=== PATIENT | male | born 1945 | race Caucasian/White ===

== ENCOUNTER 2016-08-28 13:22 | Inpatient (IN) | payer MEDICARE, OTHER ==
[~2016-08-28] VITALS: Ht 167.6 cm; Wt 94.5 kg
[~2016-08-28 13:22] MED LIST: ALBU2.5V13 IH; ALLO100T PO; AMIO200T7 PO; ASPI81TA2 PO; BUME2TAB PO; CALC1TAB67 PO; CHOL20002 PO; CIPR250T PO; CLIN300C86 PO; DOCU100C5 PO; ENOX40DI SQ; FERR-26 PO; FLUT16SP2 NS; GLIM2TAB2 PO; GLUC1TAB71 PO; GUAI-42 PO; INSU100V13 SQ; LISI-334 PO; MELA1TAB6 PO; METO25TA4 PO; MULT-658 PO; OMEG-113 PO; OMEG1CAP6 PO; OXYC-323 PO; Oxycodone Hcl/Acetaminophen PO; PHYT100T PO; POTA10TA31 PO; RANI150T2 PO; SIMV20TA3 PO; SITA100T PO; TRAM50TA PO; WARF2TAB7 PO; WARF3TAB PO; WARF3TAB7 PO; WARF5TAB7 PO; ZOLP10TA4 PO; ZOLP5TAB PO
[2016-08-28] MEDS ORDERED: ALEN70TA5 PO (14:52)
--- NOTE | 2016-08-28 15:47 | EKG ---
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
--- NOTE | 2016-08-28 16:00 | RAD ---
Indication: Shortness of air. Time of exam 1554 hours. Correlation is made with prior exam from 07/12/2015. The heart remains enlarged. There are changes of median sternotomy. Cardiac pacemaker remains in place. Congestive changes in both lungs are noted. There appear to be small bilateral effusions. There is no pneumothorax. Impression: Findings consistent with congestive failure. PQRS Compliance Statement: One or more of the following individualized dose reduction techniques were utilized for this examination: 1. Automated exposure control 2. Adjustment of the mA and/or kV according to patient size 3. Use of iterative reconstruction technique
[2016-08-28 16:30] LABS: BASO # 0.1 x10^3/uL (0.0-0.2); BASO % 1 % (0-3); EOS % 3 % (0-3); HEMATOCRIT 38.3 % (39.0-53.0); HEMOGLOBIN 12.1 g/dL (13.0-17.5); LYMPH # 0.9 x10^3/uL (1.0-4.8); LYMPH % 10 % (24-48); MEAN CORPUSCULAR HEMOGLOBIN 25 pg (25-35); MEAN CORPUSCULAR HGB CONC 32 g/dL (31-37); MEAN CORPUSCULAR VOLUME 80 fL (79-100); MONO % 9 % (0-9); NEUT % 77 % (31-73); PLATELET COUNT 231 x10^3/uL (140-400); RED BLOOD COUNT 4.81 x10^6/uL (4.30-5.70); RED CELL DISTRIBUTION WIDTH 18.9 % (11.5-14.5); WHITE BLOOD COUNT 9.6 x10^3/uL (4.0-11.0)
[2016-08-28 16:45] LABS: CALCIUM 9.9 mg/dL (8.5-10.1); CREATININE 1.4 mg/dL (0.7-1.3); GFR 49.7; POTASSIUM 4.2 mmol/L (3.5-5.1)
[2016-08-28 16:51] LABS: ALBUMIN 3.3 g/dL (3.4-5.0); ALBUMIN/GLOBULIN RATIO 0.9 (1.0-1.7); TOTAL BILIRUBIN 0.8 mg/dL (0.2-1.0); TOTAL PROTEIN 7.1 g/dL (6.4-8.2)
[2016-08-28 16:53] LABS: BILIRUBIN,URINE NEGATIVE (NEG); GLUCOSE,URINE NEGATIVE (NEG); NITRITE,URINE NEGATIVE (NEG); PROTEIN,URINE 30 mg/dL (NEG-TRACE); UROBILINOGEN,URINE 0.2 mg/dL (0.2 mg/dL)
[2016-08-28] MEDS ORDERED: IV NORMAL SALINE 1000ML BAG 1,000 ML IV SCH (17:16)
[2016-08-28 17:18] LABS: BACTERIA,URINE 0 /HPF (0-FEW); SQUAMOUS EPITHELIAL CELL,UR OCC /LPF; WBC,URINE 0 /HPF (0-4)
--- NOTE | 2016-08-28 17:20 | PHYS DOC ---
Past Medical History Past Medical History: A-Fib, Arthritis, CAD, Diabetes-Type II, Hypertension Past Surgical History: Coronary Bypass Surgery Additional Past Surgical Histo: carpal tunnel right, "lung cleaning", cardiac stents X 7, r thoracotomy Alcohol Use: None Drug Use: None Adult General Chief Complaint Chief Complaint: SHORTNESS OF BREATH HPI HPI Patient is a 71 year old male who presents with complaint of worsening shortness of breath. Patient states that he started having symptoms over the past 2 weeks, however they acutely became worse over the past 24 hours. Patient states that he is unable to ambulate normal distances before becoming severely short of breath. Patient denies any chest pain or fever associated with his symptoms. Patient has history of atrial fibrillation, myocardial infarction, and congestive heart failure. Patient follows a Dr. Mondragon of cardiology and Dr. Torres of nephrology. Patient has been taking his water pill at home with no improvement in symptoms. Patient states that he has had increased abdominal girth over the past 2 weeks as well as weight gain which he attributes to edema. Review of Systems Review of Systems Constitutional: Denies fever or chills [] Eyes: Denies change in visual acuity, redness, or eye pain [] HENT: Denies nasal congestion or sore throat [] Respiratory: Orthopnea, dyspnea on exertion [] Cardiovascular: Lower extremity and abdominal edema, denies chest pain [] GI: Denies abdominal pain, nausea, vomiting, bloody stools or diarrhea [] : Denies dysuria or hematuria [] Musculoskeletal: Denies back pain or joint pain [] Integument: Denies rash or skin lesions [] Neurologic: Denies headache, focal weakness or sensory changes [] Allergies Allergies Allergies Coded Allergies Type Severity Reaction Last Updated Verified Penicillins Allergy Intermediate 08/28/16 Yes morphine Allergy Intermediate "it does bad things" 06/21/15 Yes NSAIDS (Non-Steroidal Anti-Inflamma Adverse Reaction Severe AVOIDS DUE TO CHRONIC KIDNEY DISEASE 06/21/15 Yes Physical Exam Physical Exam Constitutional: Alert, afebrile, appears in [id number] respiratory distress. [] HENT: Normocephalic, atraumatic, bilateral external ears normal, oropharynx moist, no oral exudates, nose normal. [] Eyes: PERRLA, EOMI, conjunctiva normal, no discharge. [] Neck: Normal range of motion, no tenderness, supple, no stridor. [] Cardiovascular: Regular rate and rhythm, no murmur [] Lungs & Thorax: Tachypneic, bilateral rales, mildly restricted air movement bilaterally [] Abdomen: Bowel sounds normal, mild to moderate abdominal distention with abdominal wall edema present, no tenderness, no masses, no pulsatile masses. [] Skin: Warm, dry, no erythema, no rash. [] Back: No tenderness, no CVA tenderness. [] Extremities: No tenderness, no cyanosis, no clubbing, ROM intact, 2+ pitting edema in the bilateral lower extremities. [] Neurologic: Alert and oriented X 3, normal motor function, normal sensory function, no focal deficits noted. [] Current Patient Data Vital Signs Vital Signs Date Time Temp Pulse Resp B/P Pulse Ox O2 Delivery O2 Flow Rate FiO2 08/28/16 16:14 80 30 140/88 91 Room Air 08/28/16 14:56 98.5 98.5 Lab Values Laboratory Tests Test 08/28/16 16:00 08/28/16 16:20 White Blood Count 9.6x10^3/uL (4.0-11.0) Red Blood Count 4.81x10^6/uL (4.30-5.70) Hemoglobin 12.1g/dL (13.0-17.5) L Hematocrit 38.3% (39.0-53.0) L Mean Corpuscular Volume 80fL (79-100) Mean Corpuscular Hemoglobin 25pg (25-35) Mean Corpuscular Hemoglobin Concent 32g/dL (31-37) Red Cell Distribution Width 18.9% (11.5-14.5) H Platelet Count 231x10^3/uL (140-400) Neutrophils (%) (Auto) 77% (31-73) H Lymphocytes (%) (Auto) 10% (24-48) L Monocytes (%) (Auto) 9% (0-9) Eosinophils (%) (Auto) 3% (0-3) Basophils (%) (Auto) 1% (0-3) Neutrophils # (Auto) 7.4x10^3uL (1.8-7.7) Lymphocytes # (Auto) 0.9x10^3/uL (1.0-4.8) L Monocytes # (Auto) 0.9x10^3/uL (0.0-1.1) Eosinophils # (Auto) 0.3x10^3/uL (0.0-0.7) Basophils # (Auto) 0.1x10^3/uL (0.0-0.2) Sodium Level 144mmol/L (136-145) Potassium Level 4.2mmol/L (3.5-5.1) Chloride Level 104mmol/L (98-107) Carbon Dioxide Level 33mmol/L (21-32) H Anion Gap 7 (6-14) Blood Urea Nitrogen 33mg/dL (8-26) H Creatinine 1.4mg/dL (0.7-1.3) H Estimated GFR (Cockcroft-Gault) 49.7 BUN/Creatinine Ratio 24 (6-20) H Glucose Level 178mg/dL (70-99) H Calcium Level 9.9mg/dL (8.5-10.1) Total Bilirubin 0.8mg/dL (0.2-1.0) Aspartate Amino Transferase (AST) 40U/L (15-37) H Alanine Aminotransferase (ALT) 36U/L (16-63) Alkaline Phosphatase 174U/L (46-116) H Creatine Kinase 226U/L (39-308) Creatine Kinase MB (Mass) 9.0ng/mL (0.0-3.6) H Creatine Kinase MB Relative Index 4.0% (0-4) Troponin I Quantitative 0.043ng/mL (0.000-0.055) NS-Xzj-P-Type Natriuretic Peptide 05821sh/mL (0-124) H Total Protein 7.1g/dL (6.4-8.2) Albumin 3.3g/dL (3.4-5.0) L Albumin/Globulin Ratio 0.9 (1.0-1.7) L Prothrombin Time 25.4SEC (11.7-14.0) H Prothrombin Time INR 2.5 (0.8-1.1) H Laboratory Tests 08/28/16 16:00 Laboratory Tests 08/28/16 16:00 EKG EKG Interpreted by me: 80 bpm, Paced ventricular rhythm, no acute ST elevations or depressions [] Radiology/Procedures Radiology/Procedures [facility] [address] [place] [address] IMAGING REPORT Signed PATIENT: ELENI HALL ACCOUNT: [id number] : 1945 LOCATION: ER AGE: 71 SEX: M EXAM STATUS: REG ER ORD. PHYSICIAN: FRANCISCO KING MD REASON: shortness of breath PROCEDURE: PORTABLE CHEST 1V Indication: Shortness of air. Time of exam 1554 hours. Correlation is made with prior exam from 07/12/2015. The heart remains enlarged. There are changes of median sternotomy. Cardiac pacemaker remains in place. Congestive changes in both lungs are noted. There appear to be small bilateral effusions. There is no pneumothorax. Impression: Findings consistent with congestive failure. PQRS Compliance Statement: One or more of the following individualized dose reduction techniques were utilized for this examination: 1. Automated exposure control 2. Adjustment of the mA and/or kV according to patient size 3. Use of iterative reconstruction technique DICTATED and SIGNED BY: TAMY DUMONT MD DATE: 08/28/167 CC: FRANCISCO KING MD; ISAAC GROSS MD ~ [] Course & Med Decision Making Course & Med Decision Making Pertinent Labs and Imaging studies reviewed. (See chart for details) Patient appears to be in acute congestive heart failure. The patient was given 80 mg of IV Lasix. Patient will need to be admitted for further treatment as he has visible signs of pulmonary edema on his chest x-ray. I spoke with Dr. Morris who accepted care of patient in hospital. A consult was placed to Dr. Mondragon of cardiology to follow with patient in hospital. Dragon Disclaimer Dragon Disclaimer This electronic medical record was generated, in whole or in part, using a voice recognition dictation system. Departure Departure Impression: Primary Impression: Acute on chronic congestive heart failure Additional Impression: Chronic renal insufficiency Disposition: ADMITTED INPATIENT Admitting Physician: Lucian Morris Condition: GUARDED Referrals: ISAAC GROSS MD (PCP) Problem Qualifiers Primary Impression: Acute on chronic congestive heart failure Congestive heart failure type: unspecified congestive heart failure type Qualified Code: I50.9 - Heart failure, unspecified Additional Impression: Chronic renal insufficiency Chronic kidney disease stage: stage 3 (moderate) Qualified Code: N18.3 - Chronic kidney disease, stage 3 (moderate) FRANCISCO KING MD Aug 28, 2016 17:20
[2016-08-28] MEDS ORDERED: ONDANSETRON PF 4 MG/2 ML VIAL. IV PRN (17:30)
[2016-08-28] MEDS ORDERED: ACETAMINOPHEN 325 MG TABLET. PO PRN (17:30)
[2016-08-28] MEDS ORDERED: FENTANYL PF 100 MCG/2 ML VIAL. IV PRN (17:30)
[2016-08-28 18:00] VITALS: BP 129/76
[2016-08-28] MEDS ORDERED: FUROSEMIDE 100 MG/10 ML VIAL IVP ONE (18:00)
[2016-08-28] MEDS ORDERED: GUAI-42 PO (18:49)
[2016-08-28] MEDS ORDERED: AMOX1TAB61 PO (18:49)
[2016-08-28] MEDS ORDERED: WARF2.5T7 PO (18:49)
[2016-08-28] MEDS ORDERED: MULT-245 PO (18:49)
[2016-08-28] MEDS ORDERED: ACET500T33 PO (18:49)
[2016-08-28] MEDS ORDERED: CHOL20002 PO (18:49)
[2016-08-28] MEDS ORDERED: WARF5TAB7 PO (18:49)
[2016-08-28] MEDS ORDERED: POTA20TA82 PO (18:49)
[2016-08-28] MEDS ORDERED: DEXTROSE 50% 25 GM / 50ML DISP.SYRIN. IV PRN (19:00)
[2016-08-28 19:05] VITALS: BP 130/80
[2016-08-28] MEDS ORDERED: OXYCODONE/APAP 5/325 TABLET. PO PRN (19:30)
[2016-08-28] MEDS ORDERED: ACETAMINOPHEN 500 MG TABLET PO PRN (19:30)
[2016-08-28 20:01] LABS: INR 2.5 (0.8-1.1); PROTHROMBIN TIME PATIENT 25.4 SEC (11.7-14.0)
--- NOTE | 2016-08-28 20:41 | PDOC1 ---
History and Physical Past Medical History Cardiovascular: AFIB, CAD, CHF, HTN Pulmonary: Pneumonia Endocrine: Diabetes Past Surgical History Past Surgical History: CABG, Total knee replacement Family History Family History: Cancer, Diabetes, Heart Disease Social History ALCOHOL: none Drugs: None Current Problem List Problem List Problems Medical Problems: (1) Acute on chronic congestive heart failure Status: Acute Current Medications Current Medications Current Medications Medications (Trade) Dose Ordered Sig/Logan Start Time Stop Time Status Last Admin Dose Admin Acetaminophen (Tylenol) 500 mg PRN Q12HR PRN 08/28/16 19:30 Allopurinol (Zyloprim) 100 mg QHS 08/28/16 21:00 Amoxicillin/ Clavulanate Potassium (Augmentin 875/ 125mg) 1 tab BID 08/28/16 21:00 Aspirin (Children'S Aspirin) 81 mg DAILY 08/29/16 09:00 Bumetanide (Bumex) 2 mg DAILYWBKFT 08/29/16 08:00 Dextrose 12.5 gm PRN Q15MIN PRN 08/28/16 19:00 Famotidine (Pepcid) 20 mg BID 08/28/16 21:00 Fentanyl Citrate 50 mcg 50 mcg PRN Q2HR PRN 08/28/16 17:30 08/29/16 17:29 Furosemide (Lasix) 80 mg 1X ONCE 08/28/16 18:00 08/28/16 18:01 DC 08/28/16 19:37 80 MG Guaifenesin (MUCINEX ER with DM) 1 tab QHS 08/28/16 21:00 Insulin Aspart (Novolog) 0-9 UNITS TIDWMEALS 08/29/16 08:00 Insulin Detemir (Levemir) 20 units QHS 08/28/16 21:00 Linagliptin (Tradjenta) 5 mg DAILY 08/29/16 09:00 Multivitamins/ Calcium (Thera M Plus) 1 tab DAILY 08/29/16 09:00 Non-Formulary Medication 1 tab QFR 08/31/16 16:00 UNV Ondansetron HCl (Zofran) 4 mg PRN Q8HRS PRN 08/28/16 17:30 08/29/16 17:29 Oxycodone/ Acetaminophen (Percocet 5/325) 1 tab PRN Q4HRS PRN 08/28/16 19:30 Potassium Chloride (Klor-Con) 20 meq DAILYWBKFT 08/29/16 08:00 Simvastatin (Zocor) 20 mg HS 08/28/16 21:00 Sodium Chloride (Iv Sodium Chloride 0.9% 1000ml Bag) 1,000 ml @ 30 mls/hr Q24H 08/28/16 17:16 08/29/16 17:15 Vitamin D (Vitamin D3) 3,000 unit DAILY 08/29/16 09:00 Warfarin Sodium (Coumadin Per Physician) 1 each PRN DAILY PRN 08/28/16 20:15 Warfarin Sodium (Coumadin) 5 mg DAILY16 08/28/16 21:00 Allergies Allergies Allergies Coded Allergies Type Severity Reaction Last Updated Verified Penicillins Allergy Intermediate 08/28/16 Yes morphine Allergy Intermediate "it does bad things" 06/21/15 Yes NSAIDS (Non-Steroidal Anti-Inflamma Adverse Reaction Severe AVOIDS DUE TO CHRONIC KIDNEY DISEASE 06/21/15 Yes ROS Review of System CONSTITUTIONAL: No fever or chills EYES: No recent changes SKIN: No rash or itching CARDIOVASCULAR: sob and weight gain RESPIRATORY: No SOB or cough GASTROINTESTINAL: No nausea, vomiting or abdominal pain NEUROLOGICAL: No headaches or weakness ENDOCRINE: No cold or heat intolerance GENITOURINARY: No urgency or frequency of urination MUSCULOSKELETAL: No back pain or joint pain LYMPHATICS: No enlarged lymph nodes PSYCHIATRIC: No anxiety or depression Physical Exam Physical Exam GEN.: No apparent distress. Alert and oriented. HEENT: Head is normocephalic, atraumatic NECK: Supple. no jvd LUNGS: Clear to auscultation. basal rales HEART: RRR, S1, S2 present. Peripheral pulses intact ABDOMEN: Soft, nontender. Positive bowel sounds. EXTREMITIES: Without any cyanosis. +1 edema NEUROLOGIC: Normal speech, normal tone PSYCHIATRIC: Normal affect, normal mood. SKIN: No ulcerations Vitals Vitals Vital Signs Date Time Temp Pulse Resp B/P Pulse Ox O2 Delivery O2 Flow Rate FiO2 08/28/16 19:05 98.5 85 18 130/80 96 Room Air 98.5 Labs Labs Laboratory Tests Test 08/28/16 16:00 08/28/16 16:20 08/28/16 16:45 08/28/16 18:09 White Blood Count 9.6x10^3/uL (4.0-11.0) Red Blood Count 4.81x10^6/uL (4.30-5.70) Hemoglobin 12.1g/dL (13.0-17.5) Hematocrit 38.3% (39.0-53.0) Mean Corpuscular Volume 80fL (79-100) Mean Corpuscular Hemoglobin 25pg (25-35) Mean Corpuscular Hemoglobin Concent 32g/dL (31-37) Red Cell Distribution Width 18.9% (11.5-14.5) Platelet Count 231x10^3/uL (140-400) Neutrophils (%) (Auto) 77% (31-73) Lymphocytes (%) (Auto) 10% (24-48) Monocytes (%) (Auto) 9% (0-9) Eosinophils (%) (Auto) 3% (0-3) Basophils (%) (Auto) 1% (0-3) Neutrophils # (Auto) 7.4x10^3uL (1.8-7.7) Lymphocytes # (Auto) 0.9x10^3/uL (1.0-4.8) Monocytes # (Auto) 0.9x10^3/uL (0.0-1.1) Eosinophils # (Auto) 0.3x10^3/uL (0.0-0.7) Basophils # (Auto) 0.1x10^3/uL (0.0-0.2) Sodium Level 144mmol/L (136-145) Potassium Level 4.2mmol/L (3.5-5.1) Chloride Level 104mmol/L (98-107) Carbon Dioxide Level 33mmol/L (21-32) Anion Gap 7 (6-14) Blood Urea Nitrogen 33mg/dL (8-26) Creatinine 1.4mg/dL (0.7-1.3) Estimated GFR (Cockcroft-Gault) 49.7 BUN/Creatinine Ratio 24 (6-20) Glucose Level 178mg/dL (70-99) Calcium Level 9.9mg/dL (8.5-10.1) Total Bilirubin 0.8mg/dL (0.2-1.0) Aspartate Amino Transf (AST/SGOT) 40U/L (15-37) Alanine Aminotransferase (ALT/SGPT) 36U/L (16-63) Alkaline Phosphatase 174U/L (46-116) Creatine Kinase 226U/L (39-308) Creatine Kinase MB (Mass) 9.0ng/mL (0.0-3.6) Creatine Kinase MB Relative Index 4.0% (0-4) Troponin I Quantitative 0.043ng/mL (0.000-0.055) ER-Bht-M-Type Natriuretic Peptide 84498jg/mL (0-124) Total Protein 7.1g/dL (6.4-8.2) Albumin 3.3g/dL (3.4-5.0) Albumin/Globulin Ratio 0.9 (1.0-1.7) Prothrombin Time 25.4SEC (11.7-14.0) Prothromb Time International Ratio 2.5 (0.8-1.1) Urine Collection Type Unknown Urine Color Yellow Urine Clarity Clear Urine pH 5.0 Urine Specific [place] 1.020 Urine Protein 30mg/dL (NEG-TRACE) Urine Glucose (UA) Negativemg/dL (NEG) Urine Ketones (Stick) Negativemg/dL (NEG) Urine Blood Moderate (NEG) Urine Nitrite Negative (NEG) Urine Bilirubin Negative (NEG) Urine Urobilinogen Dipstick 0.2mg/dL (0.2 mg/dL) Urine Leukocyte Esterase Negative (NEG) Urine RBC 3-5/HPF (0-2) Urine WBC 0/HPF (0-4) Urine Squamous Epithelial Cells Occ/LPF Urine Bacteria 0/HPF (0-FEW) Urine Mucus Marked/LPF Glucose (Fingerstick) 140mg/dL (70-99) Laboratory Tests Test 08/28/16 16:00 08/28/16 16:20 08/28/16 16:45 08/28/16 18:09 White Blood Count 9.6x10^3/uL (4.0-11.0) Red Blood Count 4.81x10^6/uL (4.30-5.70) Hemoglobin 12.1g/dL (13.0-17.5) Hematocrit 38.3% (39.0-53.0) Mean Corpuscular Volume 80fL (79-100) Mean Corpuscular Hemoglobin 25pg (25-35) Mean Corpuscular Hemoglobin Concent 32g/dL (31-37) Red Cell Distribution Width 18.9% (11.5-14.5) Platelet Count 231x10^3/uL (140-400) Neutrophils (%) (Auto) 77% (31-73) Lymphocytes (%) (Auto) 10% (24-48) Monocytes (%) (Auto) 9% (0-9) Eosinophils (%) (Auto) 3% (0-3) Basophils (%) (Auto) 1% (0-3) Neutrophils # (Auto) 7.4x10^3uL (1.8-7.7) Lymphocytes # (Auto) 0.9x10^3/uL (1.0-4.8) Monocytes # (Auto) 0.9x10^3/uL (0.0-1.1) Eosinophils # (Auto) 0.3x10^3/uL (0.0-0.7) Basophils # (Auto) 0.1x10^3/uL (0.0-0.2) Sodium Level 144mmol/L (136-145) Potassium Level 4.2mmol/L (3.5-5.1) Chloride Level 104mmol/L (98-107) Carbon Dioxide Level 33mmol/L (21-32) Anion Gap 7 (6-14) Blood Urea Nitrogen 33mg/dL (8-26) Creatinine 1.4mg/dL (0.7-1.3) Estimated GFR (Cockcroft-Gault) 49.7 BUN/Creatinine Ratio 24 (6-20) Glucose Level 178mg/dL (70-99) Calcium Level 9.9mg/dL (8.5-10.1) Total Bilirubin 0.8mg/dL (0.2-1.0) Aspartate Amino Transf (AST/SGOT) 40U/L (15-37) Alanine Aminotransferase (ALT/SGPT) 36U/L (16-63) Alkaline Phosphatase 174U/L (46-116) Creatine Kinase 226U/L (39-308) Creatine Kinase MB (Mass) 9.0ng/mL (0.0-3.6) Creatine Kinase MB Relative Index 4.0% (0-4) Troponin I Quantitative 0.043ng/mL (0.000-0.055) SN-Ksj-O-Type Natriuretic Peptide 75875bm/mL (0-124) Total Protein 7.1g/dL (6.4-8.2) Albumin 3.3g/dL (3.4-5.0) Albumin/Globulin Ratio 0.9 (1.0-1.7) Prothrombin Time 25.4SEC (11.7-14.0) Prothromb Time International Ratio 2.5 (0.8-1.1) Urine Collection Type Unknown Urine Color Yellow Urine Clarity Clear Urine pH 5.0 Urine Specific [place] 1.020 Urine Protein 30mg/dL (NEG-TRACE) Urine Glucose (UA) Negativemg/dL (NEG) Urine Ketones (Stick) Negativemg/dL (NEG) Urine Blood Moderate (NEG) Urine Nitrite Negative (NEG) Urine Bilirubin Negative (NEG) Urine Urobilinogen Dipstick 0.2mg/dL (0.2 mg/dL) Urine Leukocyte Esterase Negative (NEG) Urine RBC 3-5/HPF (0-2) Urine WBC 0/HPF (0-4) Urine Squamous Epithelial Cells Occ/LPF Urine Bacteria 0/HPF (0-FEW) Urine Mucus Marked/LPF Glucose (Fingerstick) 140mg/dL (70-99) VTE Prophylaxis Ordered VTE Prophylaxis Devices: Yes VTE Pharmacological Prophylaxi: No FAVIAN EMANUEL MD Aug 28, 2016 20:41
[2016-08-28] MEDS ORDERED: WARFARIN 5 MG TABLET. PO SCH (21:00)
[2016-08-28] MEDS: SIMVASTATIN 20 MG TABLET PO SCH (21:18)
[2016-08-28] MEDS: ALLOPURINOL 100 MG TABLET. PO SCH (21:18)
[2016-08-28] MEDS: AMOXICILLIN/K CLAV 875/125MG TABLET. PO SCH (21:18)
[2016-08-28] MEDS: FAMOTIDINE 20 MG TABLET. PO SCH (21:18)
[2016-08-28] MEDS: GUAIFENESIN DM 600/30MG TAB.ER.12H. PO SCH (21:19)
[2016-08-28] MEDS: INSULIN DETEMIR 300 UNITS/3 ML INSULN.PEN. SQ SCH (21:21)
[2016-08-28 23:00] VITALS: BP 151/81
--- NOTE | 2016-08-29 00:54 | HP ---
ADMIT DATE: 08/28/2016 CHIEF COMPLAINT: Shortness of breath and weight gain. HISTORY OF PRESENT ILLNESS: This is a 71-year-old male patient with prior history of AFib and type 2 diabetes mellitus, presented to the ER with complaints of shortness of breath and worsening of abdominal distention and weight gain for nearly 2 weeks. The patient has been complaining of severe exertional shortness of breath, even he could not be able to walk for a few feet and he was recommended by one of the family members to ____ the ER and upon arrival to ER, he received IV Lasix. The patient's symptoms improved. At the time of my examination, he received his home medications and symptoms are getting better. The patient denies any chest pain, shortness of breath or complaints with medications. PAST MEDICAL HISTORY: Please see my electronic H and P. REVIEW OF SYSTEMS: Please see my electronic H and P. PHYSICAL EXAMINATION: Please see my electronic H and P. LABORATORY FINDINGS: WBC 9.6, hemoglobin 12.1, MCV is 80, platelets 231. Chemistry: Sodium is 144, potassium 4.2, chloride is ____, BUN is 33, creatinine 1.4 and glucose is 178. Coagulation panel: INR is 2.5, PT is 25.4. Urine: Protein 30, nitrites negative, leukocyte esterase negative. IMAGING STUDIES: Chest x-ray consistent with congestive failure. ASSESSMENT: 1. Acute on chronic congestive heart failure. 2. Atrial fibrillation, currently rate controlled. 3. Type 2 diabetes mellitus with mild hyperglycemia. 4. Hypertension. 5. Arthritis. PLAN: 1. The patient received 80 of IV Lasix and I will resume his home medications at this time. Discussed with RN. We will monitor his weight daily and also monitor ____ and intake and output. 2. Pharmacy needs to dose his Warfarin and goal is 2-3 for atrial fibrillation. 3. Sliding scale insulin for hyperglycemia. Home medications reviewed and reconciled. 4. The patient was on Augmentin for unclear etiology. I will continue at this time. 5. No DVT prophylaxis due to warfarin. 6. Cardiology has been consulted for further recommendations. I will hold off echocardiogram at this time. Cardiology will try to find his old records. 7. PT/INR daily. 8. CBC, BMP in a.m. FAVIAN EMANUEL MD DR: Popeye JOB#: [id number] / [id number]
[2016-08-29 03:38] VITALS: BP 148/86
[2016-08-29 04:30] LABS: CALCIUM 9.2 mg/dL (8.5-10.1); CREATININE 1.5 mg/dL (0.7-1.3); GFR 45.9; POTASSIUM 4.3 mmol/L (3.5-5.1)
[2016-08-29 04:40] LABS: INR 2.8 (0.8-1.1); PROTHROMBIN TIME PATIENT 27.8 SEC (11.7-14.0)
[2016-08-29 04:51] LABS: BASO # 0.1 x10^3/uL (0.0-0.2); BASO % 1 % (0-3); EOS % 4 % (0-3); HEMATOCRIT 35.2 % (39.0-53.0); HEMOGLOBIN 11.3 g/dL (13.0-17.5); LYMPH # 0.8 x10^3/uL (1.0-4.8); LYMPH % 10 % (24-48); MEAN CORPUSCULAR HEMOGLOBIN 25 pg (25-35); MEAN CORPUSCULAR HGB CONC 32 g/dL (31-37); MEAN CORPUSCULAR VOLUME 78 fL (79-100); MONO % 12 % (0-9); NEUT % 73 % (31-73); PLATELET COUNT 209 x10^3/uL (140-400); RED BLOOD COUNT 4.53 x10^6/uL (4.30-5.70); RED CELL DISTRIBUTION WIDTH 18.8 % (11.5-14.5)
[2016-08-29 08:00] VITALS: BP 129/74
[2016-08-29] MEDS: INSULIN ASPART 300 UNITS/3 ML INSULN.PEN SQ SCH ×3 (08:00→17:00)
[2016-08-29] MEDS: BUMETANIDE 1 MG TABLET PO SCH (08:59)
[2016-08-29] MEDS: FAMOTIDINE 20 MG TABLET. PO SCH ×2 (08:59→21:27)
[2016-08-29] MEDS: POTASSIUM CHLORIDE 20 MEQ TABLET.ER. PO SCH (08:59)
[2016-08-29] MEDS: AMOXICILLIN/K CLAV 875/125MG TABLET. PO SCH ×2 (08:59→21:27)
[2016-08-29] MEDS: CHOLECALCIFEROL (VITAMIN D3) 1,000 UNIT TABLET PO SCH (08:59)
[2016-08-29] MEDS: ASPIRIN 81 MG TAB.CHEW PO SCH (08:59)
[2016-08-29] MEDS: MULTIVITAMIN with MINERAL TABLET. PO SCH (09:00)
--- NOTE | 2016-08-29 10:47 | PDOC2 ---
CONSULT Date of Consult Date of Consult DATE: 08/29/16 TIME: 10:40 Reason for Consult Reason for Consult: RENAL FAILURE Referring Physician Referring Physician: JENAE Identification/Chief Complaint Chief Complaint SOB Source Source: Chart review History of Present Illness Reason for Visit: THIS IS A 71 YR OLD ADMITTED WITH SOB AND A DX OF CHF. HE IS FEELING BETTER AFTER IV LASIX. HE HAS BEEN O BUMEX AT HOME. HIS CR IS 1.5. [facility]LD LABS SHOWED CKD STAGE 3 WITH BASELINE CR OF 1.2-1.6. HE HAS CKD DUE TO DM II. UA IS NEG. CARDIOLOGY EVAL IS ONGOING. HE ALSO HAS SOME INFLAMMATORY EDEMA IN HIS PRETIBIAL AREAS DUE TO WOUNDS Past Medical History Cardiovascular: AFIB, CAD, CHF, HTN Pulmonary: Pneumonia Renal/: Chronic renal insuff Endocrine: Diabetes Past Surgical History Past Surgical History: CABG, Total knee replacement Family History Family History: Cancer, Diabetes, Heart Disease Social History ALCOHOL: none Drugs: None Lives: with Family Current Problem List Problem List Problems Medical Problems: (1) Acute on chronic congestive heart failure Status: Acute (2) Chronic renal insufficiency Status: Acute Current Medications Current Medications Current Medications Ondansetron HCl (Zofran) 4 mg PRN Q8HRS PRN IV NAUSEA/VOMITING; Start 08/28/16 at 17:30; Stop 08/29/16 at 17:29 Fentanyl Citrate 50 mcg 50 mcg PRN Q2HR PRN IV PAIN; Start 08/28/16 at 17:30; Stop 08/29/16 at 17:29 Sodium Chloride (Iv Sodium Chloride 0.9% 1000ml Bag) 1,000 ml @ 30 mls/hr Q24H IV ; Start 08/28/16 at 17:16; Stop 08/28/16 at 21:33; Status DC Acetaminophen (Tylenol) 650 mg PRN Q4HRS PRN PO FEVER; Start 08/28/16 at 17:30 ; Stop 08/29/16 at 17:29 Furosemide (Lasix) 80 mg 1X ONCE IVP Last administered on 08/28/16t 19:37; Start 08/28/16 at 18:00; Stop 08/28/16 at 18:01; Status DC Insulin Aspart (Novolog) 0-9 UNITS TIDWMEALS SQ ; Start 08/29/16 at 08:00 Dextrose 12.5 gm PRN Q15MIN PRN IV SEE COMMENTS; Start 08/28/16 at 19:00 Acetaminophen (Tylenol) 500 mg PRN Q12HR PRN PO PAIN; Start 08/28/16 at 19:30 Allopurinol (Zyloprim) 100 mg QHS PO Last administered on 08/28/16 21:18; Start 08/28/16 at 21:00 Amoxicillin/ Clavulanate Potassium (Augmentin 875/ 125mg) 1 tab BID PO Last administered on 08/29/16 08:59; Start 08/28/16 at 21:00 Aspirin (Children'S Aspirin) 81 mg DAILY PO Last administered on 08/29/16 08: 59; Start 08/29/16 at 09:00 Guaifenesin (MUCINEX ER with DM) 1 tab QHS PO Last administered on 08/28/16 21 :19; Start 08/28/16 at 21:00 Oxycodone/ Acetaminophen (Percocet 5/325) 1 tab PRN Q4HRS PRN PO PAIN; Start at 19:30 Simvastatin (Zocor) 20 mg HS PO Last administered on 08/28/16 21:18; Start at 21:00 Warfarin Sodium (Coumadin) 2.5 mg QSU PO ; Start 09/02/16 at 16:00 Warfarin Sodium (Coumadin) 5 mg DAILY16 PO Last administered on 08/28/16 21:18 ; Start 08/28/16 at 21:00 Non-Formulary Medication 1 tab QFR PO ; Start 08/31/16 at 16:00; Status UNV Bumetanide (Bumex) 2 mg DAILYWBKFT PO Last administered on 08/29/16 08:59; Start 08/29/16 at 08:00 Vitamin D (Vitamin D3) 3,000 unit DAILY PO Last administered on 08/29/16 08:59 ; Start 08/29/16 at 09:00 Insulin Detemir (Levemir) 20 units QHS SQ Last administered on 08/28/16 21:21 ; Start 08/28/16 at 21:00 Multivitamins/ Calcium (Thera M Plus) 1 tab DAILY PO Last administered on 09:00; Start 08/29/16 at 09:00 Potassium Chloride (Klor-Con) 20 meq DAILYWBKFT PO Last administered on 08:59; Start 08/29/16 at 08:00 Famotidine (Pepcid) 20 mg BID PO Last administered on 08/29/16 08:59; Start at 21:00 Linagliptin (Tradjenta) 5 mg DAILY PO ; Start 08/29/16 at 09:00 Warfarin Sodium (Coumadin Per Physician) 1 each PRN DAILY PRN MC SEE COMMENTS Last administered on 08/29/16 09:51; Start 08/28/16 at 20:15 Active Scripts Active Reported Multi Vitamin Daily (Multivitamin) 1 Each Tablet 1 Each PO DAILY Vitamin D (Cholecalciferol (Vitamin D3)) 2,000 Unit Tablet 3,000 Unit PO DAILY Tylenol Extra Strength (Acetaminophen) 500 Mg Tablet 500 Mg PO PRN Q12HR PRN Augmentin 875-125 Tablet (Amoxicillin/Potassium Clav) 1 Each Tablet 1 Tab PO BID Mucinex Dm Er 600-30 Mg Tablet (Guaifenesin/Dextromethorphan) 1 Each Tab.er.12h 20-400 Each PO QHS Warfarin Sodium 2.5 Mg Tablet 2.5 Mg PO QSU Warfarin Sodium 5 Mg Tablet 5 Mg PO DAILY Potassium Chloride 20 Meq Tablet.er 20 Meq PO DAILY Alendronate Sodium 70 Mg Tablet 1 Tab PO QFR Percocet 5-325 Mg Tablet (Oxycodone/Acetaminophen) 1 Each Tablet 1-2 Tab PO Q4- 6HRS Levemir (Insulin Detemir) 100 Unit/1 Ml Vial 20 Unit SQ HS LAST DOSE GIVEN: DATE:06-23-15 TIME:9:00 p.m. NEXT DOSE DUE: DATE:06-24-15 TIME:9:00 p.m. Simvastatin 20 Mg Tablet 20 Mg PO HS LAST DOSE GIVEN: DATE:06-23-15 TIME:9:00 p.m. NEXT DOSE DUE: DATE:06-24-15 TIME:9:00 p.m. Bumetanide 2 Mg Tablet 2 Mg PO DAILYWBKFT LAST DOSE GIVEN: DATE:06-24-15 TIME:8:30 a.m. NEXT DOSE DUE: DATE:06-25-15 TIME:8:30 a.m. Aspirin 81 Mg Tab.chew 81 Mg PO LAST DOSE GIVEN: DATE:06-24-15 TIME:8:30 a.m. NEXT DOSE DUE: DATE:06-25-15 TIME:8:30 a.m. Januvia (Sitagliptin Phosphate) 100 Mg Tablet 100 Mg PO DAILYWBKFT Not taken while in hosp. May resume at home as directed Allopurinol 100 Mg Tablet 100 Mg PO QHS LAST DOSE GIVEN: DATE: 06/23 TIME: 5 pm NEXT DOSE DUE: DATE: 06/24 TIME: 5 pm Ranitidine Hcl 150 Mg Tablet 150 Mg PO BIDAC LAST DOSE GIVEN: DATE:06-24-15 TIME:8:30 a.m. NEXT DOSE DUE: DATE:06-24-15 TIME: 5:00 p.m. Allergies Allergies: Coded Allergies: Penicillins (Verified Allergy, Intermediate, 08/28/16) morphine (Verified Allergy, Intermediate, "it does bad things", 06/21/15) NSAIDS (Non-Steroidal Anti-Inflamma (Verified Adverse Reaction, Severe, AVOIDS DUE TO CHRONIC KIDNEY DISEASE, 06/21/15) ROS General: YES: Fatigue, Malaise PSYCHOLOGICAL ROS: YES: Anxiety Eyes: Yes Decreased vision HEENT: YES: Heacaches Respiratory: YES: Cough, Shortness of breath Cardiovascular: yes Edema, yes Orthopnea Genitourinary: YES Frequency Musculoskeletal: Yes Muscular Weakness Neurological: Yes Weakness Skin: Yes Other (PRETIBIAL AREA STASIS DISCOLORATION), Yes Skin Lesion Changes Physical Exam General: Alert, Oriented X3, Cooperative HEENT: Atraumatic, EOMI Lungs: Other (DECREASED AT BASES) Heart: Regular rate, Normal S1, Normal S2 Abdomen: Normal bowel sounds, Soft, No tenderness Extremities: No clubbing Skin: No breakdown Neuro: Normal speech, Cranial nerves 3-12 NL Psych/Mental Status: Mental status NL, Mood NL MUSCULOSKELETAL: No deformity Vitals VITALS Vital Signs Date Time Temp Pulse Resp B/P Pulse Ox O2 Delivery O2 Flow Rate FiO2 08/29/16 08:00 97.6 81 18 129/74 96 Nasal Cannula 2.0 97.6 Labs Labs Laboratory Tests Test 08/28/16 16:00 08/28/16 16:20 08/28/16 16:45 08/28/16 18:09 White Blood Count 9.6x10^3/uL (4.0-11.0) Red Blood Count 4.81x10^6/uL (4.30-5.70) Hemoglobin 12.1g/dL (13.0-17.5) Hematocrit 38.3% (39.0-53.0) Mean Corpuscular Volume 80fL (79-100) Mean Corpuscular Hemoglobin 25pg (25-35) Mean Corpuscular Hemoglobin Concent 32g/dL (31-37) Red Cell Distribution Width 18.9% (11.5-14.5) Platelet Count 231x10^3/uL (140-400) Neutrophils (%) (Auto) 77% (31-73) Lymphocytes (%) (Auto) 10% (24-48) Monocytes (%) (Auto) 9% (0-9) Eosinophils (%) (Auto) 3% (0-3) Basophils (%) (Auto) 1% (0-3) Neutrophils # (Auto) 7.4x10^3uL (1.8-7.7) Lymphocytes # (Auto) 0.9x10^3/uL (1.0-4.8) Monocytes # (Auto) 0.9x10^3/uL (0.0-1.1) Eosinophils # (Auto) 0.3x10^3/uL (0.0-0.7) Basophils # (Auto) 0.1x10^3/uL (0.0-0.2) Sodium Level 144mmol/L (136-145) Potassium Level 4.2mmol/L (3.5-5.1) Chloride Level 104mmol/L (98-107) Carbon Dioxide Level 33mmol/L (21-32) Anion Gap 7 (6-14) Blood Urea Nitrogen 33mg/dL (8-26) Creatinine 1.4mg/dL (0.7-1.3) Estimated GFR (Cockcroft-Gault) 49.7 BUN/Creatinine Ratio 24 (6-20) Glucose Level 178mg/dL (70-99) Calcium Level 9.9mg/dL (8.5-10.1) Total Bilirubin 0.8mg/dL (0.2-1.0) Aspartate Amino Transf (AST/SGOT) 40U/L (15-37) Alanine Aminotransferase (ALT/SGPT) 36U/L (16-63) Alkaline Phosphatase 174U/L (46-116) Creatine Kinase 226U/L (39-308) Creatine Kinase MB (Mass) 9.0ng/mL (0.0-3.6) Creatine Kinase MB Relative Index 4.0% (0-4) Troponin I Quantitative 0.043ng/mL (0.000-0.055) [place]-Ofp-J-Type Natriuretic Peptide 12635nw/mL (0-124) Total Protein 7.1g/dL (6.4-8.2) Albumin 3.3g/dL (3.4-5.0) Albumin/Globulin Ratio 0.9 (1.0-1.7) Prothrombin Time 25.4SEC (11.7-14.0) Prothromb Time International Ratio 2.5 (0.8-1.1) Urine Collection Type Unknown Urine Color Yellow Urine Clarity Clear Urine pH 5.0 Urine Specific [place] 1.020 Urine Protein 30mg/dL (NEG-TRACE) Urine Glucose (UA) Negativemg/dL (NEG) Urine Ketones (Stick) Negativemg/dL (NEG) Urine Blood Moderate (NEG) Urine Nitrite Negative (NEG) Urine Bilirubin Negative (NEG) Urine Urobilinogen Dipstick 0.2mg/dL (0.2 mg/dL) Urine Leukocyte Esterase Negative (NEG) Urine RBC 3-5/HPF (0-2) Urine WBC 0/HPF (0-4) Urine Squamous Epithelial Cells Occ/LPF Urine Bacteria 0/HPF (0-FEW) Urine Mucus Marked/LPF Glucose (Fingerstick) 140mg/dL (70-99) Test 08/28/16 20:54 08/28/16 21:17 08/29/16 03:55 08/29/16 08:07 Glucose (Fingerstick) 202mg/dL (70-99) 65mg/dL (70-99) Troponin I Quantitative 0.045ng/mL (0.000-0.055) 0.052ng/mL (0.000-0.055) White Blood Count 9.0x10^3/uL (4.0-11.0) Red Blood Count 4.53x10^6/uL (4.30-5.70) Hemoglobin 11.3g/dL (13.0-17.5) Hematocrit 35.2% (39.0-53.0) Mean Corpuscular Volume 78fL (79-100) Mean Corpuscular Hemoglobin 25pg (25-35) Mean Corpuscular Hemoglobin Concent 32g/dL (31-37) Red Cell Distribution Width 18.8% (11.5-14.5) Platelet Count 209x10^3/uL (140-400) Neutrophils (%) (Auto) 73% (31-73) Lymphocytes (%) (Auto) 10% (24-48) Monocytes (%) (Auto) 12% (0-9) Eosinophils (%) (Auto) 4% (0-3) Basophils (%) (Auto) 1% (0-3) Neutrophils # (Auto) 6.6x10^3uL (1.8-7.7) Lymphocytes # (Auto) 0.8x10^3/uL (1.0-4.8) Monocytes # (Auto) 1.1x10^3/uL (0.0-1.1) Eosinophils # (Auto) 0.3x10^3/uL (0.0-0.7) Basophils # (Auto) 0.1x10^3/uL (0.0-0.2) Prothrombin Time 27.8SEC (11.7-14.0) Prothromb Time International Ratio 2.8 (0.8-1.1) Sodium Level 145mmol/L (136-145) Potassium Level 4.3mmol/L (3.5-5.1) Chloride Level 106mmol/L (98-107) Carbon Dioxide Level 33mmol/L (21-32) Anion Gap 6 (6-14) Blood Urea Nitrogen 31mg/dL (8-26) Creatinine 1.5mg/dL (0.7-1.3) Estimated GFR (Cockcroft-Gault) 45.9 Glucose Level 110mg/dL (70-99) Calcium Level 9.2mg/dL (8.5-10.1) Magnesium Level 1.9mg/dL (1.8-2.4) Laboratory Tests Test 08/28/16 16:00 08/28/16 16:20 08/28/16 16:45 08/28/16 18:09 White Blood Count 9.6x10^3/uL (4.0-11.0) Red Blood Count 4.81x10^6/uL (4.30-5.70) Hemoglobin 12.1g/dL (13.0-17.5) Hematocrit 38.3% (39.0-53.0) Mean Corpuscular Volume 80fL (79-100) Mean Corpuscular Hemoglobin 25pg (25-35) Mean Corpuscular Hemoglobin Concent 32g/dL (31-37) Red Cell Distribution Width 18.9% (11.5-14.5) Platelet Count 231x10^3/uL (140-400) Neutrophils (%) (Auto) 77% (31-73) Lymphocytes (%) (Auto) 10% (24-48) Monocytes (%) (Auto) 9% (0-9) Eosinophils (%) (Auto) 3% (0-3) Basophils (%) (Auto) 1% (0-3) Neutrophils # (Auto) 7.4x10^3uL (1.8-7.7) Lymphocytes # (Auto) 0.9x10^3/uL (1.0-4.8) Monocytes # (Auto) 0.9x10^3/uL (0.0-1.1) Eosinophils # (Auto) 0.3x10^3/uL (0.0-0.7) Basophils # (Auto) 0.1x10^3/uL (0.0-0.2) Sodium Level 144mmol/L (136-145) Potassium Level 4.2mmol/L (3.5-5.1) Chloride Level 104mmol/L (98-107) Carbon Dioxide Level 33mmol/L (21-32) Anion Gap 7 (6-14) Blood Urea Nitrogen 33mg/dL (8-26) Creatinine 1.4mg/dL (0.7-1.3) Estimated GFR (Cockcroft-Gault) 49.7 BUN/Creatinine Ratio 24 (6-20) Glucose Level 178mg/dL (70-99) Calcium Level 9.9mg/dL (8.5-10.1) Total Bilirubin 0.8mg/dL (0.2-1.0) Aspartate Amino Transf (AST/SGOT) 40U/L (15-37) Alanine Aminotransferase (ALT/SGPT) 36U/L (16-63) Alkaline Phosphatase 174U/L (46-116) Creatine Kinase 226U/L (39-308) Creatine Kinase MB (Mass) 9.0ng/mL (0.0-3.6) Creatine Kinase MB Relative Index 4.0% (0-4) Troponin I Quantitative 0.043ng/mL (0.000-0.055) YL-Gbe-E-Type Natriuretic Peptide 43709is/mL (0-124) Total Protein 7.1g/dL (6.4-8.2) Albumin 3.3g/dL (3.4-5.0) Albumin/Globulin Ratio 0.9 (1.0-1.7) Prothrombin Time 25.4SEC (11.7-14.0) Prothromb Time International Ratio 2.5 (0.8-1.1) Urine Collection Type Unknown Urine Color Yellow Urine Clarity Clear Urine pH 5.0 Urine Specific [place] 1.020 Urine Protein 30mg/dL (NEG-TRACE) Urine Glucose (UA) Negativemg/dL (NEG) Urine Ketones (Stick) Negativemg/dL (NEG) Urine Blood Moderate (NEG) Urine Nitrite Negative (NEG) Urine Bilirubin Negative (NEG) Urine Urobilinogen Dipstick 0.2mg/dL (0.2 mg/dL) Urine Leukocyte Esterase Negative (NEG) Urine RBC 3-5/HPF (0-2) Urine WBC 0/HPF (0-4) Urine Squamous Epithelial Cells Occ/LPF Urine Bacteria 0/HPF (0-FEW) Urine Mucus Marked/LPF Glucose (Fingerstick) 140mg/dL (70-99) Test 08/28/16 20:54 08/28/16 21:17 08/29/16 03:55 08/29/16 08:07 Glucose (Fingerstick) 202mg/dL (70-99) 65mg/dL (70-99) Troponin I Quantitative 0.045ng/mL (0.000-0.055) 0.052ng/mL (0.000-0.055) White Blood Count 9.0x10^3/uL (4.0-11.0) Red Blood Count 4.53x10^6/uL (4.30-5.70) Hemoglobin 11.3g/dL (13.0-17.5) Hematocrit 35.2% (39.0-53.0) Mean Corpuscular Volume 78fL (79-100) Mean Corpuscular Hemoglobin 25pg (25-35) Mean Corpuscular Hemoglobin Concent 32g/dL (31-37) Red Cell Distribution Width 18.8% (11.5-14.5) Platelet Count 209x10^3/uL (140-400) Neutrophils (%) (Auto) 73% (31-73) Lymphocytes (%) (Auto) 10% (24-48) Monocytes (%) (Auto) 12% (0-9) Eosinophils (%) (Auto) 4% (0-3) Basophils (%) (Auto) 1% (0-3) Neutrophils # (Auto) 6.6x10^3uL (1.8-7.7) Lymphocytes # (Auto) 0.8x10^3/uL (1.0-4.8) Monocytes # (Auto) 1.1x10^3/uL (0.0-1.1) Eosinophils # (Auto) 0.3x10^3/uL (0.0-0.7) Basophils # (Auto) 0.1x10^3/uL (0.0-0.2) Prothrombin Time 27.8SEC (11.7-14.0) Prothromb Time International Ratio 2.8 (0.8-1.1) Sodium Level 145mmol/L (136-145) Potassium Level 4.3mmol/L (3.5-5.1) Chloride Level 106mmol/L (98-107) Carbon Dioxide Level 33mmol/L (21-32) Anion Gap 6 (6-14) Blood Urea Nitrogen 31mg/dL (8-26) Creatinine 1.5mg/dL (0.7-1.3) Estimated GFR (Cockcroft-Gault) 45.9 Glucose Level 110mg/dL (70-99) Calcium Level 9.2mg/dL (8.5-10.1) Magnesium Level 1.9mg/dL (1.8-2.4) Assessment/Plan Assessment/Plan IMP CHF-PROB DIASTOLIC DM II CKD STAGE 3 - CR STABLE AND AT BASELINE IN THE RANGE OF 1.2-1.6 HTN-IMPROVED PLAN CONT BUMEX ENC FLUID RESTRICTION ENC NA RESTRICTION CARDIOLOGY EVAL AND TX LABS IN AM WILL FOLLOW ELVA KOLB MD Aug 29, 2016 10:47
[2016-08-29 10:49] VITALS: BP 119/65
--- NOTE | 2016-08-29 11:53 | PDOC2 ---
GIRMA OCONNELL CORN DETASSELER MACHINE OPERATOR 08/29/16 1153: CARDIAC CONSULT DATE OF CONSULT Date of Consult DATE: 08/29/16 TIME: 11:07 REASON FOR CONSULT Reason for Consult: acute on chronic CHF REFERRING PHYSICIAN Referring Physician: Daniel SOURCE Source: Chart review, Patient HISTORY OF PRESENT ILLNESS HISTORY OF PRESENT ILLNESS This is a pleasant 71 yo male admitted for complains of AMBRIZ. Reports that in the last 8 days he has been having AMBRIZ but ok at rest. In the last few days he has not noticed any significant leg edema but notable for increasing head of bed elevation when sleeping, increased nonproductive cough, increasing AMBRIZ, PND. Notable for increasing insomnia. Denies any palpitations nor chest pain. Denies any dizziness. Few days he did wake up in the morning, was diaphoretic and noted that he was having hypoglycemic reaction. Today as an inpt he was noted this AM with BG in the 60s. He did not call or office nor proceed with his PCP. His saw her PCP yesterday and on the way to the car he was so AMBRIZ and requested her PCP to evaluated him and noted that his O2 sat was in the 60-70s. He was then encouraged to go to the hospital. Reports compliance with his diuretics, fluid intake and diet. His BP has been controlled very well since his last knee operation in 11/2015 that he was taken off all of his BP meds. He does not have any heart rate controlling medications currently. He does have RAHEEL but has not been using it. PAST MEDICAL HISTORY Cardiovascular: CAD, CHF, HTN, Hyperlipidemia Pulmonary: Other (Recurrent pleural effusion; RAHEEL) CENTRAL NERVOUS SYSTEM: Other (No pertinent history) GI: GERD, Hemorrhoids Heme/Onc: Anemia NOS Hepatobiliary: No pertinent hx Psych: No pertinent hx Musculoskeletal: Osteoarthritis, Other (knee infection) Rheumatologic: Gout Infectious disease: Other (multiple left knee infection prompting chronic augmentin treatment managed by [facility]. ) ENT: Allergic Rhinitis, Other (tinnitus) Renal/: Chronic renal insuff Endocrine: Diabetes (2) Dermatology: No pertinent hx PAST SURGICAL HISTORY Past Surgical History: Pacemaker (BiV [facility] 05/04/2014), CABG (x2 with Zamora Maze procedure 08/14/2012), Total knee replacement (with 5 total revisions), Other (right thoracentesis 09/17/2012 with repeat on 10/10/2012; right thoracotomy with evacuation of right pleural effusion, partial decortication or RLL with TALC and pleurodesis on 12/16/2012; AV node ablation on 05/04/2014) FAMILY HISTORY Family History: Heart Disease (mother and father) SOCIAL HISTORY Smoke: No (very remote) ALCOHOL: none Drugs: None Lives: with Family CURRENT MEDICATIONS CURRENT MEDICATIONS Current Medications Medications (Trade) Dose Ordered Sig/Logan Route PRN Reason Start Time Stop Time Status Last Admin Dose Admin Furosemide (Lasix) 80 mg 1X ONCE IVP 08/28/16 18:00 08/28/16 18:01 DC 08/28/16 19:37 Allopurinol (Zyloprim) 100 mg QHS PO 08/28/16 21:00 08/28/16 21:18 Amoxicillin/ Clavulanate Potassium (Augmentin 875/ 125mg) 1 tab BID PO 08/28/16 21:00 08/29/16 08:59 Aspirin (Children'S Aspirin) 81 mg DAILY PO 08/29/16 09:00 08/29/16 08:59 Guaifenesin (MUCINEX ER with DM) 1 tab QHS PO 08/28/16 21:00 08/28/16 21:19 Simvastatin (Zocor) 20 mg HS PO 08/28/16 21:00 08/28/16 21:18 Warfarin Sodium (Coumadin) 5 mg DAILY16 PO 08/28/16 21:00 08/28/16 21:18 Bumetanide (Bumex) 2 mg DAILYWBKFT PO 08/29/16 08:00 08/29/16 08:59 Vitamin D (Vitamin D3) 3,000 unit DAILY PO 08/29/16 09:00 08/29/16 08:59 Insulin Detemir (Levemir) 20 units QHS SQ 08/28/16 21:00 08/28/16 21:21 Multivitamins/ Calcium (Thera M Plus) 1 tab DAILY PO 08/29/16 09:00 08/29/16 09:00 Potassium Chloride (Klor-Con) 20 meq DAILYWBKFT PO 08/29/16 08:00 08/29/16 08:59 Famotidine (Pepcid) 20 mg BID PO 08/28/16 21:00 08/29/16 08:59 Warfarin Sodium (Coumadin Per Physician) 1 each PRN DAILY PRN MC SEE COMMENTS 08/28/16 20:15 08/29/16 09:51 ALLERGIES ALLERGIES: Coded Allergies: Penicillins (Verified Allergy, Intermediate, 08/28/16) morphine (Verified Allergy, Intermediate, "it does bad things", 06/21/15) NSAIDS (Non-Steroidal Anti-Inflamma (Verified Adverse Reaction, Severe, AVOIDS DUE TO CHRONIC KIDNEY DISEASE, 06/21/15) ROS Review of System 14 point ROS evaluated with pertinent positives noted per HPI PHYSICAL EXAM General: Alert, Oriented X3, Cooperative, No acute distress HEENT: Atraumatic, Mucous membr. moist/pink Lungs: Other (bibasilar crackles) Heart: Regular rate (V paced with underlying AFIB), Other (3/6 systolic murmur to apical) Abdomen: Soft, No tenderness Extremities: No cyanosis, Other (2+ bilateral LE pitting edema) Skin: No breakdown, No significant lesion Neuro: Normal speech, Sensation intact Psych/Mental Status: Mental status NL, Mood NL MUSCULOSKELETAL: Osteoarthritic changes both hands VITALS VITALS Vital Signs Date Time Temp Pulse Resp B/P Pulse Ox O2 Delivery O2 Flow Rate FiO2 08/29/16 10:49 80 18 119/65 Nasal Cannula 08/29/16 08:00 97.6 96 2.0 97.6 LABS Lab: Laboratory Tests Test 08/28/16 16:00 08/28/16 16:20 08/28/16 16:45 08/28/16 18:09 White Blood Count 9.6x10^3/uL (4.0-11.0) Red Blood Count 4.81x10^6/uL (4.30-5.70) Hemoglobin 12.1g/dL (13.0-17.5) Hematocrit 38.3% (39.0-53.0) Mean Corpuscular Volume 80fL (79-100) Mean Corpuscular Hemoglobin 25pg (25-35) Mean Corpuscular Hemoglobin Concent 32g/dL (31-37) Red Cell Distribution Width 18.9% (11.5-14.5) Platelet Count 231x10^3/uL (140-400) Neutrophils (%) (Auto) 77% (31-73) Lymphocytes (%) (Auto) 10% (24-48) Monocytes (%) (Auto) 9% (0-9) Eosinophils (%) (Auto) 3% (0-3) Basophils (%) (Auto) 1% (0-3) Neutrophils # (Auto) 7.4x10^3uL (1.8-7.7) Lymphocytes # (Auto) 0.9x10^3/uL (1.0-4.8) Monocytes # (Auto) 0.9x10^3/uL (0.0-1.1) Eosinophils # (Auto) 0.3x10^3/uL (0.0-0.7) Basophils # (Auto) 0.1x10^3/uL (0.0-0.2) Sodium Level 144mmol/L (136-145) Potassium Level 4.2mmol/L (3.5-5.1) Chloride Level 104mmol/L (98-107) Carbon Dioxide Level 33mmol/L (21-32) Anion Gap 7 (6-14) Blood Urea Nitrogen 33mg/dL (8-26) Creatinine 1.4mg/dL (0.7-1.3) Estimated GFR (Cockcroft-Gault) 49.7 BUN/Creatinine Ratio 24 (6-20) Glucose Level 178mg/dL (70-99) Calcium Level 9.9mg/dL (8.5-10.1) Total Bilirubin 0.8mg/dL (0.2-1.0) Aspartate Amino Transf (AST/SGOT) 40U/L (15-37) Alanine Aminotransferase (ALT/SGPT) 36U/L (16-63) Alkaline Phosphatase 174U/L (46-116) Creatine Kinase 226U/L (39-308) Creatine Kinase MB (Mass) 9.0ng/mL (0.0-3.6) Creatine Kinase MB Relative Index 4.0% (0-4) Troponin I Quantitative 0.043ng/mL (0.000-0.055) BC-Vdb-V-Type Natriuretic Peptide 46132sa/mL (0-124) Total Protein 7.1g/dL (6.4-8.2) Albumin 3.3g/dL (3.4-5.0) Albumin/Globulin Ratio 0.9 (1.0-1.7) Prothrombin Time 25.4SEC (11.7-14.0) Prothromb Time International Ratio 2.5 (0.8-1.1) Urine Collection Type Unknown Urine Color Yellow Urine Clarity Clear Urine pH 5.0 Urine Specific [place] 1.020 Urine Protein 30mg/dL (NEG-TRACE) Urine Glucose (UA) Negativemg/dL (NEG) Urine Ketones (Stick) Negativemg/dL (NEG) Urine Blood Moderate (NEG) Urine Nitrite Negative (NEG) Urine Bilirubin Negative (NEG) Urine Urobilinogen Dipstick 0.2mg/dL (0.2 mg/dL) Urine Leukocyte Esterase Negative (NEG) Urine RBC 3-5/HPF (0-2) Urine WBC 0/HPF (0-4) Urine Squamous Epithelial Cells Occ/LPF Urine Bacteria 0/HPF (0-FEW) Urine Mucus Marked/LPF Glucose (Fingerstick) 140mg/dL (70-99) Test 08/28/16 20:54 08/28/16 21:17 08/29/16 03:55 08/29/16 08:07 Glucose (Fingerstick) 202mg/dL (70-99) 65mg/dL (70-99) Troponin I Quantitative 0.045ng/mL (0.000-0.055) 0.052ng/mL (0.000-0.055) White Blood Count 9.0x10^3/uL (4.0-11.0) Red Blood Count 4.53x10^6/uL (4.30-5.70) Hemoglobin 11.3g/dL (13.0-17.5) Hematocrit 35.2% (39.0-53.0) Mean Corpuscular Volume 78fL (79-100) Mean Corpuscular Hemoglobin 25pg (25-35) Mean Corpuscular Hemoglobin Concent 32g/dL (31-37) Red Cell Distribution Width 18.8% (11.5-14.5) Platelet Count 209x10^3/uL (140-400) Neutrophils (%) (Auto) 73% (31-73) Lymphocytes (%) (Auto) 10% (24-48) Monocytes (%) (Auto) 12% (0-9) Eosinophils (%) (Auto) 4% (0-3) Basophils (%) (Auto) 1% (0-3) Neutrophils # (Auto) 6.6x10^3uL (1.8-7.7) Lymphocytes # (Auto) 0.8x10^3/uL (1.0-4.8) Monocytes # (Auto) 1.1x10^3/uL (0.0-1.1) Eosinophils # (Auto) 0.3x10^3/uL (0.0-0.7) Basophils # (Auto) 0.1x10^3/uL (0.0-0.2) Prothrombin Time 27.8SEC (11.7-14.0) Prothromb Time International Ratio 2.8 (0.8-1.1) Sodium Level 145mmol/L (136-145) Potassium Level 4.3mmol/L (3.5-5.1) Chloride Level 106mmol/L (98-107) Carbon Dioxide Level 33mmol/L (21-32) Anion Gap 6 (6-14) Blood Urea Nitrogen 31mg/dL (8-26) Creatinine 1.5mg/dL (0.7-1.3) Estimated GFR (Cockcroft-Gault) 45.9 Glucose Level 110mg/dL (70-99) Calcium Level 9.2mg/dL (8.5-10.1) Magnesium Level 1.9mg/dL (1.8-2.4) ECHOCARDIOGRAM ECHOCARDIOGRAM <Conclusion> Left ventricle systolic function is mildly to moderately impaired. The Ejection Fraction is 40%. The anterior and anteroseptal joseph are hypokinetic. Transmitral Doppler flow pattern is Grade II-pseudonormal filling dynamics. The left atrium is moderately dilated. The right atrium is moderately dilated. Interatrial septum not well visualized. Doppler and Color-flow revealed mild mitral regurgitation. Doppler and Color Flow revealed moderate tricuspid regurgitation. The PA pressure was estimated at 63 mmHg. The IVC is normal in size and collapses >50% with inspiration. There is no evidence of significant pericardial effusion. DATE: 04/12/141753 ASSESSMENT/PLAN ASSESSMENT/PLAN 1. Acute on chronic combined diastolic/systolic CHF: Appears clinically compensated with good UOP post IV lasix. Multifactorial in etiology namely episodes of hypoglycemic reactions, AFIB RVR with no rate controlling agent, and uncontrolled RAHEEL with pt not utilizing CPAP. Pt will need to be reevaluated for his RAHEEL, avoid strict BG control, will place on Metoprolol for rate control. Restart home bumex at 2 mg daily. Adding zaroxylyn is an option. TTE today 2. CAD: CABG in the past 2012. CP free. Troponin series normal. EKG noted V paced without acute changes. Stable. Continue with secondary prevention. 3. CARGO SERVICE AGENT-P/cardiomyopathy: Last known EF was 40%. Interrogation revealed 91% BiV , battery life of 7-8 yrs, mode VVTR with base rate of 80. Notable episodes of ventricular high rates with last detected in the 180s on 08/21 and noted increased in [employer] since that time. Discussed with [facility] Rep and LV to RV calibrated at 40ms, otherwise normal functioning device. 4. Chronic AFIB: Verified via interrogation. Past Zamora maze procedure and AV shelli ablation. Failed ablation. On coumadin for stroke prevention with INR at 2.8. Will start on low dose metoprolol. 5. HTN: verbalized controlled since his last knee operation in 2015 and not on any antiHTN meds. Currently controlled, low dose metoprolol to commence. 6. HLP: statin, lipid panel 7. DM2: insulin dependent. episodes of hypoglycemia. Defer to PCP 8. CKD3: nephrology following. 9. Anemia of chronic disease: Hgb 11.3 10. RAHEEL: noncompliant with CPAP use. Defer to PCP. Seen by pulmonary as outpt. 11. Chronic augmentin treatment: managed by [facility] MONTE r/t multiple left knee revision and infection. Problems: ANDREIA HAMMOND MD 08/29/16 1625: CARDIAC CONSULT ALLERGIES ALLERGIES: Coded Allergies: Penicillins (Verified Allergy, Intermediate, 08/28/16) morphine (Verified Allergy, Intermediate, "it does bad things", 06/21/15) NSAIDS (Non-Steroidal Anti-Inflamma (Verified Adverse Reaction, Severe, AVOIDS DUE TO CHRONIC KIDNEY DISEASE, 06/21/15) ASSESSMENT/PLAN ASSESSMENT/PLAN Patient seen and examined. Agree with STILL CLEANER's assessment and plan. Continue diuresis for acute on chronic systolic heart failure. 2-D echo showed LVEF 35% . Recent biventricular ICD/CARGO SERVICE AGENT-D interrogation showed normal function. Coronary artery disease status stable. Continue current medical regimen. Thank you for your consultation. Problems: GIRMA OCONNELL APRN Aug 29, 2016 11:53 ANDREIA HAMMOND MD Aug 29, 2016 16:25
[2016-08-29 12:04] LABS: CHOLESTEROL/HDL RATIO 2.6
--- NOTE | 2016-08-29 12:07 | ACF ---
Admission Forms Criteria HEART FAILURE: COMMON COMPLICATIONS Clinical Indications for Inpatient Care (Place 'X' for any and all applicable criteria): Ongoing inpatient care may be indicated for heart failure with ANY ONE of the following (1)(2)(3)(4)(5): [ ]I. Ongoing need for care for primary condition requiring frequent therapy adjustments because of changes in cardiac function (eg, drug dosage changes for drugs that are renally metabolized) [ ]II. New-onset heart failure [ ]III. Heart failure with decreased urine output not responsive to attempts to optimize volume status [ ]IV. Acute cardiac ischemia causing or associated with failure [X]V. Complications of heart failure, including ANY ONE of the following: [ ]a) Pericardial effusion [ ]b) Symptomatic pleural effusion [ ]c) O2 saturation <90% or PO2 < 60 mm Hg (8.0 kPa) on room air or require baseline supplemental O2 [X]d) Tachypnea [X]e) Dyspnea [ ]f) Syncope [ ]g) Change in mental status [ ]h) Acute renal insufficiency that is severe (reduction of more than 50% in estimated glomerular filtration rate from baseline) or progressive reduction of more than 25% in estimated glomerular filtration rate from baseline, with creatinine continuing to rise) [ ]i) Hemodynamic instability [ ]j) Anasarca [ ]k) Clinically significant metabolic abnormalities due to heart failure (eg, new-onset metabolic acidosis) Extended stay beyond goal length of stay for primary condition may be needed until ALL of the following are present(1)(3): [ ]a) Stable and effective diuretic regimen established (or patient on stable dialysis regimen if in chronic renal failure) [ ]b) Breathing comfortably at rest [ ]c) Saturation of arterial oxygen greater than 90% or at acceptable baseline [ ]d) Pulmonary edema absent or improved [ ]e) Hemodynamic stability [ ]f) Volume status acceptable on oral medication [ ]g) Peripheral or sacral edema absent or improved [ ]h) Renal function stable and manageable at a lower level of care [ ]i) Complications (eg, pleural effusion) resolved or manageable at a lower level of care [ ]j) Patient or caregiver has received written discharge instructions or educational material addressing activity level, diet, discharge medications, follow-up appointment, weight monitoring, and what to do if symptoms worsen The original [facility] content created by [employer] has been revised. The portions of the content which have been revised are identified through the use of italic text or in bold, and [facility] has neither reviewed nor approved the modified material.All other unmodified content is copyright [facility]. Please see references footnoted in the original [facility] edition 2016 Admission Criteria Met?: Yes EMA SENIOR Aug 29, 2016 12:07
--- NOTE | 2016-08-29 13:09 | PDOC ---
PROGRESS NOTES Chief Complaint Chief Complaint 1. Acute on chronic congestive heart failure. 2. Atrial fibrillation, currently rate controlled. 3. Type 2 diabetes mellitus with mild hyperglycemia. 4. Hypertension. 5. Arthritis. History of Present Illness History of Present Illness LE edema, s/p 80 of IV Lasix bumex and lasix Warfarin at goal is 2-3 for atrial fibrillation. Cardiology and renal following repeat labs in AM dietary had long discussion on sodium intake and CV diet, w/ ADA restrictions Vitals Vitals Vital Signs Date Time Temp Pulse Resp B/P Pulse Ox O2 Delivery O2 Flow Rate FiO2 08/29/16 10:49 80 18 119/65 Nasal Cannula 08/29/16 08:00 97.6 96 2.0 97.6 Physical Exam General: Alert, Oriented X3, Cooperative, No acute distress Heart: Regular rate Lungs: Clear, Other Abdomen: Soft, No tenderness Extremities: No cyanosis, Other (2+ bilateral LE pitting edema) Skin: No breakdown, No significant lesion Labs LABS Laboratory Tests Test 08/28/16 16:00 08/28/16 16:20 08/28/16 16:45 08/28/16 18:09 White Blood Count 9.6x10^3/uL (4.0-11.0) Red Blood Count 4.81x10^6/uL (4.30-5.70) Hemoglobin 12.1g/dL (13.0-17.5) Hematocrit 38.3% (39.0-53.0) Mean Corpuscular Volume 80fL (79-100) Mean Corpuscular Hemoglobin 25pg (25-35) Mean Corpuscular Hemoglobin Concent 32g/dL (31-37) Red Cell Distribution Width 18.9% (11.5-14.5) Platelet Count 231x10^3/uL (140-400) Neutrophils (%) (Auto) 77% (31-73) Lymphocytes (%) (Auto) 10% (24-48) Monocytes (%) (Auto) 9% (0-9) Eosinophils (%) (Auto) 3% (0-3) Basophils (%) (Auto) 1% (0-3) Neutrophils # (Auto) 7.4x10^3uL (1.8-7.7) Lymphocytes # (Auto) 0.9x10^3/uL (1.0-4.8) Monocytes # (Auto) 0.9x10^3/uL (0.0-1.1) Eosinophils # (Auto) 0.3x10^3/uL (0.0-0.7) Basophils # (Auto) 0.1x10^3/uL (0.0-0.2) Sodium Level 144mmol/L (136-145) Potassium Level 4.2mmol/L (3.5-5.1) Chloride Level 104mmol/L (98-107) Carbon Dioxide Level 33mmol/L (21-32) Anion Gap 7 (6-14) Blood Urea Nitrogen 33mg/dL (8-26) Creatinine 1.4mg/dL (0.7-1.3) Estimated GFR (Cockcroft-Gault) 49.7 BUN/Creatinine Ratio 24 (6-20) Glucose Level 178mg/dL (70-99) Calcium Level 9.9mg/dL (8.5-10.1) Total Bilirubin 0.8mg/dL (0.2-1.0) Aspartate Amino Transf (AST/SGOT) 40U/L (15-37) Alanine Aminotransferase (ALT/SGPT) 36U/L (16-63) Alkaline Phosphatase 174U/L (46-116) Creatine Kinase 226U/L (39-308) Creatine Kinase MB (Mass) 9.0ng/mL (0.0-3.6) Creatine Kinase MB Relative Index 4.0% (0-4) Troponin I Quantitative 0.043ng/mL (0.000-0.055) PM-Coz-A-Type Natriuretic Peptide 12875xg/mL (0-124) Total Protein 7.1g/dL (6.4-8.2) Albumin 3.3g/dL (3.4-5.0) Albumin/Globulin Ratio 0.9 (1.0-1.7) Prothrombin Time 25.4SEC (11.7-14.0) Prothromb Time International Ratio 2.5 (0.8-1.1) Urine Collection Type Unknown Urine Color Yellow Urine Clarity Clear Urine pH 5.0 Urine Specific [place] 1.020 Urine Protein 30mg/dL (NEG-TRACE) Urine Glucose (UA) Negativemg/dL (NEG) Urine Ketones (Stick) Negativemg/dL (NEG) Urine Blood Moderate (NEG) Urine Nitrite Negative (NEG) Urine Bilirubin Negative (NEG) Urine Urobilinogen Dipstick 0.2mg/dL (0.2 mg/dL) Urine Leukocyte Esterase Negative (NEG) Urine RBC 3-5/HPF (0-2) Urine WBC 0/HPF (0-4) Urine Squamous Epithelial Cells Occ/LPF Urine Bacteria 0/HPF (0-FEW) Urine Mucus Marked/LPF Glucose (Fingerstick) 140mg/dL (70-99) Test 08/28/16 20:54 08/28/16 21:17 08/29/16 03:55 08/29/16 08:07 Glucose (Fingerstick) 202mg/dL (70-99) 65mg/dL (70-99) Troponin I Quantitative 0.045ng/mL (0.000-0.055) 0.052ng/mL (0.000-0.055) White Blood Count 9.0x10^3/uL (4.0-11.0) Red Blood Count 4.53x10^6/uL (4.30-5.70) Hemoglobin 11.3g/dL (13.0-17.5) Hematocrit 35.2% (39.0-53.0) Mean Corpuscular Volume 78fL (79-100) Mean Corpuscular Hemoglobin 25pg (25-35) Mean Corpuscular Hemoglobin Concent 32g/dL (31-37) Red Cell Distribution Width 18.8% (11.5-14.5) Platelet Count 209x10^3/uL (140-400) Neutrophils (%) (Auto) 73% (31-73) Lymphocytes (%) (Auto) 10% (24-48) Monocytes (%) (Auto) 12% (0-9) Eosinophils (%) (Auto) 4% (0-3) Basophils (%) (Auto) 1% (0-3) Neutrophils # (Auto) 6.6x10^3uL (1.8-7.7) Lymphocytes # (Auto) 0.8x10^3/uL (1.0-4.8) Monocytes # (Auto) 1.1x10^3/uL (0.0-1.1) Eosinophils # (Auto) 0.3x10^3/uL (0.0-0.7) Basophils # (Auto) 0.1x10^3/uL (0.0-0.2) Prothrombin Time 27.8SEC (11.7-14.0) Prothromb Time International Ratio 2.8 (0.8-1.1) Sodium Level 145mmol/L (136-145) Potassium Level 4.3mmol/L (3.5-5.1) Chloride Level 106mmol/L (98-107) Carbon Dioxide Level 33mmol/L (21-32) Anion Gap 6 (6-14) Blood Urea Nitrogen 31mg/dL (8-26) Creatinine 1.5mg/dL (0.7-1.3) Estimated GFR (Cockcroft-Gault) 45.9 Glucose Level 110mg/dL (70-99) Calcium Level 9.2mg/dL (8.5-10.1) Magnesium Level 1.9mg/dL (1.8-2.4) Triglycerides Level 52mg/dL (0-150) Cholesterol Level 86mg/dL (0-200) LDL Cholesterol, Calculated 43mg/dL (0-100) VLDL Cholesterol, Calculated 10mg/dL (0-40) HDL Cholesterol 33mg/dL (40-60) Cholesterol/HDL Ratio 2.6 Test 08/29/16 11:38 Glucose (Fingerstick) 124mg/dL (70-99) Review of Systems Review of Systems better today ambulate with walker Assessment and Plan Assessmemt and Plan Problems Medical Problems: (1) Acute on chronic congestive heart failure Status: Acute (2) Chronic renal insufficiency Status: Acute Problems: Comment Review of Relevant I have reviewed the following items liz (where applicable) has been applied. Labs Laboratory Tests Test 08/28/16 16:00 08/28/16 16:20 08/28/16 16:45 08/28/16 18:09 White Blood Count 9.6x10^3/uL (4.0-11.0) Red Blood Count 4.81x10^6/uL (4.30-5.70) Hemoglobin 12.1g/dL (13.0-17.5) Hematocrit 38.3% (39.0-53.0) Mean Corpuscular Volume 80fL (79-100) Mean Corpuscular Hemoglobin 25pg (25-35) Mean Corpuscular Hemoglobin Concent 32g/dL (31-37) Red Cell Distribution Width 18.9% (11.5-14.5) Platelet Count 231x10^3/uL (140-400) Neutrophils (%) (Auto) 77% (31-73) Lymphocytes (%) (Auto) 10% (24-48) Monocytes (%) (Auto) 9% (0-9) Eosinophils (%) (Auto) 3% (0-3) Basophils (%) (Auto) 1% (0-3) Neutrophils # (Auto) 7.4x10^3uL (1.8-7.7) Lymphocytes # (Auto) 0.9x10^3/uL (1.0-4.8) Monocytes # (Auto) 0.9x10^3/uL (0.0-1.1) Eosinophils # (Auto) 0.3x10^3/uL (0.0-0.7) Basophils # (Auto) 0.1x10^3/uL (0.0-0.2) Sodium Level 144mmol/L (136-145) Potassium Level 4.2mmol/L (3.5-5.1) Chloride Level 104mmol/L (98-107) Carbon Dioxide Level 33mmol/L (21-32) Anion Gap 7 (6-14) Blood Urea Nitrogen 33mg/dL (8-26) Creatinine 1.4mg/dL (0.7-1.3) Estimated GFR (Cockcroft-Gault) 49.7 BUN/Creatinine Ratio 24 (6-20) Glucose Level 178mg/dL (70-99) Calcium Level 9.9mg/dL (8.5-10.1) Total Bilirubin 0.8mg/dL (0.2-1.0) Aspartate Amino Transf (AST/SGOT) 40U/L (15-37) Alanine Aminotransferase (ALT/SGPT) 36U/L (16-63) Alkaline Phosphatase 174U/L (46-116) Creatine Kinase 226U/L (39-308) Creatine Kinase MB (Mass) 9.0ng/mL (0.0-3.6) Creatine Kinase MB Relative Index 4.0% (0-4) Troponin I Quantitative 0.043ng/mL (0.000-0.055) YE-Apk-G-Type Natriuretic Peptide 63981gv/mL (0-124) Total Protein 7.1g/dL (6.4-8.2) Albumin 3.3g/dL (3.4-5.0) Albumin/Globulin Ratio 0.9 (1.0-1.7) Prothrombin Time 25.4SEC (11.7-14.0) Prothromb Time International Ratio 2.5 (0.8-1.1) Urine Collection Type Unknown Urine Color Yellow Urine Clarity Clear Urine pH 5.0 Urine Specific [place] 1.020 Urine Protein 30mg/dL (NEG-TRACE) Urine Glucose (UA) Negativemg/dL (NEG) Urine Ketones (Stick) Negativemg/dL (NEG) Urine Blood Moderate (NEG) Urine Nitrite Negative (NEG) Urine Bilirubin Negative (NEG) Urine Urobilinogen Dipstick 0.2mg/dL (0.2 mg/dL) Urine Leukocyte Esterase Negative (NEG) Urine RBC 3-5/HPF (0-2) Urine WBC 0/HPF (0-4) Urine Squamous Epithelial Cells Occ/LPF Urine Bacteria 0/HPF (0-FEW) Urine Mucus Marked/LPF Glucose (Fingerstick) 140mg/dL (70-99) Test 08/28/16 20:54 08/28/16 21:17 08/29/16 03:55 08/29/16 08:07 Glucose (Fingerstick) 202mg/dL (70-99) 65mg/dL (70-99) Troponin I Quantitative 0.045ng/mL (0.000-0.055) 0.052ng/mL (0.000-0.055) White Blood Count 9.0x10^3/uL (4.0-11.0) Red Blood Count 4.53x10^6/uL (4.30-5.70) Hemoglobin 11.3g/dL (13.0-17.5) Hematocrit 35.2% (39.0-53.0) Mean Corpuscular Volume 78fL (79-100) Mean Corpuscular Hemoglobin 25pg (25-35) Mean Corpuscular Hemoglobin Concent 32g/dL (31-37) Red Cell Distribution Width 18.8% (11.5-14.5) Platelet Count 209x10^3/uL (140-400) Neutrophils (%) (Auto) 73% (31-73) Lymphocytes (%) (Auto) 10% (24-48) Monocytes (%) (Auto) 12% (0-9) Eosinophils (%) (Auto) 4% (0-3) Basophils (%) (Auto) 1% (0-3) Neutrophils # (Auto) 6.6x10^3uL (1.8-7.7) Lymphocytes # (Auto) 0.8x10^3/uL (1.0-4.8) Monocytes # (Auto) 1.1x10^3/uL (0.0-1.1) Eosinophils # (Auto) 0.3x10^3/uL (0.0-0.7) Basophils # (Auto) 0.1x10^3/uL (0.0-0.2) Prothrombin Time 27.8SEC (11.7-14.0) Prothromb Time International Ratio 2.8 (0.8-1.1) Sodium Level 145mmol/L (136-145) Potassium Level 4.3mmol/L (3.5-5.1) Chloride Level 106mmol/L (98-107) Carbon Dioxide Level 33mmol/L (21-32) Anion Gap 6 (6-14) Blood Urea Nitrogen 31mg/dL (8-26) Creatinine 1.5mg/dL (0.7-1.3) Estimated GFR (Cockcroft-Gault) 45.9 Glucose Level 110mg/dL (70-99) Calcium Level 9.2mg/dL (8.5-10.1) Magnesium Level 1.9mg/dL (1.8-2.4) Triglycerides Level 52mg/dL (0-150) Cholesterol Level 86mg/dL (0-200) LDL Cholesterol, Calculated 43mg/dL (0-100) VLDL Cholesterol, Calculated 10mg/dL (0-40) HDL Cholesterol 33mg/dL (40-60) Cholesterol/HDL Ratio 2.6 Test 08/29/16 11:38 Glucose (Fingerstick) 124mg/dL (70-99) Laboratory Tests Test 08/28/16 16:00 08/28/16 16:20 08/28/16 16:45 08/28/16 18:09 White Blood Count 9.6x10^3/uL (4.0-11.0) Red Blood Count 4.81x10^6/uL (4.30-5.70) Hemoglobin 12.1g/dL (13.0-17.5) Hematocrit 38.3% (39.0-53.0) Mean Corpuscular Volume 80fL (79-100) Mean Corpuscular Hemoglobin 25pg (25-35) Mean Corpuscular Hemoglobin Concent 32g/dL (31-37) Red Cell Distribution Width 18.9% (11.5-14.5) Platelet Count 231x10^3/uL (140-400) Neutrophils (%) (Auto) 77% (31-73) Lymphocytes (%) (Auto) 10% (24-48) Monocytes (%) (Auto) 9% (0-9) Eosinophils (%) (Auto) 3% (0-3) Basophils (%) (Auto) 1% (0-3) Neutrophils # (Auto) 7.4x10^3uL (1.8-7.7) Lymphocytes # (Auto) 0.9x10^3/uL (1.0-4.8) Monocytes # (Auto) 0.9x10^3/uL (0.0-1.1) Eosinophils # (Auto) 0.3x10^3/uL (0.0-0.7) Basophils # (Auto) 0.1x10^3/uL (0.0-0.2) Sodium Level 144mmol/L (136-145) Potassium Level 4.2mmol/L (3.5-5.1) Chloride Level 104mmol/L (98-107) Carbon Dioxide Level 33mmol/L (21-32) Anion Gap 7 (6-14) Blood Urea Nitrogen 33mg/dL (8-26) Creatinine 1.4mg/dL (0.7-1.3) Estimated GFR (Cockcroft-Gault) 49.7 BUN/Creatinine Ratio 24 (6-20) Glucose Level 178mg/dL (70-99) Calcium Level 9.9mg/dL (8.5-10.1) Total Bilirubin 0.8mg/dL (0.2-1.0) Aspartate Amino Transf (AST/SGOT) 40U/L (15-37) Alanine Aminotransferase (ALT/SGPT) 36U/L (16-63) Alkaline Phosphatase 174U/L (46-116) Creatine Kinase 226U/L (39-308) Creatine Kinase MB (Mass) 9.0ng/mL (0.0-3.6) Creatine Kinase MB Relative Index 4.0% (0-4) Troponin I Quantitative 0.043ng/mL (0.000-0.055) MX-Wrr-Z-Type Natriuretic Peptide 90624oh/mL (0-124) Total Protein 7.1g/dL (6.4-8.2) Albumin 3.3g/dL (3.4-5.0) Albumin/Globulin Ratio 0.9 (1.0-1.7) Prothrombin Time 25.4SEC (11.7-14.0) Prothromb Time International Ratio 2.5 (0.8-1.1) Urine Collection Type Unknown Urine Color Yellow Urine Clarity Clear Urine pH 5.0 Urine Specific [place] 1.020 Urine Protein 30mg/dL (NEG-TRACE) Urine Glucose (UA) Negativemg/dL (NEG) Urine Ketones (Stick) Negativemg/dL (NEG) Urine Blood Moderate (NEG) Urine Nitrite Negative (NEG) Urine Bilirubin Negative (NEG) Urine Urobilinogen Dipstick 0.2mg/dL (0.2 mg/dL) Urine Leukocyte Esterase Negative (NEG) Urine RBC 3-5/HPF (0-2) Urine WBC 0/HPF (0-4) Urine Squamous Epithelial Cells Occ/LPF Urine Bacteria 0/HPF (0-FEW) Urine Mucus Marked/LPF Glucose (Fingerstick) 140mg/dL (70-99) Test 08/28/16 20:54 08/28/16 21:17 08/29/16 03:55 08/29/16 08:07 Glucose (Fingerstick) 202mg/dL (70-99) 65mg/dL (70-99) Troponin I Quantitative 0.045ng/mL (0.000-0.055) 0.052ng/mL (0.000-0.055) White Blood Count 9.0x10^3/uL (4.0-11.0) Red Blood Count 4.53x10^6/uL (4.30-5.70) Hemoglobin 11.3g/dL (13.0-17.5) Hematocrit 35.2% (39.0-53.0) Mean Corpuscular Volume 78fL (79-100) Mean Corpuscular Hemoglobin 25pg (25-35) Mean Corpuscular Hemoglobin Concent 32g/dL (31-37) Red Cell Distribution Width 18.8% (11.5-14.5) Platelet Count 209x10^3/uL (140-400) Neutrophils (%) (Auto) 73% (31-73) Lymphocytes (%) (Auto) 10% (24-48) Monocytes (%) (Auto) 12% (0-9) Eosinophils (%) (Auto) 4% (0-3) Basophils (%) (Auto) 1% (0-3) Neutrophils # (Auto) 6.6x10^3uL (1.8-7.7) Lymphocytes # (Auto) 0.8x10^3/uL (1.0-4.8) Monocytes # (Auto) 1.1x10^3/uL (0.0-1.1) Eosinophils # (Auto) 0.3x10^3/uL (0.0-0.7) Basophils # (Auto) 0.1x10^3/uL (0.0-0.2) Prothrombin Time 27.8SEC (11.7-14.0) Prothromb Time International Ratio 2.8 (0.8-1.1) Sodium Level 145mmol/L (136-145) Potassium Level 4.3mmol/L (3.5-5.1) Chloride Level 106mmol/L (98-107) Carbon Dioxide Level 33mmol/L (21-32) Anion Gap 6 (6-14) Blood Urea Nitrogen 31mg/dL (8-26) Creatinine 1.5mg/dL (0.7-1.3) Estimated GFR (Cockcroft-Gault) 45.9 Glucose Level 110mg/dL (70-99) Calcium Level 9.2mg/dL (8.5-10.1) Magnesium Level 1.9mg/dL (1.8-2.4) Triglycerides Level 52mg/dL (0-150) Cholesterol Level 86mg/dL (0-200) LDL Cholesterol, Calculated 43mg/dL (0-100) VLDL Cholesterol, Calculated 10mg/dL (0-40) HDL Cholesterol 33mg/dL (40-60) Cholesterol/HDL Ratio 2.6 Test 08/29/16 11:38 Glucose (Fingerstick) 124mg/dL (70-99) Medications Current Medications Ondansetron HCl (Zofran) 4 mg PRN Q8HRS PRN IV NAUSEA/VOMITING; Start 08/28/16 at 17:30; Stop 08/29/16 at 17:29 Fentanyl Citrate 50 mcg 50 mcg PRN Q2HR PRN IV PAIN; Start 08/28/16 at 17:30; Stop 08/29/16 at 17:29 Sodium Chloride (Iv Sodium Chloride 0.9% 1000ml Bag) 1,000 ml @ 30 mls/hr Q24H IV ; Start 08/28/16 at 17:16; Stop 08/28/16 at 21:33; Status DC Acetaminophen (Tylenol) 650 mg PRN Q4HRS PRN PO FEVER; Start 08/28/16 at 17:30 ; Stop 08/29/16 at 17:29 Furosemide (Lasix) 80 mg 1X ONCE IVP Last administered on 08/28/16 19:37; Start 08/28/16 at 18:00; Stop 08/28/16 at 18:01; Status DC Insulin Aspart (Novolog) 0-9 UNITS TIDWMEALS SQ ; Start 08/29/16 at 08:00 Dextrose 12.5 gm PRN Q15MIN PRN IV SEE COMMENTS; Start 08/28/16 at 19:00 Acetaminophen (Tylenol) 500 mg PRN Q12HR PRN PO PAIN; Start 08/28/16 at 19:30 Allopurinol (Zyloprim) 100 mg QHS PO Last administered on 08/28/16 21:18; Start 08/28/16 at 21:00 Amoxicillin/ Clavulanate Potassium (Augmentin 875/ 125mg) 1 tab BID PO Last administered on 08/29/16 08:59; Start 08/28/16 at 21:00 Aspirin (Children'S Aspirin) 81 mg DAILY PO Last administered on 08/29/16 08: 59; Start 08/29/16 at 09:00 Guaifenesin (MUCINEX ER with DM) 1 tab QHS PO Last administered on 08/28/16 21 :19; Start 08/28/16 at 21:00 Oxycodone/ Acetaminophen (Percocet 5/325) 1 tab PRN Q4HRS PRN PO PAIN; Start at 19:30 Simvastatin (Zocor) 20 mg HS PO Last administered on 08/28/16 21:18; Start at 21:00 Warfarin Sodium (Coumadin) 2.5 mg QSU PO ; Start 09/02/16 at 16:00 Warfarin Sodium (Coumadin) 5 mg DAILY16 PO Last administered on 08/28/16 21:18 ; Start 08/28/16 at 21:00 Non-Formulary Medication 1 tab QFR PO ; Start 08/31/16 at 16:00; Status UNV Bumetanide (Bumex) 2 mg DAILYWBKFT PO Last administered on 08/29/16 08:59; Start 08/29/16 at 08:00 Vitamin D (Vitamin D3) 3,000 unit DAILY PO Last administered on 08/29/16 08:59 ; Start 08/29/16 at 09:00 Insulin Detemir (Levemir) 20 units QHS SQ Last administered on 08/28/16 21:21 ; Start 08/28/16 at 21:00 Multivitamins/ Calcium (Thera M Plus) 1 tab DAILY PO Last administered on 09:00; Start 08/29/16 at 09:00 Potassium Chloride (Klor-Con) 20 meq DAILYWBKFT PO Last administered on 08:59; Start 08/29/16 at 08:00 Famotidine (Pepcid) 20 mg BID PO Last administered on 08/29/16 08:59; Start at 21:00 Linagliptin (Tradjenta) 5 mg DAILY PO ; Start 08/29/16 at 09:00 Warfarin Sodium (Coumadin Per Physician) 1 each PRN DAILY PRN MC SEE COMMENTS Last administered on 08/29/16 09:51; Start 08/28/16 at 20:15 Metoprolol Tartrate (Lopressor) 12.5 mg BID PO ; Start 08/29/16 at 12:00 Active Scripts Active Reported Multi Vitamin Daily (Multivitamin) 1 Each Tablet 1 Each PO DAILY Vitamin D (Cholecalciferol (Vitamin D3)) 2,000 Unit Tablet 3,000 Unit PO DAILY Tylenol Extra Strength (Acetaminophen) 500 Mg Tablet 500 Mg PO PRN Q12HR PRN Augmentin 875-125 Tablet (Amoxicillin/Potassium Clav) 1 Each Tablet 1 Tab PO BID Mucinex Dm Er 600-30 Mg Tablet (Guaifenesin/Dextromethorphan) 1 Each Tab.er.12h 20-400 Each PO QHS Warfarin Sodium 2.5 Mg Tablet 2.5 Mg PO QSU Warfarin Sodium 5 Mg Tablet 5 Mg PO DAILY Potassium Chloride 20 Meq Tablet.er 20 Meq PO DAILY Alendronate Sodium 70 Mg Tablet 1 Tab PO QFR Percocet 5-325 Mg Tablet (Oxycodone/Acetaminophen) 1 Each Tablet 1-2 Tab PO Q4- 6HRS Levemir (Insulin Detemir) 100 Unit/1 Ml Vial 20 Unit SQ HS LAST DOSE GIVEN: DATE:06-23-15 TIME:9:00 p.m. NEXT DOSE DUE: DATE:06-24-15 TIME:9:00 p.m. Simvastatin 20 Mg Tablet 20 Mg PO HS LAST DOSE GIVEN: DATE:06-23-15 TIME:9:00 p.m. NEXT DOSE DUE: DATE:06-24-15 TIME:9:00 p.m. Bumetanide 2 Mg Tablet 2 Mg PO DAILYWBKFT LAST DOSE GIVEN: DATE:06-24-15 TIME:8:30 a.m. NEXT DOSE DUE: DATE:06-25-15 TIME:8:30 a.m. Aspirin 81 Mg Tab.chew 81 Mg PO LAST DOSE GIVEN: DATE:06-24-15 TIME:8:30 a.m. NEXT DOSE DUE: DATE:06-25-15 TIME:8:30 a.m. Januvia (Sitagliptin Phosphate) 100 Mg Tablet 100 Mg PO DAILYWBKFT Not taken while in hosp. May resume at home as directed Allopurinol 100 Mg Tablet 100 Mg PO QHS LAST DOSE GIVEN: DATE: 06/23 TIME: 5 pm NEXT DOSE DUE: DATE: 06/24 TIME: 5 pm Ranitidine Hcl 150 Mg Tablet 150 Mg PO BIDAC LAST DOSE GIVEN: DATE:06-24-15 TIME:8:30 a.m. NEXT DOSE DUE: DATE:06-24-15 TIME: 5:00 p.m. Vitals/I & O Vital Sign - Last 24 Hours 08/28/16 08/28/16 08/28/16 08/28/16 14:56 15:14 16:14 17:14 Temp 98.5 98.5 Pulse 80 80 80 80 Resp 40 36 30 24 B/P 133/69 146/86 140/88 146/90 Pulse Ox 92 91 91 91 O2 Delivery Room Air Room Air Room Air Room Air 08/28/16 08/28/16 08/28/16 08/28/16 18:00 19:05 19:38 19:55 Temp 98.5 98.5 98.5 98.5 Pulse 83 85 Resp 18 18 B/P 129/76 130/80 Pulse Ox 95 96 O2 Delivery Room Air Room Air Room Air Room Air 08/28/16 08/29/16 08/29/16 08/29/16 23:00 03:38 08:00 08:00 Temp 98.3 98.5 97.6 98.3 98.5 97.6 Pulse 81 85 81 Resp 18 18 18 B/P 151/81 148/86 129/74 Pulse Ox 92 93 96 O2 Delivery Room Air Nasal Cannula Nasal Cannula Room Air O2 Flow Rate 2.0 2.0 08/29/16 10:49 Pulse 80 Resp 18 B/P 119/65 O2 Delivery Nasal Cannula Intake and Output 08/28/16 08/28/16 08/29/16 15:00 23:00 07:00 Intake Total 900 ml Output Total 420 ml 825 ml Balance -420 ml 75 ml VARGHESE KUMAR MD Aug 29, 2016 13:09
[2016-08-29] MEDS: METOPROLOL TART IMMED RELEASE 25 MG TABLET PO SCH ×2 (13:37→21:28)
[2016-08-29] MEDS: LINAGLIPTIN 5 MG TABLET PO SCH (13:37)
--- NOTE | 2016-08-29 13:37 | CARD ---
APPROVED REPORT EXAM: Two-dimensional and M-mode echocardiogram with Doppler and color Doppler. Other Information Quality : GoodHR: 87bpm Rhythm : Atrial Fibrillation, Pacemaker INDICATION Congestive Heart Failure 2D DIMENSIONS RVDd4.2 (2.9-3.5cm)Left Atrium(2D)4.2 (1.6-4.0cm) IVSd1.0 (0.7-1.1cm)Aortic Root(2D)2.8 (2.0-3.7cm) LVDd5.8 (3.9-5.9cm)LVOT Diameter2.1 (1.8-2.4cm) PWd0.9 (0.7-1.1cm)LVDs4.8 (2.5-4.0cm) FS (%) 16.9 %SV57.0 ml LVEF(%)34.9 (>50%) Aortic Valve AoV Peak Adalid.162.3cm/sAoV VTI21.7cm AO Peak GR.10.5mmHgLVOT Peak Adalid.65.2cm/s LVOT VTI 8.80cmAO Mean GR.6mmHg KAY (VMAX)1.88oa4ZCY (VTI)1.43cm2 Mitral Valve MV E Aenvglpw170.6cm/sMV E Peak Gr.52mmHg MV DECEL [id number] E Mean Gr.3mmHg MV [id number] (PHT)4.02cm2 TDI E/Lateral E'16.1E/Medial E'13.4 Pulmonary Valve PV Peak Klognbgp52.6cm/sPV Peak Grad.2mmHg RVOT VTI14.1cm Tricuspid Valve TR P. Coxjqsij558ne/sRAP [id number] TR Peak Gr.11fkBfGBVM20paAk LEFT VENTRICLE The left ventricle is normal size. There is normal left ventricular wall thickness. Left ventricle sy stolic function is moderately impaired. The Ejection Fraction is 35%. 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 Unable to assess diastolic function due to afib. RIGHT VENTRICLE The right ventricle is mildly dilated. The right ventricular systolic function is normal. There is a pacemaker lead in the right ventricle. ATRIA The left atrium is mildly dilated. The right atrium is mildly dilated. The interatrial septum is inta ct with no evidence for an atrial septal defect or patent foramen ovale as noted on 2-D or Doppler im aging. AORTIC VALVE The aortic valve is mildly to moderately calcified. The aortic valve is trileaflet. Doppler and Color Flow revealed no significant aortic regurgitation. There is no significant aortic valvular stenosis. MITRAL VALVE Mitral annular calcification is mild. The mitral valve leaflets are thickened. There is no evidence o f mitral valve prolapse. There is no mitral valve stenosis. Doppler and Color Flow revealed moderate mitral regurgitation. TRICUSPID VALVE The tricuspid valve is normal in structure and function. Doppler and Color Flow revealed moderate tri cuspid regurgitation. There is moderate pulmonary hypertension. The PA pressure was estimated at 52 m mHg. There is no tricuspid valve stenosis. PULMONIC VALVE The pulmonic valve is not well visualized. Doppler and Color Flow revealed no pulmonic valvular regur gitation. There is no pulmonic valvular stenosis. GREAT VESSELS The aortic root is normal in size. The ascending aorta is normal in size. The IVC is normal in size a nd collapses >50% with inspiration. PERICARDIAL EFFUSION There is no evidence of significant pericardial effusion. Critical Notification Critical Value: No <Conclusion> Left ventricle systolic function is moderately impaired. The Ejection Fraction is 35%. 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 Moderate mitral regurgitation. Moderate tricuspid regurgitation. There is moderate pulmonary hypertension. The PA pressure was estimated at 52 mmHg. There is no evidence of significant pericardial effusion.
[2016-08-29 15:12] VITALS: BP 138/77
[2016-08-29] MEDS: WARFARIN 5 MG TABLET. PO SCH (16:37)
[2016-08-29 19:00] VITALS: BP 144/71
[2016-08-29] MEDS: ALLOPURINOL 100 MG TABLET. PO SCH (21:27)
[2016-08-29] MEDS: GUAIFENESIN DM 600/30MG TAB.ER.12H. PO SCH (21:27)
[2016-08-29] MEDS: SIMVASTATIN 20 MG TABLET PO SCH (21:27)
[2016-08-29] MEDS: INSULIN DETEMIR 300 UNITS/3 ML INSULN.PEN. SQ SCH (21:31)
[2016-08-29 23:00] VITALS: BP 120/80
[2016-08-30 03:00] VITALS: BP 93/51
[2016-08-30 05:58] LABS: CALCIUM 9.3 mg/dL (8.5-10.1); CREATININE 1.6 mg/dL (0.7-1.3); GFR 42.6
[2016-08-30 07:22] VITALS: BP 126/69
[2016-08-30] MEDS: INSULIN ASPART 300 UNITS/3 ML INSULN.PEN SQ SCH ×3 (07:45→17:00)
[2016-08-30] MEDS: BUMETANIDE 1 MG TABLET PO SCH (09:17)
[2016-08-30] MEDS: ASPIRIN 81 MG TAB.CHEW PO SCH (09:18)
[2016-08-30] MEDS: FAMOTIDINE 20 MG TABLET. PO SCH ×2 (09:18→21:01)
[2016-08-30] MEDS: CHOLECALCIFEROL (VITAMIN D3) 1,000 UNIT TABLET PO SCH (09:18)
[2016-08-30] MEDS: MULTIVITAMIN with MINERAL TABLET. PO SCH (09:18)
[2016-08-30] MEDS: LINAGLIPTIN 5 MG TABLET PO SCH (09:18)
[2016-08-30] MEDS: AMOXICILLIN/K CLAV 875/125MG TABLET. PO SCH ×2 (09:18→21:01)
[2016-08-30] MEDS: POTASSIUM CHLORIDE 20 MEQ TABLET.ER. PO SCH (09:18)
[2016-08-30] MEDS: METOPROLOL TART IMMED RELEASE 25 MG TABLET PO SCH ×2 (09:19→21:02)
--- NOTE | 2016-08-30 10:52 | PDOC ---
Renal-Progress Notes Subjective Notes Notes NONE History of Present Illness Hx of present illness STABLE Vitals Vitals Vital Signs Date Time Temp Pulse Resp B/P Pulse Ox O2 Delivery O2 Flow Rate FiO2 08/30/16 09:19 82 126/69 08/30/16 07:22 97.7 20 91 Nasal Cannula 2.0 97.7 Weight Weight [ ] I.O. Intake and Output Intake and Output 08/30/16 07:00 Intake Total 1400 ml Output Total 1150 ml Balance 250 ml Intake Oral 1400 ml Output Urine Total 1150 ml # Voids 1 Labs Labs Laboratory Tests Test 08/29/16 11:38 08/29/16 16:55 08/29/16 20:49 08/30/16 04:40 Glucose (Fingerstick) 124mg/dL (70-99) 153mg/dL (70-99) 194mg/dL (70-99) Sodium Level 144mmol/L (136-145) Potassium Level 4.0mmol/L (3.5-5.1) Chloride Level 105mmol/L (98-107) Carbon Dioxide Level 32mmol/L (21-32) Anion Gap 7 (6-14) Blood Urea Nitrogen 33mg/dL (8-26) Creatinine 1.6mg/dL (0.7-1.3) Estimated GFR (Cockcroft-Gault) 42.6 Glucose Level 75mg/dL (70-99) Calcium Level 9.3mg/dL (8.5-10.1) Test 08/30/16 07:25 08/30/16 08:00 Glucose (Fingerstick) 53mg/dL (70-99) 78mg/dL (70-99) Review of Systems Constitutional: yes: alert, oriented, weakness Ears/Nose/Throat: Yes: no symptom reported Eyes: Yes: no symptom reported Pulmonary: Yes no symptom reported Cardiovascular: Yes no symptom reported Gastrointestional: Yes: constipation Genitourinary: Yes: no symptom reported Musculoskeletal: Yes: muscle stiffness Skin: Yes color change Physical Exam General Appearance: no apparent distress Skin: warm Respiratory: bilateral CTA Heart: S1S2, RRR Extremities: pulses present, edema Neurology: alert, oriented Musculoskeletal: Other (knee infection) Assessment Assessment IMP CKD STAGE 3 WITH CR AT BASELINE DM II LE WOUNDS CHF-COMPENSATED EDEMA WITH AN INFLAMMATORY COMPONENT PLAN CONT WITH DIURETICS WOUND CARE AND ANTIBIOTICS KOLB,ELVA S MD Aug 30, 2016 10:52
[2016-08-30] MEDS ORDERED: FUROSEMIDE 40 MG/4 ML VIAL IVP ONE (11:15)
[2016-08-30] MEDS ORDERED: FUROSEMIDE 100 MG/10 ML VIAL IVP ONE (11:15)
--- NOTE | 2016-08-30 11:19 | PDOC ---
PROGRESS NOTES Chief Complaint Chief Complaint 1. Acute on chronic congestive heart failure. 2. Atrial fibrillation, currently rate controlled. 3. Type 2 diabetes mellitus with mild hyperglycemia. 4. Hypertension. 5. Arthritis. History of Present Illness History of Present Illness LE edema, a little worse than yesterday weight up from 208 to 211 bumex only this AM, urine output about 200 only Warfarin at goal is 2-3 for atrial fibrillation. Cardiology and renal following Vitals Vitals Vital Signs Date Time Temp Pulse Resp B/P Pulse Ox O2 Delivery O2 Flow Rate FiO2 08/30/16 09:19 82 126/69 08/30/16 07:22 97.7 20 91 Nasal Cannula 2.0 97.7 Physical Exam General: Alert, Oriented X3, Cooperative, No acute distress Heart: Regular rate (V paced with underlying AFIB), Other (3/6 systolic murmur to apical) Lungs: Clear, Other Abdomen: Soft, No tenderness Extremities: No cyanosis, Other (1+ bilateral LE pitting edema, some abd edema , min anasarca) Skin: No breakdown, No significant lesion Labs LABS Laboratory Tests Test 08/29/16 11:38 08/29/16 16:55 08/29/16 20:49 08/30/16 04:40 Glucose (Fingerstick) 124mg/dL (70-99) 153mg/dL (70-99) 194mg/dL (70-99) Sodium Level 144mmol/L (136-145) Potassium Level 4.0mmol/L (3.5-5.1) Chloride Level 105mmol/L (98-107) Carbon Dioxide Level 32mmol/L (21-32) Anion Gap 7 (6-14) Blood Urea Nitrogen 33mg/dL (8-26) Creatinine 1.6mg/dL (0.7-1.3) Estimated GFR (Cockcroft-Gault) 42.6 Glucose Level 75mg/dL (70-99) Calcium Level 9.3mg/dL (8.5-10.1) Test 08/30/16 07:25 08/30/16 08:00 Glucose (Fingerstick) 53mg/dL (70-99) 78mg/dL (70-99) Review of Systems Review of Systems no n.v.d dry mouth Assessment and Plan Assessmemt and Plan IV lasix 80 X1 now. discussed with Renal, Problems Medical Problems: (1) Acute on chronic congestive heart failure Status: Acute (2) Chronic renal insufficiency Status: Acute Problems: Comment Review of Relevant I have reviewed the following items liz (where applicable) has been applied. Labs Laboratory Tests Test 08/28/16 16:00 08/28/16 16:20 08/28/16 16:45 08/28/16 18:09 White Blood Count 9.6x10^3/uL (4.0-11.0) Red Blood Count 4.81x10^6/uL (4.30-5.70) Hemoglobin 12.1g/dL (13.0-17.5) Hematocrit 38.3% (39.0-53.0) Mean Corpuscular Volume 80fL (79-100) Mean Corpuscular Hemoglobin 25pg (25-35) Mean Corpuscular Hemoglobin Concent 32g/dL (31-37) Red Cell Distribution Width 18.9% (11.5-14.5) Platelet Count 231x10^3/uL (140-400) Neutrophils (%) (Auto) 77% (31-73) Lymphocytes (%) (Auto) 10% (24-48) Monocytes (%) (Auto) 9% (0-9) Eosinophils (%) (Auto) 3% (0-3) Basophils (%) (Auto) 1% (0-3) Neutrophils # (Auto) 7.4x10^3uL (1.8-7.7) Lymphocytes # (Auto) 0.9x10^3/uL (1.0-4.8) Monocytes # (Auto) 0.9x10^3/uL (0.0-1.1) Eosinophils # (Auto) 0.3x10^3/uL (0.0-0.7) Basophils # (Auto) 0.1x10^3/uL (0.0-0.2) Sodium Level 144mmol/L (136-145) Potassium Level 4.2mmol/L (3.5-5.1) Chloride Level 104mmol/L (98-107) Carbon Dioxide Level 33mmol/L (21-32) Anion Gap 7 (6-14) Blood Urea Nitrogen 33mg/dL (8-26) Creatinine 1.4mg/dL (0.7-1.3) Estimated GFR (Cockcroft-Gault) 49.7 BUN/Creatinine Ratio 24 (6-20) Glucose Level 178mg/dL (70-99) Calcium Level 9.9mg/dL (8.5-10.1) Total Bilirubin 0.8mg/dL (0.2-1.0) Aspartate Amino Transf (AST/SGOT) 40U/L (15-37) Alanine Aminotransferase (ALT/SGPT) 36U/L (16-63) Alkaline Phosphatase 174U/L (46-116) Creatine Kinase 226U/L (39-308) Creatine Kinase MB (Mass) 9.0ng/mL (0.0-3.6) Creatine Kinase MB Relative Index 4.0% (0-4) Troponin I Quantitative 0.043ng/mL (0.000-0.055) LO-Gwo-L-Type Natriuretic Peptide 50524pj/mL (0-124) Total Protein 7.1g/dL (6.4-8.2) Albumin 3.3g/dL (3.4-5.0) Albumin/Globulin Ratio 0.9 (1.0-1.7) Prothrombin Time 25.4SEC (11.7-14.0) Prothromb Time International Ratio 2.5 (0.8-1.1) Urine Collection Type Unknown Urine Color Yellow Urine Clarity Clear Urine pH 5.0 Urine Specific Quinn 1.020 Urine Protein 30mg/dL (NEG-TRACE) Urine Glucose (UA) Negativemg/dL (NEG) Urine Ketones (Stick) Negativemg/dL (NEG) Urine Blood Moderate (NEG) Urine Nitrite Negative (NEG) Urine Bilirubin Negative (NEG) Urine Urobilinogen Dipstick 0.2mg/dL (0.2 mg/dL) Urine Leukocyte Esterase Negative (NEG) Urine RBC 3-5/HPF (0-2) Urine WBC 0/HPF (0-4) Urine Squamous Epithelial Cells Occ/LPF Urine Bacteria 0/HPF (0-FEW) Urine Mucus Marked/LPF Glucose (Fingerstick) 140mg/dL (70-99) Test 08/28/16 20:54 08/28/16 21:17 08/29/16 03:55 08/29/16 08:07 Glucose (Fingerstick) 202mg/dL (70-99) 65mg/dL (70-99) Troponin I Quantitative 0.045ng/mL (0.000-0.055) 0.052ng/mL (0.000-0.055) White Blood Count 9.0x10^3/uL (4.0-11.0) Red Blood Count 4.53x10^6/uL (4.30-5.70) Hemoglobin 11.3g/dL (13.0-17.5) Hematocrit 35.2% (39.0-53.0) Mean Corpuscular Volume 78fL (79-100) Mean Corpuscular Hemoglobin 25pg (25-35) Mean Corpuscular Hemoglobin Concent 32g/dL (31-37) Red Cell Distribution Width 18.8% (11.5-14.5) Platelet Count 209x10^3/uL (140-400) Neutrophils (%) (Auto) 73% (31-73) Lymphocytes (%) (Auto) 10% (24-48) Monocytes (%) (Auto) 12% (0-9) Eosinophils (%) (Auto) 4% (0-3) Basophils (%) (Auto) 1% (0-3) Neutrophils # (Auto) 6.6x10^3uL (1.8-7.7) Lymphocytes # (Auto) 0.8x10^3/uL (1.0-4.8) Monocytes # (Auto) 1.1x10^3/uL (0.0-1.1) Eosinophils # (Auto) 0.3x10^3/uL (0.0-0.7) Basophils # (Auto) 0.1x10^3/uL (0.0-0.2) Prothrombin Time 27.8SEC (11.7-14.0) Prothromb Time International Ratio 2.8 (0.8-1.1) Sodium Level 145mmol/L (136-145) Potassium Level 4.3mmol/L (3.5-5.1) Chloride Level 106mmol/L (98-107) Carbon Dioxide Level 33mmol/L (21-32) Anion Gap 6 (6-14) Blood Urea Nitrogen 31mg/dL (8-26) Creatinine 1.5mg/dL (0.7-1.3) Estimated GFR (Cockcroft-Gault) 45.9 Glucose Level 110mg/dL (70-99) Calcium Level 9.2mg/dL (8.5-10.1) Magnesium Level 1.9mg/dL (1.8-2.4) Triglycerides Level 52mg/dL (0-150) Cholesterol Level 86mg/dL (0-200) LDL Cholesterol, Calculated 43mg/dL (0-100) VLDL Cholesterol, Calculated 10mg/dL (0-40) HDL Cholesterol 33mg/dL (40-60) Cholesterol/HDL Ratio 2.6 Test 08/29/16 11:38 08/29/16 16:55 08/29/16 20:49 08/30/16 04:40 Glucose (Fingerstick) 124mg/dL (70-99) 153mg/dL (70-99) 194mg/dL (70-99) Sodium Level 144mmol/L (136-145) Potassium Level 4.0mmol/L (3.5-5.1) Chloride Level 105mmol/L (98-107) Carbon Dioxide Level 32mmol/L (21-32) Anion Gap 7 (6-14) Blood Urea Nitrogen 33mg/dL (8-26) Creatinine 1.6mg/dL (0.7-1.3) Estimated GFR (Cockcroft-Gault) 42.6 Glucose Level 75mg/dL (70-99) Calcium Level 9.3mg/dL (8.5-10.1) Test 08/30/16 07:25 08/30/16 08:00 Glucose (Fingerstick) 53mg/dL (70-99) 78mg/dL (70-99) Laboratory Tests Test 08/29/16 11:38 08/29/16 16:55 08/29/16 20:49 08/30/16 04:40 Glucose (Fingerstick) 124mg/dL (70-99) 153mg/dL (70-99) 194mg/dL (70-99) Sodium Level 144mmol/L (136-145) Potassium Level 4.0mmol/L (3.5-5.1) Chloride Level 105mmol/L (98-107) Carbon Dioxide Level 32mmol/L (21-32) Anion Gap 7 (6-14) Blood Urea Nitrogen 33mg/dL (8-26) Creatinine 1.6mg/dL (0.7-1.3) Estimated GFR (Cockcroft-Gault) 42.6 Glucose Level 75mg/dL (70-99) Calcium Level 9.3mg/dL (8.5-10.1) Test 08/30/16 07:25 08/30/16 08:00 Glucose (Fingerstick) 53mg/dL (70-99) 78mg/dL (70-99) Medications Current Medications Ondansetron HCl (Zofran) 4 mg PRN Q8HRS PRN IV NAUSEA/VOMITING; Start 08/28/16 at 17:30; Stop 08/29/16 at 17:29; Status DC Fentanyl Citrate 50 mcg 50 mcg PRN Q2HR PRN IV PAIN; Start 08/28/16 at 17:30; Stop 08/29/16 at 17:29; Status DC Sodium Chloride (Iv Sodium Chloride 0.9% 1000ml Bag) 1,000 ml @ 30 mls/hr Q24H IV ; Start 08/28/16 at 17:16; Stop 08/28/16 at 21:33; Status DC Acetaminophen (Tylenol) 650 mg PRN Q4HRS PRN PO FEVER; Start 08/28/16 at 17:30 ; Stop 08/29/16 at 17:29; Status DC Furosemide (Lasix) 80 mg 1X ONCE IVP Last administered on 08/28/16 19:37; Start 08/28/16 at 18:00; Stop 08/28/16 at 18:01; Status DC Insulin Aspart (Novolog) 0-9 UNITS TIDWMEALS SQ ; Start 08/29/16 at 08:00 Dextrose 12.5 gm PRN Q15MIN PRN IV SEE COMMENTS; Start 08/28/16 at 19:00 Acetaminophen (Tylenol) 500 mg PRN Q12HR PRN PO PAIN; Start 08/28/16 at 19:30 Allopurinol (Zyloprim) 100 mg QHS PO Last administered on 08/29/16 21:27; Start 08/28/16 at 21:00 Amoxicillin/ Clavulanate Potassium (Augmentin 875/ 125mg) 1 tab BID PO Last administered on 08/30/16 09:18; Start 08/28/16 at 21:00 Aspirin (Children'S Aspirin) 81 mg DAILY PO Last administered on 08/30/16 09: 18; Start 08/29/16 at 09:00 Guaifenesin (MUCINEX ER with DM) 1 tab QHS PO Last administered on 08/29/16 21 :27; Start 08/28/16 at 21:00 Oxycodone/ Acetaminophen (Percocet 5/325) 1 tab PRN Q4HRS PRN PO PAIN; Start at 19:30 Simvastatin (Zocor) 20 mg HS PO Last administered on 08/29/16 21:27; Start at 21:00 Warfarin Sodium (Coumadin) 2.5 mg QSU PO ; Start 09/02/16 at 16:00 Warfarin Sodium (Coumadin) 5 mg DAILY16 PO Last administered on 08/28/16 21:18 ; Start 08/28/16 at 21:00; Stop 08/29/16 at 15:07; Status DC Non-Formulary Medication 1 tab QFR PO ; Start 08/31/16 at 16:00; Status UNV Bumetanide (Bumex) 2 mg DAILYWBKFT PO Last administered on 08/30/16 09:17; Start 08/29/16 at 08:00 Vitamin D (Vitamin D3) 3,000 unit DAILY PO Last administered on 08/30/16 09:18 ; Start 08/29/16 at 09:00 Insulin Detemir (Levemir) 20 units QHS SQ Last administered on 08/29/16 21:31 ; Start 08/28/16 at 21:00 Multivitamins/ Calcium (Thera M Plus) 1 tab DAILY PO Last administered on 09:18; Start 08/29/16 at 09:00 Potassium Chloride (Klor-Con) 20 meq DAILYWBKFT PO Last administered on 09:18; Start 08/29/16 at 08:00 Famotidine (Pepcid) 20 mg BID PO Last administered on 08/30/16 09:18; Start at 21:00 Linagliptin (Tradjenta) 5 mg DAILY PO Last administered on 08/30/16 09:18; Start 08/29/16 at 09:00 Warfarin Sodium (Coumadin Per Physician) 1 each PRN DAILY PRN MC SEE COMMENTS Last administered on 08/29/16 15:09; Start 08/28/16 at 20:15 Metoprolol Tartrate (Lopressor) 12.5 mg BID PO Last administered on 08/30/16 09:19; Start 08/29/16 at 12:00 Warfarin Sodium (Coumadin) 5 mg QM-F@16 PO Last administered on 08/29/16 16:37 ; Start 08/29/16 at 16:00 Warfarin Sodium (Coumadin) 5 mg QSA@16 PO ; Start 09/01/16 at 16:00 Furosemide (Lasix) 40 mg 1X ONCE IVP ; Start 08/30/16 at 11:15; Stop 08/30/16 at 11:16; Status UNV Active Scripts Active Reported Multi Vitamin Daily (Multivitamin) 1 Each Tablet 1 Each PO DAILY Vitamin D (Cholecalciferol (Vitamin D3)) 2,000 Unit Tablet 3,000 Unit PO DAILY Tylenol Extra Strength (Acetaminophen) 500 Mg Tablet 500 Mg PO PRN Q12HR PRN Augmentin 875-125 Tablet (Amoxicillin/Potassium Clav) 1 Each Tablet 1 Tab PO BID Mucinex Dm Er 600-30 Mg Tablet (Guaifenesin/Dextromethorphan) 1 Each Tab.er.12h 20-400 Each PO QHS Warfarin Sodium 2.5 Mg Tablet 2.5 Mg PO QSU Warfarin Sodium 5 Mg Tablet 5 Mg PO DAILY Potassium Chloride 20 Meq Tablet.er 20 Meq PO DAILY Alendronate Sodium 70 Mg Tablet 1 Tab PO QFR Percocet 5-325 Mg Tablet (Oxycodone/Acetaminophen) 1 Each Tablet 1-2 Tab PO Q4- 6HRS Levemir (Insulin Detemir) 100 Unit/1 Ml Vial 20 Unit SQ HS LAST DOSE GIVEN: DATE:06-23-15 TIME:9:00 p.m. NEXT DOSE DUE: DATE:06-24-15 TIME:9:00 p.m. Simvastatin 20 Mg Tablet 20 Mg PO HS LAST DOSE GIVEN: DATE:06-23-15 TIME:9:00 p.m. NEXT DOSE DUE: DATE:06-24-15 TIME:9:00 p.m. Bumetanide 2 Mg Tablet 2 Mg PO DAILYWBKFT LAST DOSE GIVEN: DATE:06-24-15 TIME:8:30 a.m. NEXT DOSE DUE: DATE:06-25-15 TIME:8:30 a.m. Aspirin 81 Mg Tab.chew 81 Mg PO LAST DOSE GIVEN: DATE:06-24-15 TIME:8:30 a.m. NEXT DOSE DUE: DATE:06-25-15 TIME:8:30 a.m. Januvia (Sitagliptin Phosphate) 100 Mg Tablet 100 Mg PO DAILYWBKFT Not taken while in hosp. May resume at home as directed Allopurinol 100 Mg Tablet 100 Mg PO QHS LAST DOSE GIVEN: DATE: 06/23 TIME: 5 pm NEXT DOSE DUE: DATE: 06/24 TIME: 5 pm Ranitidine Hcl 150 Mg Tablet 150 Mg PO BIDAC LAST DOSE GIVEN: DATE:06-24-15 TIME:8:30 a.m. NEXT DOSE DUE: DATE:06-24-15 TIME: 5:00 p.m. Vitals/I & O Vital Sign - Last 24 Hours 08/29/16 08/29/16 08/29/16 08/29/16 13:37 15:12 19:00 19:30 Temp 98.2 97.9 98.2 97.9 Pulse 80 80 95 Resp 20 18 B/P 119/65 138/77 144/71 Pulse Ox 92 92 O2 Delivery Room Air Room Air Room Air 08/29/16 08/29/16 08/30/16 08/30/16 21:28 23:00 03:00 07:22 Temp 97.6 97.8 97.7 97.6 97.8 97.7 Pulse 80 80 80 82 Resp 18 18 20 B/P 144/71 120/80 93/51 126/69 Pulse Ox 95 93 91 O2 Delivery Room Air Nasal Cannula Nasal Cannula O2 Flow Rate 2.0 2.0 08/30/16 09:19 Pulse 82 B/P 126/69 Intake and Output 08/29/16 08/29/16 08/30/16 15:00 23:00 07:00 Intake Total 500 ml 900 ml Output Total 200 ml 950 ml Balance 300 ml -50 ml VARGHESE KUMAR MD Aug 30, 2016 11:18
--- NOTE | 2016-08-30 13:22 | PDOC ---
GIRMA OCONNELL SEO SPECIALIST 08/30/16 1322: CARDIO Progress Notes Date and Time Date of Service 08/30/2016 Time of Evaluation 1250 Subjective Subjective: No Chest Pain, No shortness of breath, No Palpitations, No Dizziness, Other (feels better still has some AMBRIZ. ) Vitals Vitals Vital Signs Date Time Temp Pulse Resp B/P Pulse Ox O2 Delivery O2 Flow Rate FiO2 08/30/16 09:19 82 126/69 08/30/16 08:00 Room Air 08/30/16 07:22 97.7 20 91 2.0 97.7 Weight Weight [ ] Input and Output Intake and Output Intake and Output 08/30/16 07:00 Intake Total 1400 ml Output Total 1150 ml Balance 250 ml Intake Oral 1400 ml Output Urine Total 1150 ml # Voids 1 Laboratory Labs Laboratory Tests Test 08/29/16 16:55 08/29/16 20:49 08/30/16 04:40 08/30/16 07:25 Glucose (Fingerstick) 153mg/dL (70-99) 194mg/dL (70-99) 53mg/dL (70-99) Sodium Level 144mmol/L (136-145) Potassium Level 4.0mmol/L (3.5-5.1) Chloride Level 105mmol/L (98-107) Carbon Dioxide Level 32mmol/L (21-32) Anion Gap 7 (6-14) Blood Urea Nitrogen 33mg/dL (8-26) Creatinine 1.6mg/dL (0.7-1.3) Estimated GFR (Cockcroft-Gault) 42.6 Glucose Level 75mg/dL (70-99) Calcium Level 9.3mg/dL (8.5-10.1) Test 08/30/16 08:00 Glucose (Fingerstick) 78mg/dL (70-99) Review of Systems Constitutional: yes: alert, oriented, weakness Ears/Nose/Throat: Yes: no symptom reported Eyes: Yes: no symptom reported Pulmonary: Yes no symptom reported Cardiovascular: Yes no symptom reported Gastrointestional: Yes: constipation Genitourinary: Yes: no symptom reported Musculoskeletal: Yes: muscle stiffness Skin: Yes color change Physical Exam HEENT: Neck Supple W Full Motion Chest: Symmetric LUNGS: Other (bibasilar crackles) Heart: S1S2, irregularly irregular (AFIB) Abdomen: Soft N/T Extremities: No Calf Tenderness, Other (2+ bilateral LE pitting edema. ) Neurology: alert, oriented, follow commands Assessment Assessment 1. Acute on chronic combined diastolic/systolic CHF: Multifactorial in etiology namely episodes of hypoglycemic reactions, AFIB RVR with no rate controlling agent, and uncontrolled RAHEEL with pt not utilizing CPAP. Pt will need to be reevaluated for his RAHEEL, avoid strict BG control, will place on Continue on bumex and metoprolol. Still has AMBRIZ, Not impressive UOP, CXR. today, agree with extra IV lasix. Will add zaroxylyn. 2. CAD: CABG in the past 2012. CP free. Troponin series normal. EKG noted V paced without acute changes. Stable. Continue with secondary prevention. 3. SACK CLEANING HAND-P/cardiomyopathy: Interrogation did reveal elevated corevue indicating chf and episodic AFIB RVR contributing to CHF. Otherwise normal functioning device. Continue with optimization. 4. Chronic AFIB: Rate controlled. Verified via interrogation. Past Zamora maze procedure and AV shelli ablation. Failed ablation. On coumadin for stroke prevention with INR at 2.8. Continue with BB. 5. HTN: Controlled. 6. HLP: statin, lipids well controlled 7. DM2: insulin dependent. episodes of hypoglycemia. Defer to PCP 8. CKD3: nephrology following. 9. Anemia of chronic disease: Hgb 11.3 10. RAHEEL: noncompliant with CPAP use. Defer to PCP. Seen by pulmonary as outpt. 11. Chronic augmentin treatment: managed by [facility] r/t multiple left knee revision and infection. ANDREIA HAMMOND MD 08/31/16 1103: CARDIO Progress Notes Assessment Assessment Patient seen and examined 08/30/16. Agree with CHAIR POST MACHINE OPERATOR's assessment and plan. Patient diuresing better after initiation of Zaroxolyn. CAD status stable. Continue current medical regimen. GIRMA OCONNELL APRN Aug 30, 2016 13:22 ANDREIA HAMMOND MD Aug 31, 2016 11:03
[2016-08-30] MEDS: METOLAZONE 2.5 MG TABLET PO SCH (13:51)
[2016-08-30] MEDS ORDERED: METOLAZONE 2.5 MG TABLET PO SCH (14:00)
--- NOTE | 2016-08-30 14:36 | RAD ---
Portable chest, 08/30/2016: History: Congestive heart failure Comparison is made to a study from 08/28/2016. A left-sided transvenous pacemaker is again noted with 3 leads extending into the heart. There has been a previous median sternotomy. The heart is enlarged. Vascular margination has improved slightly. There are ongoing basilar opacities obscuring the hemidiaphragms suggesting basilar pulmonary edema. There is persistent pleural thickening in the lateral costophrenic angles. Previous studies have suggested a component of chronic pleural-parenchymal scarring. No new abnormality is detected. IMPRESSION: Improving mild congestive heart failure superimposed upon bilateral pleural-parenchymal scarring.
[2016-08-30 15:08] VITALS: BP 144/95
[2016-08-30] MEDS: WARFARIN 5 MG TABLET. PO SCH (17:33)
[2016-08-30 19:52] VITALS: BP 122/71
[2016-08-30] MEDS: SIMVASTATIN 20 MG TABLET PO SCH (21:01)
[2016-08-30] MEDS: ALLOPURINOL 100 MG TABLET. PO SCH (21:01)
[2016-08-30] MEDS: GUAIFENESIN DM 600/30MG TAB.ER.12H. PO SCH (21:05)
[2016-08-30] MEDS: INSULIN DETEMIR 300 UNITS/3 ML INSULN.PEN. SQ SCH (21:08)
[2016-08-30 22:48] VITALS: BP 111/71
[2016-08-31 03:59] VITALS: BP 135/85
[2016-08-31 05:43] LABS: CALCIUM 9.3 mg/dL (8.5-10.1); CREATININE 1.5 mg/dL (0.7-1.3); GFR 45.9; POTASSIUM 4.2 mmol/L (3.5-5.1)
[2016-08-31 05:51] LABS: INR 2.7 (0.8-1.1); PROTHROMBIN TIME PATIENT 27.3 SEC (11.7-14.0)
[2016-08-31 07:00] VITALS: BP 124/76
[2016-08-31] MEDS: INSULIN ASPART 300 UNITS/3 ML INSULN.PEN SQ SCH ×2 (08:00→12:00)
[2016-08-31] MEDS: POTASSIUM CHLORIDE 20 MEQ TABLET.ER. PO SCH (09:33)
[2016-08-31] MEDS: BUMETANIDE 1 MG TABLET PO SCH (09:33)
[2016-08-31] MEDS: ASPIRIN 81 MG TAB.CHEW PO SCH (09:34)
[2016-08-31] MEDS: LINAGLIPTIN 5 MG TABLET PO SCH (09:34)
[2016-08-31] MEDS: CHOLECALCIFEROL (VITAMIN D3) 1,000 UNIT TABLET PO SCH (09:35)
[2016-08-31] MEDS: MULTIVITAMIN with MINERAL TABLET. PO SCH (09:35)
[2016-08-31] MEDS: AMOXICILLIN/K CLAV 875/125MG TABLET. PO SCH (09:36)
[2016-08-31] MEDS: METOLAZONE 2.5 MG TABLET PO SCH (09:37)
[2016-08-31] MEDS: FAMOTIDINE 20 MG TABLET. PO SCH (09:37)
[2016-08-31] MEDS: METOPROLOL TART IMMED RELEASE 25 MG TABLET PO SCH (09:38)
[2016-08-31] MEDS ORDERED: FUROSEMIDE 100 MG/10 ML VIAL IVP ONE (09:45)
--- NOTE | 2016-08-31 10:23 | PDOC ---
Renal-Progress Notes Subjective Notes Notes SITTING UP AND NO SOB History of Present Illness Hx of present illness BETTER Vitals Vitals Vital Signs Date Time Temp Pulse Resp B/P Pulse Ox O2 Delivery O2 Flow Rate FiO2 08/31/16 09:38 80 124/76 08/31/16 07:00 98.3 22 91 Room Air 98.3 08/31/16 03:59 2.0 Weight Weight [ ] I.O. Intake and Output Intake and Output 08/31/16 07:00 Intake Total 520 ml Output Total 2825 ml Balance -2305 ml Intake Oral 520 ml Output Urine Total 2825 ml Labs Labs Laboratory Tests Test 08/30/16 13:50 08/30/16 17:49 08/30/16 20:46 08/31/16 04:30 Glucose (Fingerstick) 206mg/dL (70-99) 85mg/dL (70-99) 201mg/dL (70-99) Prothrombin Time 27.3SEC (11.7-14.0) Prothromb Time International Ratio 2.7 (0.8-1.1) Sodium Level 143mmol/L (136-145) Potassium Level 4.2mmol/L (3.5-5.1) Chloride Level 104mmol/L (98-107) Carbon Dioxide Level 35mmol/L (21-32) Anion Gap 4 (6-14) Blood Urea Nitrogen 34mg/dL (8-26) Creatinine 1.5mg/dL (0.7-1.3) Estimated GFR (Cockcroft-Gault) 45.9 Glucose Level 135mg/dL (70-99) Calcium Level 9.3mg/dL (8.5-10.1) Review of Systems Constitutional: yes: alert, oriented, weakness Ears/Nose/Throat: Yes: no symptom reported Eyes: Yes: no symptom reported Pulmonary: Yes no symptom reported Cardiovascular: Yes no symptom reported Gastrointestional: Yes: constipation Genitourinary: Yes: no symptom reported Musculoskeletal: Yes: muscle stiffness Skin: Yes color change Physical Exam General Appearance: no apparent distress Skin: warm Respiratory: bilateral CTA Heart: S1S2, RRR Extremities: pulses present, edema Neurology: alert, oriented, follow commands Musculoskeletal: Other (knee infection) Assessment Assessment IMP CKD STAGE 3 WITH CR AT BASELINE DM II LE WOUNDS CHF-COMPENSATED EDEMA WITH AN INFLAMMATORY COMPONENT PLAN CONT WITH DIURETICS WOUND CARE AND ANTIBIOTICS ELVA KOLB MD Aug 31, 2016 10:23
[2016-08-31 11:00] VITALS: BP 126/88
--- NOTE | 2016-08-31 11:58 | PDOC ---
GIRMA OCONNELL EVENT PLANNING INTERN 08/31/16 1158: CARDIO Progress Notes Date and Time Date of Service 08/31/2016 Time of Evaluation 1150 Subjective Subjective: No Chest Pain, No shortness of breath, No Palpitations, No Dizziness, Other (ambulatory in the hallway without AMBRIZ) Vitals Vitals Vital Signs Date Time Temp Pulse Resp B/P Pulse Ox O2 Delivery O2 Flow Rate FiO2 08/31/16 11:00 98.0 80 20 126/88 96 Room Air 98.0 08/31/16 03:59 2.0 Weight Weight [ ] Input and Output Intake and Output Intake and Output 08/31/16 07:00 Intake Total 520 ml Output Total 2825 ml Balance -2305 ml Intake Oral 520 ml Output Urine Total 2825 ml Laboratory Labs Laboratory Tests Test 08/30/16 13:50 08/30/16 17:49 08/30/16 20:46 08/31/16 04:30 Glucose (Fingerstick) 206mg/dL (70-99) 85mg/dL (70-99) 201mg/dL (70-99) Prothrombin Time 27.3SEC (11.7-14.0) Prothromb Time International Ratio 2.7 (0.8-1.1) Sodium Level 143mmol/L (136-145) Potassium Level 4.2mmol/L (3.5-5.1) Chloride Level 104mmol/L (98-107) Carbon Dioxide Level 35mmol/L (21-32) Anion Gap 4 (6-14) Blood Urea Nitrogen 34mg/dL (8-26) Creatinine 1.5mg/dL (0.7-1.3) Estimated GFR (Cockcroft-Gault) 45.9 Glucose Level 135mg/dL (70-99) Calcium Level 9.3mg/dL (8.5-10.1) Review of Systems Constitutional: yes: alert, oriented, weakness Ears/Nose/Throat: Yes: no symptom reported Eyes: Yes: no symptom reported Pulmonary: Yes no symptom reported Cardiovascular: Yes no symptom reported Gastrointestional: Yes: constipation Genitourinary: Yes: no symptom reported Musculoskeletal: Yes: muscle stiffness Skin: Yes color change Physical Exam HEENT: Neck Supple W Full Motion Chest: Symmetric LUNGS: Other (faint bibasilar crackles) Heart: S1S2, irregularly irregular (AFIB; no significant rhythm ectopies overnight) Abdomen: Soft N/T, Other (truncal obesity) Extremities: No Calf Tenderness, Other (1-2+ bilateral LE pitting edema. ) Neurology: alert, oriented, follow commands Assessment Assessment 1. Acute on chronic combined diastolic/systolic CHF: Clinically compensated. Emphasized CPAP compliance, preventative measures of CHF such as Na control and fluid restriction. Weight parameters and diary. Continue with Bumex with addition of zaroxylyn. Follow up in 4 weeks. 2. CAD: CABG in the past 2012. CP free. Troponin series normal. EKG noted V paced without acute changes. Stable. Continue with secondary prevention. 3. 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 Continue with optimization. Current TTE noted with EF of 35% from past EF of 40%. Will continue with optimization, repeat TTE in 3 months and will note if upgrade to EDUCATION PARAPROFESSIONAL-D is warranted. 4. Chronic AFIB: Rate controlled. Verified via interrogation. Past Zamora maze procedure and AV shelli ablation. Failed ablation. On coumadin for stroke prevention with INR at 2.7. Continue with BB. 5. HTN: Controlled. 6. HLP: statin, lipids well controlled 7. DM2: insulin dependent. episodes of hypoglycemia. Avoid tight control. Defer to PCP 8. CKD3: stable. nephrology following. 9. Anemia of chronic disease: Hgb 11.3 10. RAHEEL: noncompliant with CPAP use. Emphasized CPAP, Advise to follow up with pulmonary as outpt. 11. Chronic augmentin treatment: managed by [facility] r/t multiple left knee revision and infection. ANDREIA HAMMOND MD 08/31/16 1637: CARDIO Progress Notes Assessment Assessment Patient seen and examined. Agree with CLARIFYING PLANT OPERATOR's assessment and plan. Diuresed well with addition of zaroxolyn. OK for DC from our standpoint. Follow up in one month. GIRMA OCONNELL APRN Aug 31, 2016 11:58 ANDREIA HAMMOND MD Aug 31, 2016 16:37
[2016-08-31] MEDS ORDERED: METO2.5T PO (13:54)
--- NOTE | 2016-08-31 13:58 | PDOC3 ---
Discharge Summary Visit Information Date of Admission: Aug 28, 2016 Date of Discharge: Aug 31, 2016 Admitting Diagnosis: CHF Final Diagnosis 1. Acute on chronic combined diastolic/systolic CHF: Clinically compensated 2. CAD: CABG in the past 2012. 3. [employer]-P/cardiomyopathy 4. Chronic AFIB: 5. HTN: 6. HLP: s 7. DM2: insulin dependent. 8. CKD3: stable. 9. Anemia of CKD 10. RAHEEL: has been noncompliant with CPAP use. benefit discussed 11. Chronic augmentin treatment: managed by ALLYSON MONTE r/t multiple left knee revision and infection. Problems Medical Problems: (1) Acute on chronic congestive heart failure Status: Acute (2) Chronic renal insufficiency Status: Acute Brief Hospital Course Allergies Allergies Coded Allergies Type Severity Reaction Last Updated Verified Penicillins Allergy Intermediate 08/31/16 Yes morphine Allergy Intermediate "it does bad things" 06/21/15 Yes NSAIDS (Non-Steroidal Anti-Inflamma Adverse Reaction Severe AVOIDS DUE TO CHRONIC KIDNEY DISEASE 06/21/15 Yes Vital Signs Vital Signs Date Time Temp Pulse Resp B/P Pulse Ox O2 Delivery O2 Flow Rate FiO2 08/31/16 11:00 98.0 80 20 126/88 96 Room Air 98.0 08/31/16 03:59 2.0 Lab Results Laboratory Tests Test 08/29/16 16:55 08/29/16 20:49 08/30/16 04:40 08/30/16 07:25 Glucose (Fingerstick) 153mg/dL (70-99) 194mg/dL (70-99) 53mg/dL (70-99) Sodium Level 144mmol/L (136-145) Potassium Level 4.0mmol/L (3.5-5.1) Chloride Level 105mmol/L (98-107) Carbon Dioxide Level 32mmol/L (21-32) Anion Gap 7 (6-14) Blood Urea Nitrogen 33mg/dL (8-26) Creatinine 1.6mg/dL (0.7-1.3) Estimated GFR (Cockcroft-Gault) 42.6 Glucose Level 75mg/dL (70-99) Calcium Level 9.3mg/dL (8.5-10.1) Test 08/30/16 08:00 08/30/16 13:50 08/30/16 17:49 08/30/16 20:46 Glucose (Fingerstick) 78mg/dL (70-99) 206mg/dL (70-99) 85mg/dL (70-99) 201mg/dL (70-99) Test 08/31/16 04:30 08/31/16 08:40 08/31/16 11:47 Prothrombin Time 27.3SEC (11.7-14.0) Prothromb Time International Ratio 2.7 (0.8-1.1) Sodium Level 143mmol/L (136-145) Potassium Level 4.2mmol/L (3.5-5.1) Chloride Level 104mmol/L (98-107) Carbon Dioxide Level 35mmol/L (21-32) Anion Gap 4 (6-14) Blood Urea Nitrogen 34mg/dL (8-26) Creatinine 1.5mg/dL (0.7-1.3) Estimated GFR (Cockcroft-Gault) 45.9 Glucose Level 135mg/dL (70-99) Calcium Level 9.3mg/dL (8.5-10.1) Glucose (Fingerstick) 98mg/dL (70-99) 135mg/dL (70-99) Laboratory Tests Test 08/30/16 17:49 08/30/16 20:46 08/31/16 04:30 08/31/16 08:40 Glucose (Fingerstick) 85mg/dL (70-99) 201mg/dL (70-99) 98mg/dL (70-99) Prothrombin Time 27.3SEC (11.7-14.0) Prothromb Time International Ratio 2.7 (0.8-1.1) Sodium Level 143mmol/L (136-145) Potassium Level 4.2mmol/L (3.5-5.1) Chloride Level 104mmol/L (98-107) Carbon Dioxide Level 35mmol/L (21-32) Anion Gap 4 (6-14) Blood Urea Nitrogen 34mg/dL (8-26) Creatinine 1.5mg/dL (0.7-1.3) Estimated GFR (Cockcroft-Gault) 45.9 Glucose Level 135mg/dL (70-99) Calcium Level 9.3mg/dL (8.5-10.1) Test 1/27/17 11:47 Glucose (Fingerstick) 135mg/dL (70-99) Brief Hospital Course Mr. Julio is a 71 old admitted with dyspnea, LE edema, anasarca and weight gain. recent viral illness dyspnea improved with IV lasix 80 X3 over 3 days, weight about stable at 208 , was [address] Mondragon 4 weeks Ef 35%, if worsened with next echo in three months, may need ICD fluid restrict, salt educated, weight management parameters for calling discussed Discharge Information Condition at Discharge: Improved Follow Up: Weeks Disposition/Orders: D/C to Home Scheduled Alendronate Sodium (Alendronate Sodium) 1 TAB PO QFR (Reported) Allopurinol (Allopurinol) 100 MG PO QHS (Reported) Amoxicillin/Potassium Clav (Augmentin 875-125 Tablet) 1 TAB PO BID (Reported) Bumetanide (Bumetanide) 2 MG PO DAILYWBKFT (Reported) Cholecalciferol (Vitamin D3) (Vitamin D) 3,000 UNIT PO DAILY (Reported) Guaifenesin/Dextromethorphan (Mucinex Dm Er 600-30 Mg Tablet) 20-400 EACH PO QHS (Reported) Insulin Detemir (Levemir) 20 UNIT SQ HS (Reported) Multivitamin (Multi Vitamin Daily) 1 EACH PO DAILY (Reported) Oxycodone/Apap 5-325 (Percocet 5-325 Mg Tablet) 1-2 TAB PO Q4-6HRS (Reported) Potassium Chloride (Potassium Chloride) 20 MEQ PO DAILY (Reported) Ranitidine Hcl (Ranitidine Hcl) 150 MG PO BIDAC (Reported) Simvastatin (Simvastatin) 20 MG PO HS (Reported) Sitagliptin Phosphate (Januvia) 100 MG PO DAILYWBKFT (Reported) Warfarin Sodium (Warfarin Sodium) 5 MG PO DAILY (Reported) Warfarin Sodium (Warfarin Sodium) 2.5 MG PO QSU (Reported) Scheduled PRN Acetaminophen (Tylenol Extra Strength) 500 MG PO PRN Q12HR PRN PRN PAIN ( Reported) Miscellaneous Medications Aspirin (Aspirin) 81 MG PO (Reported) Discontinued Medications Potassium Chloride (Potassium Chloride) 10 MEQ PO DAILYWBKFT (Reported) Warfarin Sodium (Warfarin Sodium) 1 TAB PO DAILY (Reported) Warfarin Sodium (Coumadin) 1 TAB PO DAILY (Reported) Patient Instructions Patient Instructions time >. 30 min VARGHESE KUMAR MD Aug 31, 2016 13:58
[2016-08-31 15:00] VITALS: BP 114/80
[2016-08-31] MEDS ORDERED: NON FORMULARY ITEM (Alendronate Sodium 1 TAB) PO SCH (16:00)
[2016-09-01] MEDS ORDERED: WARFARIN 5 MG TABLET. PO SCH (16:00)
[2016-09-02] MEDS ORDERED: WARFARIN 2.5 MG TABLET. PO SCH (16:00)
== END 2016-08-31 15:52 | disposition home or self-care (01) | DRG 291 ==
LOC: ER 13:22 → 2 SOUTH 16:20
PROVIDERS: ADMIT Internal Medicine; ATTEND Internal Medicine
DX: I13.0 Hypertensive heart and chronic kidney disease with heart failure and stage 1 through stage 4 chronic kidney disease, or unspecified chronic kidney disease (principal); I50.43 Acute on chronic combined systolic (congestive) and diastolic (congestive) heart failure; I42.9 Cardiomyopathy, unspecified; I48.2 Chronic atrial fibrillation; D63.1 Anemia in chronic kidney disease; E11.22 Type 2 diabetes mellitus with diabetic chronic kidney disease; E11.649 Type 2 diabetes mellitus with hypoglycemia without coma; E78.5 Hyperlipidemia, unspecified; G47.00 Insomnia, unspecified; G47.33 Obstructive sleep apnea (adult) (pediatric); I25.10 Atherosclerotic heart disease of native coronary artery without angina pectoris; K21.9 Gastro-esophageal reflux disease without esophagitis; M10.9 Gout, unspecified; M19.90 Unspecified osteoarthritis, unspecified site; N18.3 Chronic kidney disease, stage 3 (moderate); Z96.659 Presence of unspecified artificial knee joint; J30.9 Allergic rhinitis, unspecified; Z88.5 Allergy status to narcotic agent; Z79.4 Long term (current) use of insulin; I25.2 Old myocardial infarction; Z82.49 Family history of ischemic heart disease and other diseases of the circulatory system; Z83.3 Family history of diabetes mellitus; Z91.19 Patient's noncompliance with other medical treatment and regimen; Z95.1 Presence of aortocoronary bypass graft; Z95.5 Presence of coronary angioplasty implant and graft; Z88.0 Allergy status to penicillin; Z88.8 Allergy status to other drugs, medicaments and biological substances; Z98.890 Other specified postprocedural states
CPT/HCPCS: 36415; 71010; 80048; 80053; 80061; 81001; 82553; 82947; 83735; 83880; 84484; 85027; 85610; 93005; 93306; J1815; 99285-25

== ENCOUNTER → 2017-01-31 | Outpatient (CLI) | payer MEDICARE, OTHER ==
[~2017-01-31] MED LIST changes: +ACET500T33 PO; -ALBU2.5V13 IH; +ALBU2.5V14 IH; +ALEN70TA5 PO; +AMOX1TAB61 PO; +ASPI-630 PO; -ASPI81TA2 PO; +CLIN300C8 PO; -CLIN300C86 PO; +DOCU100C28 PO; -DOCU100C5 PO; +GUAI-107 PO; -GUAI-42 PO; +METO2.5T PO; +MULT-245 PO; +POTA20TA82 PO; +WARF2.5T71 PO; -WARF3TAB PO; +WARF3TAB54 PO
[2017-01-31 12:03] LABS: HEMATOCRIT 42.6 % (39.0-53.0); HEMOGLOBIN 14.5 g/dL (13.0-17.5)
[2017-01-31 12:31] LABS: BILIRUBIN,URINE NEGATIVE (NEG); GLUCOSE,URINE NEGATIVE (NEG); NITRITE,URINE NEGATIVE (NEG); PROTEIN,URINE 100 mg/dL (NEG-TRACE); UROBILINOGEN,URINE 0.2 mg/dL (0.2 mg/dL)
[2017-01-31 12:41] LABS: BACTERIA,URINE 0 /HPF (0-FEW); WBC,URINE 0 /HPF (0-4)
[2017-01-31 12:43] LABS: ALBUMIN 3.7 g/dL (3.4-5.0); CREATININE 1.3 mg/dL (0.7-1.3); GFR 54.1; MAGNESIUM 1.9 mg/dL (1.8-2.4); POTASSIUM 4.4 mmol/L (3.5-5.1)
[2017-01-31 14:26] LABS: % SAT IRON 16 % (15-34); IRON,SERUM 48 ug/dL (65-175)
[2017-01-31 14:42] LABS: URIC ACID 6.5 mg/dL (3.5-7.2)
[2017-01-31 19:17] LABS: UR PROTEIN RD 79.9 mg/dL (Not Estab.)
[2017-02-01 03:21] LABS: PTH INTACT 48 pg/mL (15-65)
== END | disposition home or self-care (01) ==
LOC: LAB 11:29
PROVIDERS: ATTEND Internal Medicine Nephrology
DX: N18.3 Chronic kidney disease, stage 3 (moderate) (principal); D50.9 Iron deficiency anemia, unspecified
CPT/HCPCS: 36415; 80069; 81001; 82570; 82607; 82728; 83540; 83550; 83735; 83970; 84156; 84550; 85014; 85018

== ENCOUNTER 2017-02-10 14:14 | Emergency (ER) | payer MEDICARE, OTHER ==
[~2017-02-10] VITALS: Ht 167.6 cm; Wt 83.5 kg
[2017-02-10 14:35] VITALS: BP 121/74
[2017-02-10 14:54] LABS: BILIRUBIN,URINE NEGATIVE (NEG); GLUCOSE,URINE NEGATIVE (NEG); NITRITE,URINE NEGATIVE (NEG); PH,URINE 7.5; PROTEIN,URINE 30 mg/dL (NEG-TRACE); UROBILINOGEN,URINE 0.2 mg/dL (0.2 mg/dL)
[2017-02-10 15:00] LABS: BACTERIA,URINE 0 /HPF (0-FEW); WBC,URINE 0 /HPF (0-4)
[2017-02-10] MEDS ORDERED: IV NORMAL SALINE 1000ML BAG 1,000 ML IV ONE (15:00)
[2017-02-10 15:23] LABS: BASO % 0 % (0-3); EOS % 3 % (0-3); HEMATOCRIT 40.7 % (39.0-53.0); HEMOGLOBIN 13.8 g/dL (13.0-17.5); LYMPH % 12 % (24-48); MEAN CORPUSCULAR HEMOGLOBIN 27 pg (25-35); MEAN CORPUSCULAR HGB CONC 34 g/dL (31-37); MEAN CORPUSCULAR VOLUME 81 fL (79-100); MONO % 10 % (0-9); NEUT % 75 % (31-73); PLATELET COUNT 168 x10^3/uL (140-400); RED BLOOD COUNT 5.02 x10^6/uL (4.30-5.70); RED CELL DISTRIBUTION WIDTH 15.1 % (11.5-14.5); WHITE BLOOD COUNT 8.7 x10^3/uL (4.0-11.0)
[2017-02-10 15:32] LABS: CALCIUM 10.2 mg/dL (8.5-10.1); CREATININE 1.3 mg/dL (0.7-1.3); GFR 54.1; POTASSIUM 3.9 mmol/L (3.5-5.1)
[2017-02-10 15:38] LABS: ALBUMIN 3.4 g/dL (3.4-5.0); ALBUMIN/GLOBULIN RATIO 0.9 (1.0-1.7); TOTAL BILIRUBIN 0.7 mg/dL (0.2-1.0); TOTAL PROTEIN 7.1 g/dL (6.4-8.2)
[2017-02-10] MEDS ORDERED: IOHEXOL 300 MG/ML 75 ML VIAL IV ONE (16:00)
[2017-02-10] MEDS ORDERED: CONTRAST GIVEN MC PRN (16:00)
--- NOTE | 2017-02-10 17:41 | RAD ---
CT abdomen and pelvis with contrast TECHNIQUE: Helical CT imaging of the abdomen and pelvis was acquired with 60 mL Omnipaque 300 intravenous contrast. HISTORY: Severe lower abdominal pain for 3 weeks. Abdomen findings: Lung bases demonstrate interstitial thickening and bronchial wall thickening. There is pleural thickening at the diaphragms and posterior pleura and at the medial basilar left lower lobe there is a round 3 cm dense nodule. L5 spondylolysis with grade 2 anterolisthesis and disc bulges and bulky facet osteophytes with severe spinal canal and neural frontal stenosis at L4-5 and L5-S1. Bilateral adrenal nodular hyperplasia or nonspecific nodules each measures 1.5 cm. 2 cm accessory spleen. Probable small gallstones in the gallbladder neck. There is a 4 mm nodular density of the right lateral gallbladder wall on coronal image 12. 2 cm fatty focus at the head of the pancreas. There is heterogeneous density of the liver and subtle surface irregularity early changes of cirrhosis not excluded. Spleen mildly enlarged, length 14.5 cm. The GI tract demonstrates no obstruction or inflammation. Appendix is negative. There is mild left para-aortic and common iliac chain adenopathy short axis diameter measuring up to 1 cm. Right lateral chest wall presumed lymph nodes raises diameter 50 mm axial image 4. Pelvis findings: Bladder, prostate, rectum and bones are unremarkable. No pelvic fluid or adenopathy. IMPRESSION: 1. Bilateral lower lobe pleural thickening and pulmonary interstitial thickening and bronchial wall thickening. This could be indicative of pulmonary edema superimposed upon chronic interstitial lung disease. There is a 3 cm round dense pulmonary nodule of the medial basilar left lower lobe abutting the thickened pleura, this could be round atelectasis although a neoplastic nodule or round pneumonia or are also considerations. 2. Probable mild imaging features of liver cirrhosis. Mild splenomegaly. No abdominal ascites. 3. Mild lower abdominal periaortic adenopathy. 4. Appendix is negative. 5. Gallstones. There is also a 4 mm nodular density of the gallbladder wall could represent a small polyp. This could be further characterized by sonography. 6. Right lateral chest wall 15 mm nodule may be a enlarged lymph node. 7. Nonspecific bilateral adrenal nodules. Exposure: One or more of the following individualized dose reduction techniques were utilized for this examination: 1. Automated exposure control 2. Adjustment of the mA and/or kV according to patient size 3. Use of iterative reconstruction technique Electronically signed by: Denzel Rich MD (02/10/2017 5:38 PM) [facility], [facility]
[2017-02-10] MEDS ORDERED: DOCU-109 PO (18:02)
--- NOTE | 2017-02-10 18:03 | PHYS DOC ---
Past Medical History Past Medical History: Arthritis, CAD, Hypertension, Vascular Disease Past Surgical History: Coronary Bypass Surgery, Knee Replacement Additional Past Surgical Histo: carpal tunnel right, "lung cleaning", cardiac stents X 7, r thoracotomy Alcohol Use: None Drug Use: None Adult General Chief Complaint Chief Complaint: ABDOMINAL PAIN HPI HPI A 1-year-old male with no prior chronic abdominal history in now complaining of abdominal pain earlier. Per patient has been very constipated recently has been straining to move his bowels. He did move his bowels earlier today after which he had some abdominal pain. Pain is improved currently. Normal urinary habits no diarrhea. No nausea or vomiting. Denies fevers chills sweats or shaking chills when patient does have the pain is not worse with movement and is crampy in nature. Review of Systems Review of Systems Constitutional: Denies fever or chills [] Eyes: Denies change in visual acuity, redness, or eye pain [] HENT: Denies nasal congestion or sore throat [] Respiratory: Denies cough or shortness of breath [] Cardiovascular: No additional information not addressed in HPI [] GI: Denies abdominal pain, nausea, vomiting, bloody stools or diarrhea [] : Denies dysuria or hematuria [] Musculoskeletal: Denies back pain or joint pain [] Integument: Denies rash or skin lesions [] Neurologic: Denies headache, focal weakness or sensory changes [] Endocrine: Denies polyuria or polydipsia [] Current Medications Current Medications Current Medications Medications (Trade) Dose Ordered Sig/Logan Start Time Stop Time Status Last Admin Dose Admin Info (Do NOT chart on this entry -- for MONITORING) 1 each PRN DAILY PRN 02/10/17 16:00 02/10/17 18:22 DC Iohexol (Omnipaque 300 Mg/ml) 60 ml 1X ONCE 02/10/17 16:00 02/10/17 16:01 DC 02/10/17 16:01 60 ML Sodium Chloride 1,000 ml @ 1,000 mls/hr 1X ONCE 02/10/17 15:00 02/10/17 15:59 DC 02/10/17 15:00 500 MLS/HR Allergies Allergies Allergies Coded Allergies Type Severity Reaction Last Updated Verified Penicillins Allergy Intermediate 08/31/16 Yes morphine Allergy Intermediate "it does bad things" 06/21/15 Yes NSAIDS (Non-Steroidal Anti-Inflamma Adverse Reaction Severe AVOIDS DUE TO CHRONIC KIDNEY DISEASE 06/21/15 Yes Physical Exam Physical Exam Well-appearing male no acute distress smiling and comfortable no focal abdominal tenderness appreciated nondistended no mass or megaly normal bowel sounds remainder of exam benign. Constitutional: Well developed, well nourished, no acute distress, non-toxic appearance. [] HENT: Normocephalic, atraumatic, bilateral external ears normal, oropharynx moist, no oral exudates, nose normal. [] Eyes: PERRLA, EOMI, conjunctiva normal, no discharge. [] Neck: Normal range of motion, no tenderness, supple, no stridor. [] Cardiovascular:Heart rate regular rhythm, no murmur [] Lungs & Thorax: Bilateral breath sounds clear to auscultation [] Abdomen: Bowel sounds normal, soft, no tenderness, no masses, no pulsatile masses. [] Skin: Warm, dry, no erythema, no rash. [] Back: No tenderness, no CVA tenderness. [] Extremities: No tenderness, no cyanosis, no clubbing, ROM intact, no edema. [] Neurologic: Alert and oriented X 3, normal motor function, normal sensory function, no focal deficits noted. [] Psychologic: Affect normal, judgement normal, mood normal. [] Current Patient Data Vital Signs Vital Signs Date Time Temp Pulse Resp B/P (MAP) Pulse Ox O2 Delivery O2 Flow Rate FiO2 02/10/17 14:35 97.9 80 16 121/74 (90) 100 Room Air 97.9 Lab Values Laboratory Tests Test 02/10/17 14:45 02/10/17 15:08 Urine Collection Type Unknown Urine Color Yellow Urine Clarity Clear Urine pH 7.5 Urine Specific [place] 1.010 Urine Protein 30 mg/dL (NEG-TRACE) Urine Glucose (UA) Negative mg/dL (NEG) Urine Ketones (Stick) Negative mg/dL (NEG) Urine Blood Small (NEG) Urine Nitrite Negative (NEG) Urine Bilirubin Negative (NEG) Urine Urobilinogen Dipstick 0.2 mg/dL (0.2 mg/dL) Urine Leukocyte Esterase Negative (NEG) Urine RBC 6-10 /HPF (0-2) Urine WBC 0 /HPF (0-4) Urine Bacteria 0 /HPF (0-FEW) Urine Mucus Slight /LPF White Blood Count 8.7 x10^3/uL (4.0-11.0) Red Blood Count 5.02 x10^6/uL (4.30-5.70) Hemoglobin 13.8 g/dL (13.0-17.5) Hematocrit 40.7 % (39.0-53.0) Mean Corpuscular Volume 81 fL (79-100) Mean Corpuscular Hemoglobin 27 pg (25-35) Mean Corpuscular Hemoglobin Concent 34 g/dL (31-37) Red Cell Distribution Width 15.1 % (11.5-14.5) H Platelet Count 168 x10^3/uL (140-400) Neutrophils (%) (Auto) 75 % (31-73) H Lymphocytes (%) (Auto) 12 % (24-48) L Monocytes (%) (Auto) 10 % (0-9) H Eosinophils (%) (Auto) 3 % (0-3) Basophils (%) (Auto) 0 % (0-3) Neutrophils # (Auto) 6.5 x10^3uL (1.8-7.7) Lymphocytes # (Auto) 1.0 x10^3/uL (1.0-4.8) Monocytes # (Auto) 0.9 x10^3/uL (0.0-1.1) Eosinophils # (Auto) 0.2 x10^3/uL (0.0-0.7) Basophils # (Auto) 0.0 x10^3/uL (0.0-0.2) Sodium Level 140 mmol/L (136-145) Potassium Level 3.9 mmol/L (3.5-5.1) Chloride Level 100 mmol/L (98-107) Carbon Dioxide Level 36 mmol/L (21-32) H Anion Gap 4 (6-14) L Blood Urea Nitrogen 29 mg/dL (8-26) H Creatinine 1.3 mg/dL (0.7-1.3) Estimated GFR (Cockcroft-Gault) 54.1 BUN/Creatinine Ratio 22 (6-20) H Glucose Level 207 mg/dL (70-99) H Calcium Level 10.2 mg/dL (8.5-10.1) H Total Bilirubin 0.7 mg/dL (0.2-1.0) Aspartate Amino Transferase (AST) 35 U/L (15-37) Alanine Aminotransferase (ALT) 39 U/L (16-63) Alkaline Phosphatase 229 U/L (46-116) H Total Protein 7.1 g/dL (6.4-8.2) Albumin 3.4 g/dL (3.4-5.0) Albumin/Globulin Ratio 0.9 (1.0-1.7) L Lipase 158 U/L (73-393) Laboratory Tests 02/10/17 15:08 Laboratory Tests 02/10/17 15:08 EKG EKG [] Radiology/Procedures Radiology/Procedures [] Course & Med Decision Making Course & Med Decision Making Pertinent Labs and Imaging studies reviewed. (See chart for details) Signs and symptoms consistent with suspected intermittent colicky abdominal pain secondary to constipation. Patient's exam is reassuring with no focal tenderness. Full workup unremarkable except for incidental findings on CT which were discussed at length with patient and his . They were given a copy of the CT to follow up with the primary care doctor to discuss these incidental findings and arrange further workup definitive diagnosis and treatment as needed. Presumed etiology for crampy intermittent abdominal pain is constipation. Patient were to take Colace as prescribed as needed and use MiraLAX and mineral oil as well. He will follow up with primary care doctor tomorrow. No further workup or treatment indicated at this time patient and agree with outpatient follow-up and strict return precautions given [] Dragon Disclaimer Dragon Disclaimer This electronic medical record was generated, in whole or in part, using a voice recognition dictation system. Departure Departure Impression: Primary Impression: Constipation Additional Impression: Abdominal pain Disposition: 01 HOME, SELF-CARE Condition: GOOD Referrals: ISAAC GROSS MD (PCP) Patient Instructions: Abdominal Pain (Nonspecific), Constipation, Adult Additional Instructions: Your findings do not suggest that you have an abdominal emergency today. By your description it sounds as if you have constipation. Use miralax over-the- counter as well as drink mineral oil 30 mL twice a day as needed. Use Colace as prescribed as well. There are multiple incidental findings on your CAT scan today. Incidental findings are findings that don't have anything to do with your presentation today however were visible and observed on CAT scan so it's important that you know about them so you can arrange appropriate follow-up with her primary care doctor for further workup ,definitive diagnosis, and treatment as needed. Among these be where you have a 3 cm pulmonary nodule , this means a mass in the bottom of your left lung. This will require further workup and repeat imaging by your primary care doctor. It also appears that you have gallstones as well as a possible polyp in your gallbladder.You have bilateral adrenal nodules which means masses on your adrenal glands. These are nonspecific but will require acute imaging by your primary care doctor for definitive diagnosis. Return immediately for new severe or worsening symptoms Scripts Docusate Sodium (COLACE) 100 Mg Capsule 1 CAP PO BID Y for CONSTIPATION, #30 CAP Prov: ELE ELLIOTT MD 02/10/17 Problem Qualifiers ELE ELLIOTT MD Feb 10, 2017 18:03
== END 2017-02-10 18:22 | disposition home or self-care (01) ==
LOC: ER 14:14
DX: K59.00 Constipation, unspecified (principal); M19.90 Unspecified osteoarthritis, unspecified site; I10 Essential (primary) hypertension; I25.10 Atherosclerotic heart disease of native coronary artery without angina pectoris; Z88.0 Allergy status to penicillin; Z95.5 Presence of coronary angioplasty implant and graft; Z96.659 Presence of unspecified artificial knee joint; Z88.5 Allergy status to narcotic agent; Z88.8 Allergy status to other drugs, medicaments and biological substances
CPT/HCPCS: 36415; 74177; 80053; 81001; 83690; 85027; 96360; 99285; J7030; Q9967

== ENCOUNTER 2017-03-04 18:58 | Inpatient (IN) | payer MEDICARE ==
[~2017-03-04] VITALS: Ht 167.6 cm; Wt 82.6 kg
[~2017-03-04 18:58] MED LIST changes: +DOCU-109 PO
--- NOTE | 2017-03-04 19:56 | PHYS DOC ---
Past Medical History Past Medical History: Arthritis, CAD, Hypertension, Vascular Disease Past Surgical History: Coronary Bypass Surgery, Knee Replacement Additional Past Surgical Histo: carpal tunnel right, "lung cleaning", cardiac stents X 7, r thoracotomy Alcohol Use: None Drug Use: None Adult General Chief Complaint Chief Complaint: ABDOMINAL PAIN HPI HPI Patient is a 71 year old male with periumbilical, epigastric, and suprapubic pain for 1 month. today seems to be the worse and constant pain. He has increased pain after he eats, early satiety. he vomited "the other day" but hasn 't been vomiting most days. he has had decreased BM's but they are solid. no fever. he has lost 15 pounds over past month. Review of Systems Review of Systems Constitutional: Denies fever or chills [] Eyes: Denies change in visual acuity, redness, or eye pain [] HENT: Denies nasal congestion or sore throat [] Respiratory: Denies cough or shortness of breath [] Cardiovascular: No additional information not addressed in HPI [] GI: Denies abdominal pain, nausea, vomiting, bloody stools or diarrhea [] : Denies dysuria or hematuria [] Musculoskeletal: Denies back pain or joint pain [] Integument: Denies rash or skin lesions [] Neurologic: Denies headache, focal weakness or sensory changes [] Endocrine: Denies polyuria or polydipsia [] Current Medications Current Medications Current Medications Medications (Trade) Dose Ordered Sig/Logan Start Time Stop Time Status Last Admin Dose Admin Fentanyl Citrate (Fentanyl 2ml Vial) 50 mcg 1X ONCE 03/04/17 22:15 03/04/17 22:16 Info (Do NOT chart on this entry -- for MONITORING) 1 each PRN DAILY PRN 03/04/17 20:45 03/06/17 20:44 Iohexol (Omnipaque 300 Mg/ml) 75 ml 1X ONCE 03/04/17 20:30 03/04/17 20:31 DC 03/04/17 20:46 75 ML Multi-Ingredient Mouthwash/Gargle (Gi Cocktail Single Dose) 15 ml STK-MED ONCE 03/04/17 20:00 03/04/17 20:01 DC Ondansetron HCl (Zofran) 4 mg PRN Q8HRS PRN 03/04/17 21:45 03/05/17 21:44 Sodium Chloride 1,000 ml @ 100 mls/hr Q10H 03/04/17 21:45 03/05/17 21:44 Allergies Allergies Allergies Coded Allergies Type Severity Reaction Last Updated Verified Penicillins Allergy Intermediate 08/31/16 Yes morphine Allergy Intermediate "it does bad things" 06/21/15 Yes NSAIDS (Non-Steroidal Anti-Inflamma Adverse Reaction Severe AVOIDS DUE TO CHRONIC KIDNEY DISEASE 06/21/15 Yes Physical Exam Physical Exam Constitutional: Well developed, well nourished, no acute distress, non-toxic appearance. [] HENT: Normocephalic, atraumatic, bilateral external ears normal, oropharynx moist, no oral exudates, nose normal. [] Eyes: PERRLA, EOMI, conjunctiva normal, no discharge. [] Neck: Normal range of motion, no tenderness, supple, no stridor. [] Cardiovascular:Heart rate regular rhythm, no murmur [] Lungs & Thorax: Bilateral breath sounds clear to auscultation [] Abdomen: Bowel sounds normal, soft, tender in epigatric area more than suprapubic AND ruq. no tympanitic BS, no masses, no pulsatile masses. [] Skin: Warm, dry, no erythema, no rash. [] Back: No tenderness, no CVA tenderness. [] Extremities: No tenderness, no cyanosis, no clubbing, ROM intact, no edema. [] Neurologic: Alert and oriented X 3, normal motor function, normal sensory function, no focal deficits noted. [] Psychologic: Affect normal, judgement normal, mood normal. [] Current Patient Data Vital Signs Vital Signs Date Time Temp Pulse Resp B/P (MAP) Pulse Ox O2 Delivery O2 Flow Rate FiO2 03/04/17 19:18 97.8 80 16 182/99 (126) 96 Room Air 97.8 Lab Values Laboratory Tests Test 03/04/17 19:11 03/04/17 21:00 White Blood Count 10.2 x10^3/uL (4.0-11.0) Red Blood Count 5.75 x10^6/uL (4.30-5.70) H Hemoglobin 15.6 g/dL (13.0-17.5) Hematocrit 46.8 % (39.0-53.0) Mean Corpuscular Volume 81 fL (79-100) Mean Corpuscular Hemoglobin 27 pg (25-35) Mean Corpuscular Hemoglobin Concent 33 g/dL (31-37) Red Cell Distribution Width 15.5 % (11.5-14.5) H Platelet Count 211 x10^3/uL (140-400) Neutrophils (%) (Auto) 75 % (31-73) H Lymphocytes (%) (Auto) 12 % (24-48) L Monocytes (%) (Auto) 10 % (0-9) H Eosinophils (%) (Auto) 3 % (0-3) Basophils (%) (Auto) 1 % (0-3) Neutrophils # (Auto) 7.6 x10^3uL (1.8-7.7) Lymphocytes # (Auto) 1.2 x10^3/uL (1.0-4.8) Monocytes # (Auto) 1.0 x10^3/uL (0.0-1.1) Eosinophils # (Auto) 0.3 x10^3/uL (0.0-0.7) Basophils # (Auto) 0.1 x10^3/uL (0.0-0.2) Sodium Level 138 mmol/L (136-145) Potassium Level 4.5 mmol/L (3.5-5.1) Chloride Level 96 mmol/L (98-107) L Carbon Dioxide Level 36 mmol/L (21-32) H Anion Gap 6 (6-14) Blood Urea Nitrogen 23 mg/dL (8-26) Creatinine 1.3 mg/dL (0.7-1.3) Estimated GFR (Cockcroft-Gault) 54.1 BUN/Creatinine Ratio 18 (6-20) Glucose Level 239 mg/dL (70-99) H Calcium Level 9.8 mg/dL (8.5-10.1) Total Bilirubin 0.9 mg/dL (0.2-1.0) Aspartate Amino Transferase (AST) 47 U/L (15-37) H Alanine Aminotransferase (ALT) 46 U/L (16-63) Alkaline Phosphatase 217 U/L (46-116) H Total Protein 7.3 g/dL (6.4-8.2) Albumin 3.9 g/dL (3.4-5.0) Albumin/Globulin Ratio 1.1 (1.0-1.7) Urine Collection Type Unknown Urine Color Yellow Urine Clarity Clear Urine pH 5.5 Urine Specific [place] 1.020 Urine Protein 100 mg/dL (NEG-TRACE) Urine Glucose (UA) Negative mg/dL (NEG) Urine Ketones (Stick) Negative mg/dL (NEG) Urine Blood Moderate (NEG) Urine Nitrite Negative (NEG) Urine Bilirubin Negative (NEG) Urine Urobilinogen Dipstick 0.2 mg/dL (0.2 mg/dL) Urine Leukocyte Esterase Negative (NEG) Urine RBC 1-2 /HPF (0-2) Urine WBC 0 /HPF (0-4) Urine Squamous Epithelial Cells Occ /LPF Urine Transitional Epithelial Cells Occ /LPF Urine Bacteria 0 /HPF (0-FEW) Urine Hyaline Casts Moderate /HPF Urine Mucus Mod /LPF Laboratory Tests 03/04/17 19:11 Laboratory Tests 03/04/17 19:11 EKG EKG Time:1914 HR 80 LBBB no stemi Radiology/Procedures Radiology/Procedures ct shows cholelithiasis and unchanged from previous CT Course & Med Decision Making Course & Med Decision Making will admit and have GI consult. pt has lost 15 pounds over past month. he has no appetite and pain when he does eat [] Dragon Disclaimer Dragon Disclaimer This electronic medical record was generated, in whole or in part, using a voice recognition dictation system. Departure Departure Impression: Primary Impression: Cholelithiasis Disposition: ADMITTED INPATIENT Admitting Physician: Iveth Rojas Condition: STABLE Referrals: ISAAC GROSS MD (PCP) MARTI KHAN MD Mar 04, 2017 19:56
[2017-03-04] MEDS ORDERED: LIDO:MAALOX:DONNATAL 1:1:1 15 ML SINGLE DOSE SWSW ONE (20:00)
[2017-03-04] MEDS ORDERED: LIDO:MAALOX:DONNATAL 1:1:1 15 ML SINGLE DOSE ONE (20:00)
[2017-03-04 20:04] LABS: BASO # 0.1 x10^3/uL (0.0-0.2); BASO % 1 % (0-3); EOS % 3 % (0-3); HEMATOCRIT 46.8 % (39.0-53.0); HEMOGLOBIN 15.6 g/dL (13.0-17.5); LYMPH # 1.2 x10^3/uL (1.0-4.8); LYMPH % 12 % (24-48); MEAN CORPUSCULAR HEMOGLOBIN 27 pg (25-35); MEAN CORPUSCULAR HGB CONC 33 g/dL (31-37); MEAN CORPUSCULAR VOLUME 81 fL (79-100); MONO % 10 % (0-9); NEUT % 75 % (31-73); PLATELET COUNT 211 x10^3/uL (140-400); RED BLOOD COUNT 5.75 x10^6/uL (4.30-5.70); RED CELL DISTRIBUTION WIDTH 15.5 % (11.5-14.5); WHITE BLOOD COUNT 10.2 x10^3/uL (4.0-11.0)
[2017-03-04 20:20] LABS: CALCIUM 9.8 mg/dL (8.5-10.1); CREATININE 1.3 mg/dL (0.7-1.3); GFR 54.1; POTASSIUM 4.5 mmol/L (3.5-5.1)
[2017-03-04 20:26] LABS: ALBUMIN 3.9 g/dL (3.4-5.0); ALBUMIN/GLOBULIN RATIO 1.1 (1.0-1.7); TOTAL BILIRUBIN 0.9 mg/dL (0.2-1.0); TOTAL PROTEIN 7.3 g/dL (6.4-8.2)
[2017-03-04] MEDS ORDERED: IOHEXOL 300 MG/ML 75 ML VIAL IV ONE (20:30)
[2017-03-04] MEDS ORDERED: IV NORMAL SALINE 500ML BAG 500 ML IV ONE (20:45)
[2017-03-04] MEDS ORDERED: CONTRAST GIVEN MC PRN (20:45)
[2017-03-04 21:09] LABS: BILIRUBIN,URINE NEGATIVE (NEG); GLUCOSE,URINE NEGATIVE (NEG); NITRITE,URINE NEGATIVE (NEG); PH,URINE 5.5; PROTEIN,URINE 100 mg/dL (NEG-TRACE); UROBILINOGEN,URINE 0.2 mg/dL (0.2 mg/dL)
--- NOTE | 2017-03-04 21:14 | RAD ---
CT abdomen and pelvis with contrast History: Epigastric and periumbilical pain for one month Technique: After the administration of intravenous contrast, CT imaging was performed of the abdomen and pelvis. No oral contrast was given as per request. Multiplanar images are reviewed. Exposure: One or more of the following individualized dose reduction techniques were utilized for this examination: 1. Automated exposure control 2. Adjustment of the mA and/or kV according to patient size 3. Use of iterative reconstruction technique. Contrast: 60 cc Omnipaque 300 Comparison: 02/10/2017 Findings: There is again pleural thickening most notable on the left lung base. There is a persistent round focus of density abutting pleural surface of the left lower lobe unchanged in the short-term interval at 2 approximately 3.4 cm maximal dimension. There is no new focal abnormality of the liver, spleen, pancreas. There is again cholelithiasis. There is again slightly nodular margin of the liver. Both kidneys enhance, no hydronephrosis. There is again accessory spleen. There is again mild splenomegaly. There is again fullness or small nodules of the bilateral adrenal glands. Some borderline left para-aortic lymph nodes are similar in the short interval. There is heterogeneity of the spleen although may be due to differential perfusion there are exam, difficult to exclude underlying masses. There is again nonspecific soft tissue nodule of the right lateral chest wall up to 1 cm short axis dimension. There is again grade 1 anterior spondylolisthesis L5-S1 due to bilateral L5 spondylolysis. There is degenerative disc disease greatest at L5-S1. There is spondylosis greatest at L4-5 and L5-S1. There is severe bilateral L5-S1 neural foramina compromise, also significant narrowing on the right at L4-5 and bilaterally at L1-2. There is suspected moderate spinal stenosis at L4-5, likely [id number] spinal stenosis at L3-4. There is degenerative change of the bilateral hips. Accurate evaluation of bowel is limited without oral contrast. There is retained stool greatest of the ascending colon. The appendix is difficult to clearly identify. Impression: 1. Findings are similar comparing with the recent exam. There is again cholelithiasis. There again may be hepatic cirrhosis, no free fluid. There is again mild splenomegaly, some heterogeneity of the spleen which may be due to differential in perfusion although underlying masses not excludable by this or previous exam. 2. There is again left base pleural thickening, persistent focus of abnormal density which could be due to round atelectasis although underlying mass or round pneumonia again possibilities. 3. There is degenerative disc disease and spondylosis greatest at L4-5 and L5-S1. There is multilevel significant lumbar neural foramina compromise. 4. There is retained stool greatest of the ascending and proximal transverse colon. Electronically signed by: Nisl Banuelos MD (03/04/2017 9:11 PM) [facility]
[2017-03-04 21:15] LABS: BACTERIA,URINE 0 /HPF (0-FEW); SQUAMOUS EPITHELIAL CELL,UR OCC /LPF; WBC,URINE 0 /HPF (0-4)
[2017-03-04] MEDS ORDERED: ONDANSETRON PF 4 MG/2 ML VIAL. IV PRN (21:45)
[2017-03-04] MEDS ORDERED: IV NORMAL SALINE 1000ML BAG 1,000 ML IV SCH (21:45)
[2017-03-04] MEDS ORDERED: fentaNYL PF VIAL 100 MCG/2 ML VIAL IV PRN (21:45)
[2017-03-04] MEDS ORDERED: fentaNYL PF VIAL 100 MCG/2 ML VIAL IV ONE (22:15)
[2017-03-04 22:45] VITALS: BP 141/79
[2017-03-04] MEDS ORDERED: DOCUSATE SODIUM 100 MG CAPSULE. PO PRN (22:45)
[2017-03-04] MEDS ORDERED: DEXTROSE 50% 25 GM / 50ML DISP.SYRIN. IV PRN (22:45)
[2017-03-04] MEDS ORDERED: oxyCODONE/APAP 5/325 1 TAB TABLET PO PRN (22:45)
[2017-03-04] MEDS ORDERED: ACETAMINOPHEN 500 MG TABLET PO PRN (22:45)
[2017-03-04] MEDS: INSULIN ASPART 300 UNITS/3 ML INSULN.PEN SQ SCH (23:00)
[2017-03-04] MEDS ORDERED: INSULIN DETEMIR 300 UNITS/3 ML INSULN.PEN. SQ SCH (23:00)
--- NOTE | 2017-03-04 23:09 | PDOC1 ---
History and Physical Date of Admission Date of Admission DATE: 03/04/17 TIME: 23:02 Identification/Chief Complaint Chief Complaint abd pain Problems: Source Source: Chart review, Patient History of Present Illness History of Present Illness MR Roland, is a 71 year old male w/ prominent Cardiac hx, admit tonight from ER for subacute abd pain, worsening over weeks. He complains of periumbilical, epigastric, and suprapubic pain for weeks. Pain is worst today, and worse after meals, he has a poor appetite due to abd pain, and has not been eating much for weeks due to pain, and has lost 15 lbs. He has only vomited once, and stools are normal, he does not complain of nausea pain is improved now, < 5/10, but he feels it would worsened if he ate. PCP is Joni Boss Past Medical History Cardiovascular: CAD, CHF, HTN, Hyperlipidemia Pulmonary: Other CENTRAL NERVOUS SYSTEM: Other GI: GERD, Hemorrhoids Heme/Onc: Anemia NOS Hepatobiliary: No pertinent hx Psych: No pertinent hx Musculoskeletal: Other Rheumatologic: Gout Infectious disease: Other Renal/: Chronic renal insuff Endocrine: Diabetes Past Surgical History Past Surgical History: Pacemaker, CABG, Total knee replacement, Other Family History Family History: Heart Disease Social History Smoke: No ALCOHOL: none Drugs: None Current Problem List Problem List Problems Medical Problems: (1) Cholelithiasis Status: Acute Problems: Current Medications Current Medications Current Medications Multi-Ingredient Mouthwash/Gargle (Gi Cocktail Single Dose) 15 ml 1X ONCE SWSW Last administered on 03/04/17 20:02; Start 03/04/17 at 20:00; Stop 03/04/17 at 20:01; Status DC Multi-Ingredient Mouthwash/Gargle (Gi Cocktail Single Dose) 15 ml STK-MED ONCE .ROUTE ; Start 03/04/17 at 20:00; Stop 03/04/17 at 20:01; Status DC Iohexol (Omnipaque 300 Mg/ml) 75 ml 1X ONCE IV Last administered on 03/04/17 20:46; Start 03/04/17 at 20:30; Stop 03/04/17 at 20:31; Status DC Info (Do NOT chart on this entry -- for MONITORING) 1 each PRN DAILY PRN MC SEE COMMENTS; Start 03/04/17 at 20:45; Stop 03/06/17 at 20:44 Sodium Chloride 500 ml @ 500 mls/hr 1X ONCE IV Last administered on t 21:00; Start 03/04/17 at 20:45; Stop 03/04/17 at 21:44; Status DC Ondansetron HCl (Zofran) 4 mg PRN Q8HRS PRN IV NAUSEA/VOMITING; Start 03/04/17 at 21:45; Stop 03/05/17 at 21:44 Fentanyl Citrate (Fentanyl 2ml Vial) 50 mcg PRN Q1HR PRN IV PAIN; Start at 21:45; Stop 03/05/17 at 21:44 Sodium Chloride 1,000 ml @ 100 mls/hr Q10H IV ; Start 03/04/17 at 21:45; Stop 03/05/17 at 21:44 Fentanyl Citrate (Fentanyl 2ml Vial) 50 mcg 1X ONCE IV ; Start 03/04/17 at 22: 15; Stop 03/04/17 at 22:16; Status DC Acetaminophen (Tylenol) 500 mg PRN Q12HR PRN PO PAIN; Start 03/04/17 at 22:45 Allopurinol (Zyloprim) 100 mg QHS PO ; Start 03/05/17 at 21:00 Aspirin (Children'S Aspirin) 81 mg DAILY PO ; Start 03/05/17 at 09:00 Docusate Sodium (Colace) 100 mg PRN BID PRN PO CONSTIPATION; Start 03/04/17 at 22:45 Guaifenesin (MUCINEX ER with DM) 1 tab QHS PO ; Start 03/05/17 at 21:00 Metolazone (Zaroxolyn) 5 mg DAILY PO ; Start 03/05/17 at 09:00 Oxycodone/ Acetaminophen (Percocet 5/325) 1 tab PRN Q4HRS PRN PO pain; Start at 22:45 Simvastatin (Zocor) 20 mg HS PO ; Start 03/05/17 at 21:00 Warfarin Sodium (Coumadin) 5 mg DAILY16 PO ; Start 03/05/17 at 16:00 Non-Formulary Medication 1 tab QFR PO ; Start 03/08/17 at 16:00; Status UNV Bumetanide (Bumex) 2 mg DAILYWBKFT PO ; Start 03/05/17 at 08:00 Vitamin D (Vitamin D3) 3,000 unit DAILY PO ; Start 03/05/17 at 09:00 Insulin Detemir (Levemir) 20 units HS SQ ; Start 03/04/17 at 23:00 Multivitamins (Thera M Plus) 1 tab DAILY PO ; Start 03/05/17 at 09:00 Potassium Chloride (Klor-Con) 20 meq DAILY PO ; Start 03/05/17 at 09:00 Non-Formulary Medication 150 mg BIDAC PO ; Start 03/05/17 at 07:30; Status UNV Linagliptin (Tradjenta) 5 mg DAILYWBKFT PO ; Start 03/05/17 at 08:00 Insulin Aspart (NovoLOG) 0-9 UNITS QIDACHS SQ ; Start 03/04/17 at 23:00 Dextrose (Dextrose 50%-Water Syringe) 12.5 gm PRN Q15MIN PRN IV SEE COMMENTS; Start 03/04/17 at 22:45 Active Scripts Active Colace (Docusate Sodium) 100 Mg Capsule 1 Cap PO BID PRN Metolazone 2.5 Mg Tablet 5 Mg PO DAILY Reported Multi Vitamin Daily (Multivitamin) 1 Each Tablet 1 Each PO DAILY Vitamin D (Cholecalciferol (Vitamin D3)) 2,000 Unit Tablet 3,000 Unit PO DAILY Tylenol Extra Strength (Acetaminophen) 500 Mg Tablet 500 Mg PO PRN Q12HR PRN Augmentin 875-125 Tablet (Amoxicillin/Potassium Clav) 1 Each Tablet 1 Tab PO BID Mucinex Dm Er 600-30 Mg Tablet (Guaifenesin/Dextromethorphan) 1 Each Tab.er.12h 20-400 Each PO QHS Warfarin Sodium 2.5 Mg Tablet 2.5 Mg PO QSU Warfarin Sodium 5 Mg Tablet 5 Mg PO DAILY Potassium Chloride 20 Meq Tablet.er 20 Meq PO DAILY Alendronate Sodium 70 Mg Tablet 1 Tab PO QFR Percocet 5-325 Mg Tablet (Oxycodone/Acetaminophen) 1 Each Tablet 1-2 Tab PO Q4- 6HRS Levemir (Insulin Detemir) 100 Unit/1 Ml Vial 20 Unit SQ HS LAST DOSE GIVEN: DATE:06-23-15 TIME:9:00 p.m. NEXT DOSE DUE: DATE:06-24-15 TIME:9:00 p.m. Simvastatin 20 Mg Tablet 20 Mg PO HS LAST DOSE GIVEN: DATE:06-23-15 TIME:9:00 p.m. NEXT DOSE DUE: DATE:06-24-15 TIME:9:00 p.m. Bumetanide 2 Mg Tablet 2 Mg PO DAILYWBKFT LAST DOSE GIVEN: DATE:06-24-15 TIME:8:30 a.m. NEXT DOSE DUE: DATE:06-25-15 TIME:8:30 a.m. Aspirin 81 Mg Tab.chew 81 Mg PO LAST DOSE GIVEN: DATE:06-24-15 TIME:8:30 a.m. NEXT DOSE DUE: DATE:06-25-15 TIME:8:30 a.m. Januvia (Sitagliptin Phosphate) 100 Mg Tablet 100 Mg PO DAILYWBKFT Not taken while in hosp. May resume at home as directed Allopurinol 100 Mg Tablet 100 Mg PO QHS LAST DOSE GIVEN: DATE: 06/23 TIME: 5 pm NEXT DOSE DUE: DATE: 06/24 TIME: 5 pm Ranitidine Hcl 150 Mg Tablet 150 Mg PO BIDAC LAST DOSE GIVEN: DATE:06-24-15 TIME:8:30 a.m. NEXT DOSE DUE: DATE:06-24-15 TIME: 5:00 p.m. Allergies Allergies: Coded Allergies: Penicillins (Verified Allergy, Intermediate, 08/31/16) Tolerates amoxicillin morphine (Verified Allergy, Intermediate, "it does bad things", 06/21/15) NSAIDS (Non-Steroidal Anti-Inflamma (Verified Adverse Reaction, Severe, AVOIDS DUE TO CHRONIC KIDNEY DISEASE, 06/21/15) ROS General: No: Chills, Night Sweats, Fatigue, Malaise, Appetite, Other PSYCHOLOGICAL ROS: No: Anxiety, Behavioral Disorder, Concentration difficultie , Decreased libido, Depression, Disorientation, Hallucinations, Hostility, Irritablity, Memory difficulties, Mood Swings, Obsessive thoughts, Other Eyes: No Blurry vision, No Decreased vision, No Double vision, No Dry eyes, No Excessive tearing, No Eye Pain, No Itchy Eyes, No Loss of vision, No Photophobia , No Scotomata, No Uses contacts, No Uses glasses, No Other HEENT: No: Heacaches, Visual Changes, Hearing change, Nasal congestion, Nasal discharge, Oral lesions, Sinus pain, Sore Throat, Epistaxis, Sneezing, Snoring, Tinnitus, Vertigo, Vocal changes, Other Respiratory: No: Cough, Hemoptysis, Orthopnea, Pleuritic Pain, Shortness of breath, SOB with excertion, Sputum Changes, Stridor, Tachypnea, Wheezing, Other Cardiovascular: No Chest Pain, No Palpitations, No Orthopnea, No Paroxysmal Noc. Dyspnea, No Edema, No Lt Headedness, No Other Gastrointestinal: Yes Abdominal Pain, No Diarrhea, No Constipation, No Melena, No Hematochezia, No Other Genitourinary: No Dysuria, No Frequency, No Incontinence, No Hematuria, No Retention, No Discharge, No Urgency, No Pain, No Flank Pain, No Other, No , No , No , No , No , No , No Musculoskeletal: No Gait Disturbance, No Joint Pain, No Joint Stiffness, No Joint Swelling, No Muscle Pain, No Muscular Weakness, No Pain In:, No Swelling In:, No Other Neurological: No Behavorial Changes, No Bowel/Bladder ControlChng, No Confusion , No Dizziness, No Gait Disturbance, No Headaches, No Impaired Coord/balance, No Memory Loss, No Numbness/Tingling, No Seizures, No Speech Problems, No Tremors, No Visual Changes, No Weakness, No Other Skin: No Dry Skin, No Eczema, No Hair Changes, No Lumps, No Mole Changes, No Mottling, No Nail Changes, No Pruritus, No Rash, No Skin Lesion Changes, No Other, No Acne Physical Exam General: Alert, Oriented X3, Cooperative, No acute distress HEENT: Atraumatic, PERRLA, EOMI, Mucous membr. moist/pink Lungs: Clear to auscultation Heart: S1S2, no murmurs Abdomen: Normal bowel sounds, Soft, Other (tender diffusely, lower both quadrants, TTP, mild pritchett, no guarding, ) Rectal Exam: not examined Extremities: No cyanosis, No edema, Normal pulses Skin: No significant lesion Neuro: Normal speech, Strength at 5/5 X4 ext, Normal tone, Sensation intact Psych/Mental Status: Mental status NL, Mood NL Vitals Vitals Vital Signs Date Time Temp Pulse Resp B/P (MAP) Pulse Ox O2 Delivery O2 Flow Rate FiO2 03/04/17 22:08 80 20 174/95 (121) 94 Room Air 03/04/17 19:18 97.8 97.8 Labs Labs Laboratory Tests Test 03/04/17 19:11 03/04/17 21:00 White Blood Count 10.2 x10^3/uL (4.0-11.0) Red Blood Count 5.75 x10^6/uL (4.30-5.70) Hemoglobin 15.6 g/dL (13.0-17.5) Hematocrit 46.8 % (39.0-53.0) Mean Corpuscular Volume 81 fL (79-100) Mean Corpuscular Hemoglobin 27 pg (25-35) Mean Corpuscular Hemoglobin Concent 33 g/dL (31-37) Red Cell Distribution Width 15.5 % (11.5-14.5) Platelet Count 211 x10^3/uL (140-400) Neutrophils (%) (Auto) 75 % (31-73) Lymphocytes (%) (Auto) 12 % (24-48) Monocytes (%) (Auto) 10 % (0-9) Eosinophils (%) (Auto) 3 % (0-3) Basophils (%) (Auto) 1 % (0-3) Neutrophils # (Auto) 7.6 x10^3uL (1.8-7.7) Lymphocytes # (Auto) 1.2 x10^3/uL (1.0-4.8) Monocytes # (Auto) 1.0 x10^3/uL (0.0-1.1) Eosinophils # (Auto) 0.3 x10^3/uL (0.0-0.7) Basophils # (Auto) 0.1 x10^3/uL (0.0-0.2) Sodium Level 138 mmol/L (136-145) Potassium Level 4.5 mmol/L (3.5-5.1) Chloride Level 96 mmol/L (98-107) Carbon Dioxide Level 36 mmol/L (21-32) Anion Gap 6 (6-14) Blood Urea Nitrogen 23 mg/dL (8-26) Creatinine 1.3 mg/dL (0.7-1.3) Estimated GFR (Cockcroft-Gault) 54.1 BUN/Creatinine Ratio 18 (6-20) Glucose Level 239 mg/dL (70-99) Calcium Level 9.8 mg/dL (8.5-10.1) Total Bilirubin 0.9 mg/dL (0.2-1.0) Aspartate Amino Transf (AST/SGOT) 47 U/L (15-37) Alanine Aminotransferase (ALT/SGPT) 46 U/L (16-63) Alkaline Phosphatase 217 U/L (46-116) Total Protein 7.3 g/dL (6.4-8.2) Albumin 3.9 g/dL (3.4-5.0) Albumin/Globulin Ratio 1.1 (1.0-1.7) Urine Collection Type Unknown Urine Color Yellow Urine Clarity Clear Urine pH 5.5 Urine Specific [place] 1.020 Urine Protein 100 mg/dL (NEG-TRACE) Urine Glucose (UA) Negative mg/dL (NEG) Urine Ketones (Stick) Negative mg/dL (NEG) Urine Blood Moderate (NEG) Urine Nitrite Negative (NEG) Urine Bilirubin Negative (NEG) Urine Urobilinogen Dipstick 0.2 mg/dL (0.2 mg/dL) Urine Leukocyte Esterase Negative (NEG) Urine RBC 1-2 /HPF (0-2) Urine WBC 0 /HPF (0-4) Urine Squamous Epithelial Cells Occ /LPF Urine Transitional Epithelial Cells Occ /LPF Urine Bacteria 0 /HPF (0-FEW) Urine Hyaline Casts Moderate /HPF Urine Mucus Mod /LPF Laboratory Tests Test 03/04/17 19:11 03/04/17 21:00 White Blood Count 10.2 x10^3/uL (4.0-11.0) Red Blood Count 5.75 x10^6/uL (4.30-5.70) Hemoglobin 15.6 g/dL (13.0-17.5) Hematocrit 46.8 % (39.0-53.0) Mean Corpuscular Volume 81 fL (79-100) Mean Corpuscular Hemoglobin 27 pg (25-35) Mean Corpuscular Hemoglobin Concent 33 g/dL (31-37) Red Cell Distribution Width 15.5 % (11.5-14.5) Platelet Count 211 x10^3/uL (140-400) Neutrophils (%) (Auto) 75 % (31-73) Lymphocytes (%) (Auto) 12 % (24-48) Monocytes (%) (Auto) 10 % (0-9) Eosinophils (%) (Auto) 3 % (0-3) Basophils (%) (Auto) 1 % (0-3) Neutrophils # (Auto) 7.6 x10^3uL (1.8-7.7) Lymphocytes # (Auto) 1.2 x10^3/uL (1.0-4.8) Monocytes # (Auto) 1.0 x10^3/uL (0.0-1.1) Eosinophils # (Auto) 0.3 x10^3/uL (0.0-0.7) Basophils # (Auto) 0.1 x10^3/uL (0.0-0.2) Sodium Level 138 mmol/L (136-145) Potassium Level 4.5 mmol/L (3.5-5.1) Chloride Level 96 mmol/L (98-107) Carbon Dioxide Level 36 mmol/L (21-32) Anion Gap 6 (6-14) Blood Urea Nitrogen 23 mg/dL (8-26) Creatinine 1.3 mg/dL (0.7-1.3) Estimated GFR (Cockcroft-Gault) 54.1 BUN/Creatinine Ratio 18 (6-20) Glucose Level 239 mg/dL (70-99) Calcium Level 9.8 mg/dL (8.5-10.1) Total Bilirubin 0.9 mg/dL (0.2-1.0) Aspartate Amino Transf (AST/SGOT) 47 U/L (15-37) Alanine Aminotransferase (ALT/SGPT) 46 U/L (16-63) Alkaline Phosphatase 217 U/L (46-116) Total Protein 7.3 g/dL (6.4-8.2) Albumin 3.9 g/dL (3.4-5.0) Albumin/Globulin Ratio 1.1 (1.0-1.7) Urine Collection Type Unknown Urine Color Yellow Urine Clarity Clear Urine pH 5.5 Urine Specific [place] 1.020 Urine Protein 100 mg/dL (NEG-TRACE) Urine Glucose (UA) Negative mg/dL (NEG) Urine Ketones (Stick) Negative mg/dL (NEG) Urine Blood Moderate (NEG) Urine Nitrite Negative (NEG) Urine Bilirubin Negative (NEG) Urine Urobilinogen Dipstick 0.2 mg/dL (0.2 mg/dL) Urine Leukocyte Esterase Negative (NEG) Urine RBC 1-2 /HPF (0-2) Urine WBC 0 /HPF (0-4) Urine Squamous Epithelial Cells Occ /LPF Urine Transitional Epithelial Cells Occ /LPF Urine Bacteria 0 /HPF (0-FEW) Urine Hyaline Casts Moderate /HPF Urine Mucus Mod /LPF VTE Prophylaxis Ordered VTE Prophylaxis Devices: Yes VTE Pharmacological Prophylaxi: No Assessment/Plan Assessment/Plan subacute abd pain, worsening, with weight loss GERD, cholelithiasis are possible, CT scan showed stones consult GI, gen surg, check US pain control OK CAD, CHF, htn, home meds DM2, add SSI, VARGHESE KUMAR MD Mar 04, 2017 23:09
[2017-03-05 03:24] VITALS: BP 137/82
[2017-03-05 04:22] LABS: BASO # 0.1 x10^3/uL (0.0-0.2); BASO % 1 % (0-3); EOS % 3 % (0-3); HEMOGLOBIN 14.4 g/dL (13.0-17.5); LYMPH % 12 % (24-48); MEAN CORPUSCULAR HEMOGLOBIN 27 pg (25-35); MEAN CORPUSCULAR HGB CONC 34 g/dL (31-37); MEAN CORPUSCULAR VOLUME 81 fL (79-100); MONO % 10 % (0-9); NEUT % 74 % (31-73); PLATELET COUNT 180 x10^3/uL (140-400); RED CELL DISTRIBUTION WIDTH 15.7 % (11.5-14.5); WHITE BLOOD COUNT 8.1 x10^3/uL (4.0-11.0)
--- NOTE | 2017-03-05 04:26 | ACF ---
Admission Forms Criteria ABDOMINAL PAIN Clinical Indications for Admission to Inpatient Care (Place 'X' for any and all applicable criteria): Admission is indicated for ANY ONE of the following(1)(2)(3)(4)(5): [X]I. Inpatient admission required rather than observation care (Also use Abdominal Pain: Observation Care, as appropriate) because of ANY ONE of the following: [ ]a) Severe pain requiring acute inpatient management [X]b) Identification of etiology/finding that requires inpatient care (eg, aortic dissection, free air) [ ]c) Absent bowel sounds with complete ileus(6) [ ]d) Suspected toxic megacolon [ ]e) Severe electrolyte abnormalities requiring inpatient care [ ]f) High fever or infection requiring inpatient admission as indicated by ANY ONE of following(7)(8): [ ] i) Appropriate outpatient or observational care antimicrobial treatment unavailable, not effective, or not feasible [ ] ii) Documented bacteremia [ ] iii) Temperature > 104.9 degrees F (oral) [ ] iv) T >103.1 F (oral) or < 96.8 F(rectal) that does not respond to all emergency treatment measures [ ]g) Signs of intestinal obstruction [B] [ ]h) Hemodynamic instability [ ]i) IV fluid to replace significant ongoing losses (greater than 3 L/m2 per day) (12)(13) [ ]j) Percutaneous or open drainage (eg, abscess, biliary tract ) procedures [ ]k) Parenteral nutrition regimen that must be implemented on inpatient basis [ ]l) Other condition,treatment or monitoring requiring inpatient admission. [ ]II. Peritoneal signs present [ ]III. Surgery needed that cannot be performed on an ambulatory basis. [ ]IV. Evaluation requires patient to not eat or drink for extended period ( eg, more than 24 hours). [ ]V. Contraindications and/or Inappropriate clinical situations for Observational Care in patients with abdominal pain, when ANY ONE of the following is required: [ ]a) Thorough evaluation is required to prevent catastrophic events due to delays in diagnosing (e.g.Mesenteric ischemia) 1,3 [ ]b) Patient with severe pathology or with chronic symptoms unlikely to improve in the ED stay (3) [ ]. General contraindications and/or Inappropriate clinical situations for Observational Care in patients with abdominal pain, when ANY ONE of the following is required: [ ]a) Prediction of prolongation of LOS based on ANY ONE of the following may be considered as a contraindication for observational care 2, 3, 4, 5, 6, 7, 8, 9, 10, 11 [ ]i) Age > 65 yrs. [ ]ii) Patient arriving by ambulance [ ]iii) Patient with high acuity [ ]iv) Patient requiring vital sign monitoring [ ]v) Patient on IV medication [ ]b) Systolic blood pressures 180mmHg 3,12 [ ]c) Patient with altered mental status including delirium and other alteration of consciousness, (3) [ ]d) Patient whose discharge disposition will be to a penitentiary home or rehabilitation home should not be managed in Emergency Department Observation Unit. CMS rule requires 3 days hospital stay before such placement.3,13 [ ]e) Patient with failure to thrive due to broad array of etiologies 3,16,17 [ ]f) Inability to ambulate 3,14 Extended stay beyond goal length of stay may be needed for(2)(3): [ ]a) Persistent abdominal pain with suspected intra-abdominal process [ ]b) Diagnosed condition requiring continued stay (e.g., pancreatitis, complicated diverticulitis) [ ]c) Surgery (e.g., colectomy) The original [facility] content created by [employer] has been revised. The portions of the content which have been revised are identified through the use of italic text or in bold, and [facility] has neither reviewed nor approved the modified material.All other unmodified content is copyright [facility]. Please see references footnoted in the original [facility] edition 2016 Admission Criteria Met?: Yes GILL WHITTINGTON Mar 05, 2017 04:26 MARTI KHAN MD Mar 05, 2017 06:07
[2017-03-05 04:44] LABS: ALBUMIN 3.2 g/dL (3.4-5.0); ALBUMIN/GLOBULIN RATIO 0.9 (1.0-1.7); CREATININE 1.2 mg/dL (0.7-1.3); GFR 59.3; POTASSIUM 4.1 mmol/L (3.5-5.1); TOTAL BILIRUBIN 0.8 mg/dL (0.2-1.0); TOTAL PROTEIN 6.6 g/dL (6.4-8.2)
[2017-03-05 04:49] LABS: CHOLESTEROL/HDL RATIO 3.1
[2017-03-05 07:00] VITALS: BP 129/74
[2017-03-05] MEDS: INSULIN ASPART 300 UNITS/3 ML INSULN.PEN SQ SCH ×2 (07:30→12:51)
[2017-03-05] MEDS ORDERED: FAMOTIDINE 20 MG TABLET. PO SCH (07:30)
--- NOTE | 2017-03-05 07:32 | RAD ---
Abdominal ultrasound, 03/04/2017: History: Right upper quadrant pain The gallbladder is within normal limits in size. There is a small fixed echogenic focus along the posterior wall of the gallbladder without posterior acoustic shadowing. The appearance is compatible with a polyp. This density measures 8 mm. There is an additional tiny echogenic focus along the anterior wall of the gallbladder without posterior acoustic shadowing. There is a tiny echogenic focus in the gallbladder neck without definite posterior acoustic shadowing. This appears to correspond to the small density seen on the recent CT study. A tiny calculus is suspected. The gallbladder joseph are not thickened. No pericholecystic edema is seen. The common hepatic duct is of normal caliber. There is no evidence of a hepatic mass. The pancreas was largely obscured by overlying bowel. The spleen is at the upper limits of normal in size measuring 13 cm in length. No renal abnormality is detected. There is aortic atherosclerosis without evidence of aneurysm. The visualized portions of inferior vena cava are unremarkable. No free fluid is evident in the abdomen. IMPRESSION: 1. Small gallbladder polyps. 2. Probable tiny calculus in the gallbladder neck. 3. Borderline splenomegaly
[2017-03-05] MEDS ORDERED: BUMETANIDE 1 MG TABLET. PO SCH (08:00)
[2017-03-05] MEDS ORDERED: LINAGLIPTIN 5 MG TABLET PO SCH (08:00)
--- NOTE | 2017-03-05 08:34 | EKG ---
[facility] [address] [place] [address] Test Date: 2017-03-04 Test Time: 19:14:28 Pat Name: ELENI HALL Department: Room: [facility] Gender: M Rink Rat: : 1945 Requested By: VARGHESE KUMAR Order Number: [id number] Reading MD: Shahab Schuster Measurements Intervals [place] Rate: 80 P: [place]: QRS: -101 QRSD: 192 T: 78 QT: 436 QTc: 507 Interpretive Statements Ventricular-paced complex(es) or rhythm no longer present Electronically Signed On 03-05-2017 17:04:10 CDT by Shahab Schuster
[2017-03-05] MEDS ORDERED: metOLazone 2.5 MG TABLET PO SCH (09:00)
[2017-03-05] MEDS ORDERED: MULTIVITAMIN with MINERAL TABLET. PO SCH (09:00)
[2017-03-05] MEDS ORDERED: POLYETHYLENE GLYCOL 3350 17 GM PACKET. PO SCH (09:00)
[2017-03-05] MEDS ORDERED: ASPIRIN CHEWABLE 81 MG TABLET. PO SCH (09:00)
[2017-03-05] MEDS ORDERED: CHOLECALCIFEROL (VITAMIN D3) 1,000 UNIT TABLET PO SCH (09:00)
[2017-03-05] MEDS ORDERED: POTASSIUM CHLORIDE 20 MEQ TABLET.ER. PO SCH (09:00)
--- NOTE | 2017-03-05 10:08 | PDOC2 ---
CONSULT Date of Consult Date of Consult DATE: 03/05/17 TIME: 10:03 Reason for Consult Reason for Consult: abd pain, n/V, poor po intake, weight loss Referring Physician Referring Physician: Bob Identification/Chief Complaint Chief Complaint abd pain Problems: Source Source: Caregiver, Patient History of Present Illness Reason for Visit: 71 yo M with c/o Left sided and diffuse abd pain, problems with bowels and poor PO intake. Weight loss of several lbs over the past few months. Not much stool as he is not eating much. Stools studies pending per PCP. Pain worse after eating. Past Medical History Cardiovascular: CAD, CHF, HTN, Hyperlipidemia Pulmonary: Other CENTRAL NERVOUS SYSTEM: Other GI: GERD, Hemorrhoids Heme/Onc: Anemia NOS Hepatobiliary: No pertinent hx Psych: No pertinent hx Musculoskeletal: Other (multiple ortho procedures on left knee for infection) Rheumatologic: Gout Infectious disease: Other Renal/: Chronic renal insuff Endocrine: Diabetes Past Surgical History Past Surgical History: Pacemaker, CABG, Total knee replacement, Other Family History Family History: Heart Disease Social History No ALCOHOL: none Drugs: None Lives: with Family Current Problem List Problem List Problems Medical Problems: (1) Cholelithiasis Status: Acute Current Medications Current Medications Current Medications Multi-Ingredient Mouthwash/Gargle (Gi Cocktail Single Dose) 15 ml 1X ONCE SWSW Last administered on 03/04/17 20:02; Start 03/04/17 at 20:00; Stop 03/04/17 at 20:01; Status DC Multi-Ingredient Mouthwash/Gargle (Gi Cocktail Single Dose) 15 ml STK-MED ONCE .ROUTE ; Start 03/04/17 at 20:00; Stop 03/04/17 at 20:01; Status DC Iohexol (Omnipaque 300 Mg/ml) 75 ml 1X ONCE IV Last administered on 03/04/17 20:46; Start 03/04/17 at 20:30; Stop 03/04/17 at 20:31; Status DC Info (Do NOT chart on this entry -- for MONITORING) 1 each PRN DAILY PRN MC SEE COMMENTS; Start 03/04/17 at 20:45; Stop 03/06/17 at 20:44 Sodium Chloride 500 ml @ 500 mls/hr 1X ONCE IV Last administered on 21:00; Start 03/04/17 at 20:45; Stop 03/04/17 at 21:44; Status DC Ondansetron HCl (Zofran) 4 mg PRN Q8HRS PRN IV NAUSEA/VOMITING; Start 03/04/17 at 21:45; Stop 03/05/17 at 21:44 Fentanyl Citrate (Fentanyl 2ml Vial) 50 mcg PRN Q1HR PRN IV PAIN; Start at 21:45; Stop 03/05/17 at 21:44 Sodium Chloride 1,000 ml @ 100 mls/hr Q10H IV Last administered on 03/04/17 23:55; Start 03/04/17 at 21:45; Stop 03/05/17 at 21:44 Fentanyl Citrate (Fentanyl 2ml Vial) 50 mcg 1X ONCE IV Last administered on 23:56; Start 03/04/17 at 22:15; Stop 03/04/17 at 22:16; Status DC Acetaminophen (Tylenol) 500 mg PRN Q12HR PRN PO PAIN; Start 03/04/17 at 22:45 Allopurinol (Zyloprim) 100 mg QHS PO ; Start 03/05/17 at 21:00 Aspirin (Children'S Aspirin) 81 mg DAILY PO Last administered on 03/05/17 08:52 ; Start 03/05/17 at 09:00 Docusate Sodium (Colace) 100 mg PRN BID PRN PO CONSTIPATION; Start 03/04/17 at 22:45 Guaifenesin (MUCINEX ER with DM) 1 tab QHS PO ; Start 03/05/17 at 21:00 Metolazone (Zaroxolyn) 5 mg DAILY PO Last administered on 03/05/17 08:52; Start 03/05/17 at 09:00 Oxycodone/ Acetaminophen (Percocet 5/325) 1 tab PRN Q4HRS PRN PO pain Last administered on 03/05/17 04:19; Start 03/04/17 at 22:45 Simvastatin (Zocor) 20 mg HS PO ; Start 03/05/17 at 21:00 Warfarin Sodium (Coumadin) 5 mg DAILY16 PO ; Start 03/05/17 at 16:00 Non-Formulary Medication 1 tab QFR PO ; Start 03/08/17 at 16:00; Status UNV Bumetanide (Bumex) 2 mg DAILYWBKFT PO Last administered on 03/05/17 08:47; Start 03/05/17 at 08:00 Vitamin D (Vitamin D3) 3,000 unit DAILY PO Last administered on 03/05/17 08:53 ; Start 03/05/17 at 09:00 Insulin Detemir (Levemir) 20 units HS SQ ; Start 03/04/17 at 23:00 Multivitamins (Thera M Plus) 1 tab DAILY PO Last administered on 03/05/17 08:54 ; Start 03/05/17 at 09:00 Potassium Chloride (Klor-Con) 20 meq DAILY PO Last administered on 03/05/17 08: 53; Start 03/05/17 at 09:00 Famotidine (Pepcid) 20 mg BIDAC PO Last administered on 03/05/17 08:53; Start 03/05/17 at 07:30 Linagliptin (Tradjenta) 5 mg DAILYWBKFT PO Last administered on 03/05/17 08:53 ; Start 03/05/17 at 08:00 Insulin Aspart (NovoLOG) 0-9 UNITS QIDACHS SQ ; Start 03/04/17 at 23:00 Dextrose (Dextrose 50%-Water Syringe) 12.5 gm PRN Q15MIN PRN IV SEE COMMENTS; Start 03/04/17 at 22:45 Polyethylene Glycol (miraLAX PACKET) 17 gm DAILY PO Last administered on 08:43; Start 03/05/17 at 09:00 Warfarin Sodium (Coumadin Per Physician) 1 each PRN DAILY PRN MC SEE COMMENTS; Start 03/05/17 at 07:30 Active Scripts Active Colace (Docusate Sodium) 100 Mg Capsule 1 Cap PO BID PRN Metolazone 2.5 Mg Tablet 5 Mg PO DAILY Reported Multi Vitamin Daily (Multivitamin) 1 Each Tablet 1 Each PO DAILY Vitamin D (Cholecalciferol (Vitamin D3)) 2,000 Unit Tablet 3,000 Unit PO DAILY Tylenol Extra Strength (Acetaminophen) 500 Mg Tablet 500 Mg PO PRN Q12HR PRN Augmentin 875-125 Tablet (Amoxicillin/Potassium Clav) 1 Each Tablet 1 Tab PO BID Mucinex Dm Er 600-30 Mg Tablet (Guaifenesin/Dextromethorphan) 1 Each Tab.er.12h 20-400 Each PO QHS Warfarin Sodium 2.5 Mg Tablet 2.5 Mg PO QSU Warfarin Sodium 5 Mg Tablet 5 Mg PO DAILY Potassium Chloride 20 Meq Tablet.er 20 Meq PO DAILY Alendronate Sodium 70 Mg Tablet 1 Tab PO QFR Percocet 5-325 Mg Tablet (Oxycodone/Acetaminophen) 1 Each Tablet 1-2 Tab PO Q4- 6HRS Levemir (Insulin Detemir) 100 Unit/1 Ml Vial 20 Unit SQ HS LAST DOSE GIVEN: DATE:06-23-15 TIME:9:00 p.m. NEXT DOSE DUE: DATE:06-24-15 TIME:9:00 p.m. Simvastatin 20 Mg Tablet 20 Mg PO HS LAST DOSE GIVEN: DATE:06-23-15 TIME:9:00 p.m. NEXT DOSE DUE: DATE:06-24-15 TIME:9:00 p.m. Bumetanide 2 Mg Tablet 2 Mg PO DAILYWBKFT LAST DOSE GIVEN: DATE:06-24-15 TIME:8:30 a.m. NEXT DOSE DUE: DATE:06-25-15 TIME:8:30 a.m. Aspirin 81 Mg Tab.chew 81 Mg PO LAST DOSE GIVEN: DATE:06-24-15 TIME:8:30 a.m. NEXT DOSE DUE: DATE:06-25-15 TIME:8:30 a.m. Januvia (Sitagliptin Phosphate) 100 Mg Tablet 100 Mg PO DAILYWBKFT Not taken while in hosp. May resume at home as directed Allopurinol 100 Mg Tablet 100 Mg PO QHS LAST DOSE GIVEN: DATE: 06/23 TIME: 5 pm NEXT DOSE DUE: DATE: 06/24 TIME: 5 pm Ranitidine Hcl 150 Mg Tablet 150 Mg PO BIDAC LAST DOSE GIVEN: DATE:06-24-15 TIME:8:30 a.m. NEXT DOSE DUE: DATE:06-24-15 TIME: 5:00 p.m. Allergies Allergies: Coded Allergies: Penicillins (Verified Allergy, Intermediate, 08/31/16) Tolerates amoxicillin morphine (Verified Allergy, Intermediate, "it does bad things", 06/21/15) NSAIDS (Non-Steroidal Anti-Inflamma (Verified Adverse Reaction, Severe, AVOIDS DUE TO CHRONIC KIDNEY DISEASE, 06/21/15) ROS General: YES: Appetite Gastrointestinal: Yes Abdominal Pain Physical Exam General: Alert, Oriented X3, Cooperative, No acute distress Abdomen: Soft, No tenderness Vitals VITALS Vital Signs Date Time Temp Pulse Resp B/P (MAP) Pulse Ox O2 Delivery O2 Flow Rate FiO2 03/05/17 07:00 97.5 82 18 129/74 (92) 92 Room Air 97.5 Labs Labs Laboratory Tests Test 03/04/17 19:11 03/04/17 21:00 03/05/17 03:30 03/05/17 07:07 White Blood Count 10.2 x10^3/uL (4.0-11.0) 8.1 x10^3/uL (4.0-11.0) Red Blood Count 5.75 x10^6/uL (4.30-5.70) 5.30 x10^6/uL (4.30-5.70) Hemoglobin 15.6 g/dL (13.0-17.5) 14.4 g/dL (13.0-17.5) Hematocrit 46.8 % (39.0-53.0) 43.0 % (39.0-53.0) Mean Corpuscular Volume 81 fL (79-100) 81 fL (79-100) Mean Corpuscular Hemoglobin 27 pg (25-35) 27 pg (25-35) Mean Corpuscular Hemoglobin Concent 33 g/dL (31-37) 34 g/dL (31-37) Red Cell Distribution Width 15.5 % (11.5-14.5) 15.7 % (11.5-14.5) Platelet Count 211 x10^3/uL (140-400) 180 x10^3/uL (140-400) Neutrophils (%) (Auto) 75 % (31-73) 74 % (31-73) Lymphocytes (%) (Auto) 12 % (24-48) 12 % (24-48) Monocytes (%) (Auto) 10 % (0-9) 10 % (0-9) Eosinophils (%) (Auto) 3 % (0-3) 3 % (0-3) Basophils (%) (Auto) 1 % (0-3) 1 % (0-3) Neutrophils # (Auto) 7.6 x10^3uL (1.8-7.7) 6.0 x10^3uL (1.8-7.7) Lymphocytes # (Auto) 1.2 x10^3/uL (1.0-4.8) 1.0 x10^3/uL (1.0-4.8) Monocytes # (Auto) 1.0 x10^3/uL (0.0-1.1) 0.8 x10^3/uL (0.0-1.1) Eosinophils # (Auto) 0.3 x10^3/uL (0.0-0.7) 0.2 x10^3/uL (0.0-0.7) Basophils # (Auto) 0.1 x10^3/uL (0.0-0.2) 0.1 x10^3/uL (0.0-0.2) Sodium Level 138 mmol/L (136-145) 138 mmol/L (136-145) Potassium Level 4.5 mmol/L (3.5-5.1) 4.1 mmol/L (3.5-5.1) Chloride Level 96 mmol/L (98-107) 99 mmol/L (98-107) Carbon Dioxide Level 36 mmol/L (21-32) 34 mmol/L (21-32) Anion Gap 6 (6-14) 5 (6-14) Blood Urea Nitrogen 23 mg/dL (8-26) 21 mg/dL (8-26) Creatinine 1.3 mg/dL (0.7-1.3) 1.2 mg/dL (0.7-1.3) Estimated GFR (Cockcroft-Gault) 54.1 59.3 BUN/Creatinine Ratio 18 (6-20) 18 (6-20) Glucose Level 239 mg/dL (70-99) 214 mg/dL (70-99) Calcium Level 9.8 mg/dL (8.5-10.1) 9.0 mg/dL (8.5-10.1) Total Bilirubin 0.9 mg/dL (0.2-1.0) 0.8 mg/dL (0.2-1.0) Aspartate Amino Transf (AST/SGOT) 47 U/L (15-37) 36 U/L (15-37) Alanine Aminotransferase (ALT/SGPT) 46 U/L (16-63) 34 U/L (16-63) Alkaline Phosphatase 217 U/L (46-116) 169 U/L (46-116) Total Protein 7.3 g/dL (6.4-8.2) 6.6 g/dL (6.4-8.2) Albumin 3.9 g/dL (3.4-5.0) 3.2 g/dL (3.4-5.0) Albumin/Globulin Ratio 1.1 (1.0-1.7) 0.9 (1.0-1.7) Urine Collection Type Unknown Urine Color Yellow Urine Clarity Clear Urine pH 5.5 Urine Specific [place] 1.020 Urine Protein 100 mg/dL (NEG-TRACE) Urine Glucose (UA) Negative mg/dL (NEG) Urine Ketones (Stick) Negative mg/dL (NEG) Urine Blood Moderate (NEG) Urine Nitrite Negative (NEG) Urine Bilirubin Negative (NEG) Urine Urobilinogen Dipstick 0.2 mg/dL (0.2 mg/dL) Urine Leukocyte Esterase Negative (NEG) Urine RBC 1-2 /HPF (0-2) Urine WBC 0 /HPF (0-4) Urine Squamous Epithelial Cells Occ /LPF Urine Transitional Epithelial Cells Occ /LPF Urine Bacteria 0 /HPF (0-FEW) Urine Hyaline Casts Moderate /HPF Urine Mucus Mod /LPF Triglycerides Level 88 mg/dL (0-150) Cholesterol Level 116 mg/dL (0-200) LDL Cholesterol, Calculated 60 mg/dL (0-100) VLDL Cholesterol, Calculated 18 mg/dL (0-40) Non-HDL Cholesterol Calculated 78 mg/dL (0-129) HDL Cholesterol 38 mg/dL (40-60) Cholesterol/HDL Ratio 3.1 Glucose (Fingerstick) 211 mg/dL (70-99) Laboratory Tests Test 03/04/17 19:11 03/04/17 21:00 03/05/17 03:30 03/05/17 07:07 White Blood Count 10.2 x10^3/uL (4.0-11.0) 8.1 x10^3/uL (4.0-11.0) Red Blood Count 5.75 x10^6/uL (4.30-5.70) 5.30 x10^6/uL (4.30-5.70) Hemoglobin 15.6 g/dL (13.0-17.5) 14.4 g/dL (13.0-17.5) Hematocrit 46.8 % (39.0-53.0) 43.0 % (39.0-53.0) Mean Corpuscular Volume 81 fL (79-100) 81 fL (79-100) Mean Corpuscular Hemoglobin 27 pg (25-35) 27 pg (25-35) Mean Corpuscular Hemoglobin Concent 33 g/dL (31-37) 34 g/dL (31-37) Red Cell Distribution Width 15.5 % (11.5-14.5) 15.7 % (11.5-14.5) Platelet Count 211 x10^3/uL (140-400) 180 x10^3/uL (140-400) Neutrophils (%) (Auto) 75 % (31-73) 74 % (31-73) Lymphocytes (%) (Auto) 12 % (24-48) 12 % (24-48) Monocytes (%) (Auto) 10 % (0-9) 10 % (0-9) Eosinophils (%) (Auto) 3 % (0-3) 3 % (0-3) Basophils (%) (Auto) 1 % (0-3) 1 % (0-3) Neutrophils # (Auto) 7.6 x10^3uL (1.8-7.7) 6.0 x10^3uL (1.8-7.7) Lymphocytes # (Auto) 1.2 x10^3/uL (1.0-4.8) 1.0 x10^3/uL (1.0-4.8) Monocytes # (Auto) 1.0 x10^3/uL (0.0-1.1) 0.8 x10^3/uL (0.0-1.1) Eosinophils # (Auto) 0.3 x10^3/uL (0.0-0.7) 0.2 x10^3/uL (0.0-0.7) Basophils # (Auto) 0.1 x10^3/uL (0.0-0.2) 0.1 x10^3/uL (0.0-0.2) Sodium Level 138 mmol/L (136-145) 138 mmol/L (136-145) Potassium Level 4.5 mmol/L (3.5-5.1) 4.1 mmol/L (3.5-5.1) Chloride Level 96 mmol/L (98-107) 99 mmol/L (98-107) Carbon Dioxide Level 36 mmol/L (21-32) 34 mmol/L (21-32) Anion Gap 6 (6-14) 5 (6-14) Blood Urea Nitrogen 23 mg/dL (8-26) 21 mg/dL (8-26) Creatinine 1.3 mg/dL (0.7-1.3) 1.2 mg/dL (0.7-1.3) Estimated GFR (Cockcroft-Gault) 54.1 59.3 BUN/Creatinine Ratio 18 (6-20) 18 (6-20) Glucose Level 239 mg/dL (70-99) 214 mg/dL (70-99) Calcium Level 9.8 mg/dL (8.5-10.1) 9.0 mg/dL (8.5-10.1) Total Bilirubin 0.9 mg/dL (0.2-1.0) 0.8 mg/dL (0.2-1.0) Aspartate Amino Transf (AST/SGOT) 47 U/L (15-37) 36 U/L (15-37) Alanine Aminotransferase (ALT/SGPT) 46 U/L (16-63) 34 U/L (16-63) Alkaline Phosphatase 217 U/L (46-116) 169 U/L (46-116) Total Protein 7.3 g/dL (6.4-8.2) 6.6 g/dL (6.4-8.2) Albumin 3.9 g/dL (3.4-5.0) 3.2 g/dL (3.4-5.0) Albumin/Globulin Ratio 1.1 (1.0-1.7) 0.9 (1.0-1.7) Urine Collection Type Unknown Urine Color Yellow Urine Clarity Clear Urine pH 5.5 Urine Specific [place] 1.020 Urine Protein 100 mg/dL (NEG-TRACE) Urine Glucose (UA) Negative mg/dL (NEG) Urine Ketones (Stick) Negative mg/dL (NEG) Urine Blood Moderate (NEG) Urine Nitrite Negative (NEG) Urine Bilirubin Negative (NEG) Urine Urobilinogen Dipstick 0.2 mg/dL (0.2 mg/dL) Urine Leukocyte Esterase Negative (NEG) Urine RBC 1-2 /HPF (0-2) Urine WBC 0 /HPF (0-4) Urine Squamous Epithelial Cells Occ /LPF Urine Transitional Epithelial Cells Occ /LPF Urine Bacteria 0 /HPF (0-FEW) Urine Hyaline Casts Moderate /HPF Urine Mucus Mod /LPF Triglycerides Level 88 mg/dL (0-150) Cholesterol Level 116 mg/dL (0-200) LDL Cholesterol, Calculated 60 mg/dL (0-100) VLDL Cholesterol, Calculated 18 mg/dL (0-40) Non-HDL Cholesterol Calculated 78 mg/dL (0-129) HDL Cholesterol 38 mg/dL (40-60) Cholesterol/HDL Ratio 3.1 Glucose (Fingerstick) 211 mg/dL (70-99) Images Images gallstone, possible changes of cirrhosis per CT Assessment/Plan Assessment/Plan abd pain, N/V, poor po intake, weight loss agree with GI evaluation and w/u d/w pt and pt's low suspicion of gallbladder source of pathology, but possible However, pt is poor surgical candidate, given cardiac hx and possible cirrhosis. Thanks for consult! TAMY HAGER MD Mar 05, 2017 10:08
[2017-03-05 10:10] LABS: INR 1.5 (0.8-1.1); PROTHROMBIN TIME PATIENT 17.4 SEC (11.7-14.0)
[2017-03-05 11:00] VITALS: BP 138/80
--- NOTE | 2017-03-05 11:40 | PDOC2 ---
GI CONSULT Reason For Consult: Abdominal pain. HPI: HPI: 71 y/o male with one month h/o upper abdominal pain. Describes achy/"pressure" sensation from umbilicus up. Daily symptoms, not particularly episodic, though waxes and wanes. No real pc bloating, but has noticed early satiety. Worse pc and had curtailed po intake quite a bit. Has not tried any home treatment for this. Imaging here unclear re: any abnormality to account for this. States occasional heartburn after dietary indiscretion. Does have long h/o GERD; can document 2 EGD's in our office showing rather mild, but biopsy-positive esophagitis (no Dixon's). Taking only once-daily h2-lucho at home. No PUD ; gastric biopsies in past negative for H.pylori. No liver or pancreatic issues. Has had persistently elevated alk phos here (but chronic issues with left knee--bony source?). No tobacco or alcohol use. ASA 81mg daily, otherwise no ulcerogenic meds. Fewer stools recently as less po, but no real constipation or diarrhea. No overt bleeding or melena. H/o YUMIKO in past and at one time receiving iron infusions. 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 Last scopes done in 2010 when hospitalized for overt hematochezia and acute anemia. Has lost weight with above symptoms and poor appetite (or afraid to eat ). No nausea or vomiting. PMH: PMH: OA, HTN, DM, ASHD/PCI, Gout. Infected/failed left knee replacement; several procedures related to this. FH: Family History: No pertinent hx Social History: Smoke: No ALCOHOL: none Drugs: None ROS: GEN: Denies fevers, chills, sweats HEENT: Denies blurred vision, sore throat CV: Denies chest pain RESP: Denies shortness of air, cough GI: Per HPI : Denies hematuria, dysuria ENDO: Per HPI NEURO: Denies confusion, dizziness MSK: Denies weakness, joint pain/swelling SKIN: Denies jaundice, pruritus Vitals: Vitals: Vital Signs Date Time Temp Pulse Resp B/P (MAP) Pulse Ox O2 Delivery O2 Flow Rate FiO2 03/05/17 11:00 97.4 82 20 138/80 (99) 95 Room Air 97.4 Labs: Labs: Laboratory Tests Test 03/04/17 19:11 03/04/17 21:00 03/05/17 03:30 03/05/17 07:07 White Blood Count 10.2 x10^3/uL (4.0-11.0) 8.1 x10^3/uL (4.0-11.0) Red Blood Count 5.75 x10^6/uL (4.30-5.70) 5.30 x10^6/uL (4.30-5.70) Hemoglobin 15.6 g/dL (13.0-17.5) 14.4 g/dL (13.0-17.5) Hematocrit 46.8 % (39.0-53.0) 43.0 % (39.0-53.0) Mean Corpuscular Volume 81 fL (79-100) 81 fL (79-100) Mean Corpuscular Hemoglobin 27 pg (25-35) 27 pg (25-35) Mean Corpuscular Hemoglobin Concent 33 g/dL (31-37) 34 g/dL (31-37) Red Cell Distribution Width 15.5 % (11.5-14.5) 15.7 % (11.5-14.5) Platelet Count 211 x10^3/uL (140-400) 180 x10^3/uL (140-400) Neutrophils (%) (Auto) 75 % (31-73) 74 % (31-73) Lymphocytes (%) (Auto) 12 % (24-48) 12 % (24-48) Monocytes (%) (Auto) 10 % (0-9) 10 % (0-9) Eosinophils (%) (Auto) 3 % (0-3) 3 % (0-3) Basophils (%) (Auto) 1 % (0-3) 1 % (0-3) Neutrophils # (Auto) 7.6 x10^3uL (1.8-7.7) 6.0 x10^3uL (1.8-7.7) Lymphocytes # (Auto) 1.2 x10^3/uL (1.0-4.8) 1.0 x10^3/uL (1.0-4.8) Monocytes # (Auto) 1.0 x10^3/uL (0.0-1.1) 0.8 x10^3/uL (0.0-1.1) Eosinophils # (Auto) 0.3 x10^3/uL (0.0-0.7) 0.2 x10^3/uL (0.0-0.7) Basophils # (Auto) 0.1 x10^3/uL (0.0-0.2) 0.1 x10^3/uL (0.0-0.2) Sodium Level 138 mmol/L (136-145) 138 mmol/L (136-145) Potassium Level 4.5 mmol/L (3.5-5.1) 4.1 mmol/L (3.5-5.1) Chloride Level 96 mmol/L (98-107) 99 mmol/L (98-107) Carbon Dioxide Level 36 mmol/L (21-32) 34 mmol/L (21-32) Anion Gap 6 (6-14) 5 (6-14) Blood Urea Nitrogen 23 mg/dL (8-26) 21 mg/dL (8-26) Creatinine 1.3 mg/dL (0.7-1.3) 1.2 mg/dL (0.7-1.3) Estimated GFR (Cockcroft-Gault) 54.1 59.3 BUN/Creatinine Ratio 18 (6-20) 18 (6-20) Glucose Level 239 mg/dL (70-99) 214 mg/dL (70-99) Calcium Level 9.8 mg/dL (8.5-10.1) 9.0 mg/dL (8.5-10.1) Total Bilirubin 0.9 mg/dL (0.2-1.0) 0.8 mg/dL (0.2-1.0) Aspartate Amino Transf (AST/SGOT) 47 U/L (15-37) 36 U/L (15-37) Alanine Aminotransferase (ALT/SGPT) 46 U/L (16-63) 34 U/L (16-63) Alkaline Phosphatase 217 U/L (46-116) 169 U/L (46-116) Total Protein 7.3 g/dL (6.4-8.2) 6.6 g/dL (6.4-8.2) Albumin 3.9 g/dL (3.4-5.0) 3.2 g/dL (3.4-5.0) Albumin/Globulin Ratio 1.1 (1.0-1.7) 0.9 (1.0-1.7) Urine Collection Type Unknown Urine Color Yellow Urine Clarity Clear Urine pH 5.5 Urine Specific [place] 1.020 Urine Protein 100 mg/dL (NEG-TRACE) Urine Glucose (UA) Negative mg/dL (NEG) Urine Ketones (Stick) Negative mg/dL (NEG) Urine Blood Moderate (NEG) Urine Nitrite Negative (NEG) Urine Bilirubin Negative (NEG) Urine Urobilinogen Dipstick 0.2 mg/dL (0.2 mg/dL) Urine Leukocyte Esterase Negative (NEG) Urine RBC 1-2 /HPF (0-2) Urine WBC 0 /HPF (0-4) Urine Squamous Epithelial Cells Occ /LPF Urine Transitional Epithelial Cells Occ /LPF Urine Bacteria 0 /HPF (0-FEW) Urine Hyaline Casts Moderate /HPF Urine Mucus Mod /LPF Triglycerides Level 88 mg/dL (0-150) Cholesterol Level 116 mg/dL (0-200) LDL Cholesterol, Calculated 60 mg/dL (0-100) VLDL Cholesterol, Calculated 18 mg/dL (0-40) Non-HDL Cholesterol Calculated 78 mg/dL (0-129) HDL Cholesterol 38 mg/dL (40-60) Cholesterol/HDL Ratio 3.1 Glucose (Fingerstick) 211 mg/dL (70-99) Test 03/05/17 09:00 Prothrombin Time 17.4 SEC (11.7-14.0) Prothromb Time International Ratio 1.5 (0.8-1.1) Except for mildly elevated alk phos, no real abnormalities of note. Allergies: Coded Allergies: Penicillins (Verified Allergy, Intermediate, 08/31/16) Tolerates amoxicillin morphine (Verified Allergy, Intermediate, "it does bad things", 06/21/15) NSAIDS (Non-Steroidal Anti-Inflamma (Verified Adverse Reaction, Severe, AVOIDS DUE TO CHRONIC KIDNEY DISEASE, 06/21/15) Medications: Current Medications Medications (Trade) Dose Ordered Sig/Logan Route PRN Reason Start Time Stop Time Status Last Admin Dose Admin Multi-Ingredient Mouthwash/Gargle (Gi Cocktail Single Dose) 15 ml 1X ONCE SWSW 03/04/17 20:00 03/04/17 20:01 DC 03/04/17 20:02 Iohexol (Omnipaque 300 Mg/ml) 75 ml 1X ONCE IV 03/04/17 20:30 03/04/17 20:31 DC 03/04/17 20:46 Sodium Chloride 500 ml @ 500 mls/hr 1X ONCE IV 03/04/17 20:45 03/04/17 21:44 DC 03/04/17 21:00 Sodium Chloride 1,000 ml @ 100 mls/hr Q10H IV 03/04/17 21:45 03/05/17 21:44 03/04/17 23:55 Fentanyl Citrate (Fentanyl 2ml Vial) 50 mcg 1X ONCE IV 03/04/17 22:15 03/04/17 22:16 DC 03/04/17 23:56 Aspirin (Children'S Aspirin) 81 mg DAILY PO 03/05/17 09:00 03/05/17 08:52 Metolazone (Zaroxolyn) 5 mg DAILY PO 03/05/17 09:00 03/05/17 08:52 Oxycodone/ Acetaminophen (Percocet 5/325) 1 tab PRN Q4HRS PRN PO pain 03/04/17 22:45 03/05/17 04:19 Bumetanide (Bumex) 2 mg DAILYWBKFT PO 03/05/17 08:00 03/05/17 08:47 Vitamin D (Vitamin D3) 3,000 unit DAILY PO 03/05/17 09:00 03/05/17 08:53 Multivitamins (Thera M Plus) 1 tab DAILY PO 03/05/17 09:00 03/05/17 08:54 Potassium Chloride (Klor-Con) 20 meq DAILY PO 03/05/17 09:00 03/05/17 08:53 Famotidine (Pepcid) 20 mg BIDAC PO 03/05/17 07:30 03/05/17 08:53 Linagliptin (Tradjenta) 5 mg DAILYWBKFT PO 03/05/17 08:00 03/05/17 08:53 Insulin Aspart (NovoLOG) 0-9 UNITS QIDACHS SQ 03/04/17 23:00 03/05/17 07:30 Polyethylene Glycol (miraLAX PACKET) 17 gm DAILY PO 03/05/17 09:00 03/05/17 08:43 Warfarin Sodium (Coumadin Per Physician) 1 each PRN DAILY PRN MC SEE COMMENTS 03/05/17 07:30 03/05/17 10:54 Imaging: Imaging: On sonogram: IMPRESSION: 1. Small gallbladder polyps. 2. Probable tiny calculus in the gallbladder neck. 3. Borderline splenomegaly --less than definite on the gallstone PE: GEN: NAD HEENT: Atraumatic, PERRLA LUNGS: CTAB HEART: RRR, no murmurs ABD: NABS, S/ND/NT, no masses EXTREMITY: No edema post-op changes left knee SKIN: No rashes, no jaundice NEURO/PSYCH: A & O 3 A/P: A/P: IMP: 1. Upper abdominal pain. Story not highly convincing for GB and does have long documented h/o GERD, probably under-treated. 2. Possible small gallstone--unclear this would be a cause of symptoms even if real. 3. H/o YUMIKO, stable currently. 4. Diverticulosis REC: Given multiple co-morbidities, would favor PPI trial for at least 3-4 weeks. OK to use antacids prn. Can f/u with us in the office in 3-4 weeks. At least at this point, doesn't seem endoscopy needed. OK with me to consider home. Thanks. ELE MIR MD Mar 05, 2017 11:40
--- NOTE | 2017-03-05 13:28 | PDOC3 ---
Discharge Summary [facility] Date of Admission: Mar 04, 2017 Discharge Date: Mar 05, 2017 Admitting Diagnosis worsening subacute abd pain, not clear etiology, could 2/2 GERD or constipation low appetite weight loss GERD, cholelithiasis, not the reason to cause the pain likely CAD, WITH h/o CABG Pafib on warfarin ckd3 possible cirrhosis on ct Stable chronic systolic CHF, htn, DM2 Problems: Final Diagnosis CONSULTS gi sx Brief Hospital Course Mr. Julio is a 71 old m, WITH multiple commobidities, came for lower abd pain for 1 month. He has low appetite and weight loss. no N/V. had colonoscopy 5years ago, was told ok. sometime acid reflux. ct showed cholelithiasis, but pain is lower abd, likely not the reason. has constipation, on stool softerner, BM daily or every other day. gi consulted, add pepcid bid. sx consulted, too, pt is a poor candidate. dc home. dc time 35min General: Alert, Oriented X3, Cooperative, No acute distress HEENT: Atraumatic, PERRLA, EOMI, Mucous membr. moist/pink Lungs: Clear to auscultation Heart: S1S2, no murmurs Abdomen: Normal bowel sounds, Soft, middle lower abd mild tenderness Rectal Exam: not examined Extremities: No cyanosis, No edema, Normal pulses Skin: No significant lesion Neuro: Normal speech, Strength at 5/5 X4 ext, Normal tone, Sensation intact Psych/Mental Status: Mental status NL, Mood NL Patient History: Bone cancer 32 MOTHER Family history: Cardiovascular disease (situation) 33 FATHER 32 MOTHER Family history: Diabetes mellitus (situation) 32 MOTHER Family history: Hypertension (situation) 33 FATHER 32 MOTHER Problems: Disposition home CONDITION AT DISCHARGE: Improved Diet cardiac , ada Scheduled Alendronate Sodium (Alendronate Sodium), 1 TAB PO QFR, (Reported) Allopurinol (Allopurinol), 100 MG PO QHS, (Reported) Amoxicillin/Potassium Clav (Augmentin 875-125 Tablet), 1 TAB PO BID, (Reported) Bumetanide (Bumetanide), 2 MG PO DAILYWBKFT, (Reported) Cholecalciferol (Vitamin D3) (Vitamin D), 3,000 UNIT PO DAILY, (Reported) Guaifenesin/Dextromethorphan (Mucinex Dm Er 600-30 Mg Tablet), 20-400 EACH PO QHS, (Reported) Insulin Detemir (Levemir), 20 UNIT SQ HS, (Reported) Metolazone (Metolazone), 5 MG PO DAILY Multivitamin (Multi Vitamin Daily), 1 EACH PO DAILY, (Reported) Oxycodone/Apap 5-325 (Percocet 5-325 Mg Tablet), 1-2 TAB PO Q4-6HRS, (Reported) Potassium Chloride (Potassium Chloride), 20 MEQ PO DAILY, (Reported) Ranitidine Hcl (Ranitidine Hcl), 150 MG PO BIDAC, (Reported) Simvastatin (Simvastatin), 20 MG PO HS, (Reported) Sitagliptin Phosphate (Januvia), 100 MG PO DAILYWBKFT, (Reported) Warfarin Sodium (Warfarin Sodium), 5 MG PO DAILY, (Reported) Warfarin Sodium (Warfarin Sodium), 2.5 MG PO QSU, (Reported) Scheduled PRN Acetaminophen (Tylenol Extra Strength), 500 MG PO PRN Q12HR PRN for PAIN, ( Reported) Docusate Sodium (Colace), 1 CAP PO BID PRN for CONSTIPATION Miscellaneous Medications Aspirin (Aspirin), 81 MG PO, (Reported) Follow Up pcp in 2 weeks VEENA WARNER MD Mar 05, 2017 13:28
[2017-03-05] MEDS ORDERED: WARFARIN 5 MG TABLET. PO SCH (16:00)
[2017-03-05] MEDS ORDERED: ALLOPURINOL 100 MG TABLET. PO SCH (21:00)
[2017-03-05] MEDS ORDERED: SIMVASTATIN 20 MG TABLET PO SCH (21:00)
[2017-03-05] MEDS ORDERED: guaiFENesin DM 600/30MG 1 TAB TAB.ER.12H PO SCH (21:00)
[2017-03-08] MEDS ORDERED: NON FORMULARY ITEM (Alendronate Sodium 1 TAB) PO SCH (16:00)
== END 2017-03-05 13:37 | disposition home or self-care (01) | DRG 392 ==
LOC: ER 18:58 → 6 SOUTH 21:47
PROVIDERS: ADMIT Internal Medicine; ATTEND Internal Medicine
DX: K21.9 Gastro-esophageal reflux disease without esophagitis (principal); I13.0 Hypertensive heart and chronic kidney disease with heart failure and stage 1 through stage 4 chronic kidney disease, or unspecified chronic kidney disease; I50.22 Chronic systolic (congestive) heart failure; K59.00 Constipation, unspecified; K57.90 Diverticulosis of intestine, part unspecified, without perforation or abscess without bleeding; I25.10 Atherosclerotic heart disease of native coronary artery without angina pectoris; Z96.659 Presence of unspecified artificial knee joint; M19.90 Unspecified osteoarthritis, unspecified site; E78.5 Hyperlipidemia, unspecified; R63.4 Abnormal weight loss; E11.22 Type 2 diabetes mellitus with diabetic chronic kidney disease; N18.3 Chronic kidney disease, stage 3 (moderate); R16.1 Splenomegaly, not elsewhere classified; M10.9 Gout, unspecified; K80.20 Calculus of gallbladder without cholecystitis without obstruction; I48.0 Paroxysmal atrial fibrillation; Z82.49 Family history of ischemic heart disease and other diseases of the circulatory system; Z83.3 Family history of diabetes mellitus; Z85.830 Personal history of malignant neoplasm of bone; Z95.1 Presence of aortocoronary bypass graft; Z95.5 Presence of coronary angioplasty implant and graft; Z68.29 Body mass index [BMI] 29.0-29.9, adult; Z88.5 Allergy status to narcotic agent; Z88.0 Allergy status to penicillin; Z88.8 Allergy status to other drugs, medicaments and biological substances
CPT/HCPCS: 36415; 74177; 76700; 80053; 80061; 81001; 82962; 83036; 85027; 85610; 93005; 96360; 96361; J1815; J3010; J7030; J7040; Q9967; 99285-25

== ENCOUNTER → 2017-03-07 | Outpatient (CLI) | payer MEDICARE ==
[2017-03-05 11:00] VITALS: BP 138/80
[2017-03-07 10:42] LABS: ALBUMIN 3.4 g/dL (3.4-5.0); CALCIUM 9.5 mg/dL (8.5-10.1); CREATININE 1.5 mg/dL (0.7-1.3); GFR 45.9; PHOSPHORUS 3.4 mg/dL (2.6-4.7); POTASSIUM 4.2 mmol/L (3.5-5.1)
== END | disposition home or self-care (01) ==
LOC: LAB 10:06
PROVIDERS: ATTEND Nurse Practitioner Family
DX: I12.9 Hypertensive chronic kidney disease with stage 1 through stage 4 chronic kidney disease, or unspecified chronic kidney disease (principal); N18.3 Chronic kidney disease, stage 3 (moderate); E11.22 Type 2 diabetes mellitus with diabetic chronic kidney disease; E11.29 Type 2 diabetes mellitus with other diabetic kidney complication; R80.9 Proteinuria, unspecified; Z68.29 Body mass index [BMI] 29.0-29.9, adult
CPT/HCPCS: 36415; 80069

== ENCOUNTER → 2017-07-01 | Outpatient (CLI) | payer MEDICARE ==
[~2017-07-01] MED LIST changes: -GUAI-107 PO; +GUAI-108 PO
[2017-07-01 10:54] LABS: BASO # 0.1 x10^3/uL (0.0-0.2); BASO % 1 % (0-3); EOS % 3 % (0-3); HEMATOCRIT 42.4 % (39.0-53.0); HEMOGLOBIN 14.3 g/dL (13.0-17.5); LYMPH # 1.1 x10^3/uL (1.0-4.8); LYMPH % 14 % (24-48); MEAN CORPUSCULAR HEMOGLOBIN 29 pg (25-35); MEAN CORPUSCULAR HGB CONC 34 g/dL (31-37); MEAN CORPUSCULAR VOLUME 86 fL (79-100); MONO % 11 % (0-9); NEUT % 71 % (31-73); PLATELET COUNT 177 x10^3/uL (140-400); RED BLOOD COUNT 4.95 x10^6/uL (4.30-5.70); RED CELL DISTRIBUTION WIDTH 13.7 % (11.5-14.5); WHITE BLOOD COUNT 7.8 x10^3/uL (4.0-11.0)
[2017-07-01 11:18] LABS: ALBUMIN 3.4 g/dL (3.4-5.0); CALCIUM 9.5 mg/dL (8.5-10.1); CREATININE 1.2 mg/dL (0.7-1.3); GFR 59.2; MAGNESIUM 1.8 mg/dL (1.8-2.4); PHOSPHORUS 3.2 mg/dL (2.6-4.7)
[2017-07-01 19:14] LABS: PTH INTACT 38 pg/mL (15-65); UR PROTEIN RD 29.6 mg/dL (Not Estab.)
== END | disposition home or self-care (01) ==
LOC: LAB 10:24
PROVIDERS: ATTEND Family Medicine
DX: I12.9 Hypertensive chronic kidney disease with stage 1 through stage 4 chronic kidney disease, or unspecified chronic kidney disease (principal); N18.3 Chronic kidney disease, stage 3 (moderate); E11.22 Type 2 diabetes mellitus with diabetic chronic kidney disease; R80.9 Proteinuria, unspecified; Z68.29 Body mass index [BMI] 29.0-29.9, adult
CPT/HCPCS: 36415; 80069; 82043; 82570; 83735; 83970; 84156; 85025

== ENCOUNTER → 2017-12-06 | Outpatient (CLI) | payer MEDICARE | END | disposition home or self-care (01) | LOC: ECHO 07:58 | DX: I08.1 Rheumatic disorders of both mitral and tricuspid valves (principal); I42.9 Cardiomyopathy, unspecified; I27.20 Pulmonary hypertension, unspecified | CPT/HCPCS: 93306 ==

== ENCOUNTER → 2018-01-21 | Outpatient (CLI) | payer MEDICARE ==
[2018-01-21 08:09] LABS: ADD MAN DIFF? NO
[2018-01-21 08:15] LABS: BASO # 0.1 x10^3/uL (0.0-0.2); BASO % 1 % (0-3); EOS # 0.3 x10^3/uL (0.0-0.7); EOS % 4 % (0-3); HEMOGLOBIN 14.2 g/dL (13.0-17.5); LYMPH # 0.9 x10^3/uL (1.0-4.8); LYMPH % 13 % (24-48); MEAN CORPUSCULAR HEMOGLOBIN 29 pg (25-35); MEAN CORPUSCULAR HGB CONC 35 g/dL (31-37); MEAN CORPUSCULAR VOLUME 84 fL (79-100); MONO # 0.7 x10^3/uL (0.0-1.1); MONO % 9 % (0-9); NEUT # 5.2 x10^3uL (1.8-7.7); NEUT % 73 % (31-73); PLATELET COUNT 157 x10^3/uL (140-400); RED BLOOD COUNT 4.88 x10^6/uL (4.30-5.70); RED CELL DISTRIBUTION WIDTH 13.9 % (11.5-14.5); WHITE BLOOD COUNT 7.2 x10^3/uL (4.0-11.0)
[2018-01-21 08:33] LABS: ALBUMIN 3.3 g/dL (3.4-5.0); ANION GAP 2 (6-14); BLOOD UREA NITROGEN 27 mg/dL (8-26); CALCIUM 9.4 mg/dL (8.5-10.1); CARBON DIOXIDE 37 mmol/L (21-32); CHLORIDE 101 mmol/L (98-107); GLUCOSE 133 mg/dL (70-99); MAGNESIUM 1.7 mg/dL (1.8-2.4); PHOSPHORUS 2.9 mg/dL (2.6-4.7); POTASSIUM 4.1 mmol/L (3.5-5.1); SODIUM 140 mmol/L (136-145)
[2018-01-21 13:19] LABS: TOTAL PROTEIN CREATININE RATIO 351 mg/g creat (0-200); UR CREATININE RD 133.4 mg/dL (Not Estab.); UR PROTEIN RD 46.8 mg/dL (Not Estab.)
[2018-01-21 16:17] LABS: CALCIUM PTH 9.4 mg/dL (8.6-10.2); CREATININE PTH 0.91 mg/dL (0.76-1.27); PHOSPHORUS PTH 2.9 mg/dL (2.5-4.5); PTH INTACT 52 pg/mL (15-65); eGFR AFRICAN-AMER 96 (>59); eGFR NON AFRICAN-AMER 83 (>59)
[2018-01-23 10:30] LABS: CREAT RD UR 133.3 mg/dL (Not Estab.); MICRO CREAT RATIO 122.1 mg/g creat (0.0-30.0); MICROALB RD UR 162.8 ug/mL (Not Estab.)
== END | disposition home or self-care (01) ==
LOC: US 08:19
DX: I13.0 Hypertensive heart and chronic kidney disease with heart failure and stage 1 through stage 4 chronic kidney disease, or unspecified chronic kidney disease (principal); E11.22 Type 2 diabetes mellitus with diabetic chronic kidney disease; I50.9 Heart failure, unspecified; N18.3 Chronic kidney disease, stage 3 (moderate)
CPT/HCPCS: 76770; 80069; 82570; 83735; 83970; 84156; 85025

== ENCOUNTER → 2018-03-24 | Outpatient (CLI) | payer MEDICARE ==
[~2018-03-24] MED LIST changes: +CARV3.122 PO; -FERR-26 PO; +FERR325T14 PO; +GABA-585 PO; +REGADENOSON 0.4 MG/5 ML DISP.SYRIN. IV ONE; +WARF-31 PO; -WARF2TAB7 PO; +WARF2TAB96 PO; +WARF3TAB50 PO; -WARF3TAB7 PO; -WARF5TAB7 PO
--- NOTE | 2018-03-24 14:01 | RAD ---
MR#: [id number] Date of Study: 03/24/2018 Ordering Physician: NANCY GARZA, Referring Physician: ONDINA ELY Tech: RT Jay (R) (N) APPROVED REPORT Test Type: Pharmacological Stress Nurse/Tech: Drea Melchor RN Test Indications: coronary atherosclerosis Cardiac History: Stents, CABG, PPM,smoker, DM Medications: See Electronic Medical Record Medical History: See Electronic Medical Record Resting ECG: V paced Resting Heart Rate: 82 bpm Resting Blood Pressure: 111/67mmHg Pretest Chest Pain: None Nurse/Tech Notes Lungs CTA, S1S2 Consent: The procedure was explained to the patient in lay terms. Informed consent was witnessed. Fili eout was entered into [employer]. History and Stress Test performed by Drea Melchor RN Pharm. Details Pharmacologic stress testing was performed using 0.4mg per 5ml of regadenoson given intravenously ove r 7-10 seconds. Stress Symptoms No chest pain or symptoms. POST EXERCISE Reason for Termination: Infusion complete Max HR: 97 bpm Max Blood Pressure: 122/70mmHg Blood Pressure response to exercise: Normal blood pressure response during stress. Heart Rate response to exercise: normal response Chest Pain: No. Arrhythmia: No. ST Change: No. INTERPRETATION Stress EKG Conclusion: Non-diagnostic EKG due to pacing. Imaging Protocol IMAGE PROTOCOL: Rest Tc-99m/stress Tc-99m 1 day Rest: Stress: Viability: Radiopharm.Tc99m [id number] Sestamibi Woem99sHh 33.6mCi Duration 20min. 13min. Img Date 03/24/2018 03/24/2018 Inj-Img [id number]. 60min. Rest Admin Site:IV - Right AntecubitalAdministrator:RT Ramin (R)(N) Stress Admin Site: IV - Right AntecubitalAdministrator: RT Ramin (R)(N) STRESS DATA End Diast. Vol.155.0mlLVEDV index BSA88.0ml End Syst. Vol.99.0mlLVESV index BSA56.0ml Myocardial Ludu491.0gEject. Ultzlxjj52.0% Stress Scores Regional WT3.00Summed WT41.00 Regional WM2.00Summed WM21.00 LV Perfusion There is a large sized, basal lateral, inferolateral and basal to distal inferior defect suggestive o f prior infarct without reversibility. The distribution of this defect appears to be related to non- ischemic pattern but could represent prior RCA infarct. Wall Motion Severe LV dysfunction. Ef 36%. LV Perf. Quant 17 Seg. SSS13.00 17 Seg. SRS21.00 17 Seg. SDS3.00 Stress Defect Extent (% LAD)1.90Rest Defect Extent (% LAD)20.60Rev. Defect Extent (% LAD)0.60 Stress Defect Extent (% LCX) 47.50Rest Defect Extent (% LCX)93.80Rev. Defect Extent (% LCX)42.50 Stress Defect Extent (% RCA)8.90Rest Defect Extent (% RCA)1.10Rev. Defect Extent (% RCA)8.90 Stress Defect Extent (% LEON)20.20Rest Defect Extent (% LEON)33.70Rev. Defect Extent (% LEON)18.70 Other Information Quality:Average Risk Assessment: Moderate-High Risk Conclusion 1. Non-diagnostic EKG due to pacing artifact. 2. Fixed lateral/inferior defect, probable non-ischemic pattern. 3. Severe LV dysfunction. EF 36% 4. Moderate to high risk for future events. Signed by : Kb Aguirre, Electronically Approved : 03/24/2018 13:59:07
== END | disposition home or self-care (01) ==
LOC: NM 08:30
PROVIDERS: ATTEND Nurse Practitioner
DX: I25.10 Atherosclerotic heart disease of native coronary artery without angina pectoris (principal); I13.0 Hypertensive heart and chronic kidney disease with heart failure and stage 1 through stage 4 chronic kidney disease, or unspecified chronic kidney disease; E11.22 Type 2 diabetes mellitus with diabetic chronic kidney disease; I50.22 Chronic systolic (congestive) heart failure; N18.3 Chronic kidney disease, stage 3 (moderate); I25.2 Old myocardial infarction; K21.9 Gastro-esophageal reflux disease without esophagitis; E78.5 Hyperlipidemia, unspecified; I48.2 Chronic atrial fibrillation; Z83.3 Family history of diabetes mellitus; Z96.652 Presence of left artificial knee joint; Z79.4 Long term (current) use of insulin; Z87.01 Personal history of pneumonia (recurrent); Z87.891 Personal history of nicotine dependence; Z85.830 Personal history of malignant neoplasm of bone
CPT/HCPCS: 78452; 93017; 96374; 96375; 96376; A9500; J2785

== ENCOUNTER → 2018-04-01 | Outpatient (CLI) | payer MEDICARE ==
[~2018-04-01] MED LIST changes: -REGADENOSON 0.4 MG/5 ML DISP.SYRIN. IV ONE
[2018-04-01 16:12] LABS: CALCIUM 9.2 mg/dL (8.5-10.1); CREATININE 1.1 mg/dL (0.7-1.3); GFR 65.4; MAGNESIUM 1.9 mg/dL (1.8-2.4); POTASSIUM 4.5 mmol/L (3.5-5.1)
== END | disposition home or self-care (01) ==
LOC: LAB 14:05
PROVIDERS: ATTEND Nurse Practitioner
DX: I13.0 Hypertensive heart and chronic kidney disease with heart failure and stage 1 through stage 4 chronic kidney disease, or unspecified chronic kidney disease (principal); E11.22 Type 2 diabetes mellitus with diabetic chronic kidney disease; I50.22 Chronic systolic (congestive) heart failure; N18.3 Chronic kidney disease, stage 3 (moderate); I48.0 Paroxysmal atrial fibrillation; K21.9 Gastro-esophageal reflux disease without esophagitis; I25.10 Atherosclerotic heart disease of native coronary artery without angina pectoris; I25.2 Old myocardial infarction; I48.2 Chronic atrial fibrillation; E78.5 Hyperlipidemia, unspecified; Z96.652 Presence of left artificial knee joint; Z95.0 Presence of cardiac pacemaker; Z95.5 Presence of coronary angioplasty implant and graft; Z95.1 Presence of aortocoronary bypass graft; Z87.891 Personal history of nicotine dependence; Z85.830 Personal history of malignant neoplasm of bone; Z68.29 Body mass index [BMI] 29.0-29.9, adult; Z86.2 Personal history of diseases of the blood and blood-forming organs and certain disorders involving the immune mechanism; Z88.0 Allergy status to penicillin; Z88.8 Allergy status to other drugs, medicaments and biological substances; Z88.5 Allergy status to narcotic agent; Z88.6 Allergy status to analgesic agent
CPT/HCPCS: 36415; 80048; 83735